=== PATIENT | male | born 1955 | race Caucasian/White ===

== ENCOUNTER 2017-01-23 14:10 | Emergency (ER) | payer SELFPAY ==
[~2017-01-23] VITALS: Ht 177.8 cm; Wt 119.3 kg
[2017-01-23 14:30] VITALS: BP 154/74
== END 2017-01-23 17:03 | disposition left against medical advice (07) ==
LOC: ER 14:10
DX: R73.9 Hyperglycemia, unspecified (principal); Z53.21 Procedure and treatment not carried out due to patient leaving prior to being seen by health care provider; Z76.0 Encounter for issue of repeat prescription

== ENCOUNTER 2019-01-09 09:30 | Emergency (ER) | payer MEDICAID, OTHER ==
[~2019-01-09] VITALS: Ht 177.8 cm; Wt 113.4 kg
[2019-01-09 11:04] VITALS: BP 134/69
[2019-01-09] MEDS ORDERED: BACITRACIN TOP OINT 1 UD PKG TOP ONE (11:30)
[2019-01-09] MEDS ORDERED: LIDOCAINE 1% HCL (LOCAL ANESTH.) INJ 20ML MDV ONE (11:42)
[2019-01-09] MEDS ORDERED: LIDOCAINE 1% (LOCAL ANESTH.) PF 5ml SDV ID ONE (11:45)
[2019-01-09] MEDS ORDERED: cefTRIAXone SOD 1,000 MG VL IM ONE (12:15)
[2019-01-09] MEDS ORDERED: ALPRAZolam 0.5 MG TAB PO ONE (12:15)
== END 2019-01-09 12:38 | disposition home or self-care (01) ==
LOC: ER 09:33
DX: L02.31 Cutaneous abscess of buttock (principal); K59.00 Constipation, unspecified; R42 Dizziness and giddiness; E11.9 Type 2 diabetes mellitus without complications; E78.5 Hyperlipidemia, unspecified; I10 Essential (primary) hypertension; F17.210 Nicotine dependence, cigarettes, uncomplicated; Z98.61 Coronary angioplasty status
CPT/HCPCS: 10060; 96372; 99283; J0696; J2001

== ENCOUNTER 2019-01-11 10:09 | Emergency (ER) | payer MEDICAID ==
[~2019-01-11] VITALS: Ht 177.8 cm; Wt 117.9 kg
[2019-01-11 11:30] VITALS: BP 117/61
== END 2019-01-11 12:02 | disposition home or self-care (01) ==
LOC: ER 10:09
DX: L02.31 Cutaneous abscess of buttock (principal); E11.9 Type 2 diabetes mellitus without complications; E78.5 Hyperlipidemia, unspecified; I10 Essential (primary) hypertension; F17.200 Nicotine dependence, unspecified, uncomplicated; Z48.00 Encounter for change or removal of nonsurgical wound dressing; Z98.61 Coronary angioplasty status

== ENCOUNTER 2019-05-06 08:22 | Emergency (ER) | payer MEDICAID ==
[~2019-05-06] VITALS: Ht 177.8 cm; Wt 113.4 kg
[2019-05-06 09:30] LABS: Basophils # (auto) 0.1 uL; Eosinophils # (auto) 0.2 uL; Eosinophils % (auto) 2.1 % (0.0-7.0); Hemoglobin 13.8 g/dL (13.5-17.5); Monocytes # (auto) 1.1 uL
[2019-05-06 09:32] LABS: Basophils % (auto) 0.9 % (0.0-2.0); Hematocrit 41.6 % (41.0-53.0); Lymphocytes # (auto) 1.9 uL; Lymphocytes % (auto) 19.3 % (10.0-50.0); Mean Corpuscular Hgb Conc. 33.3 g/dL (32.0-36.0); Mean Corpuscular Volume 81.2 fL (80.0-100.0); Monocytes % (auto) 11.2 % (0.0-12.0); Neutrophils # (auto) 6.7 uL; Neutrophils % (auto) 66.5 % (37.0-80.0); Platelet Count (auto) 229 10^3/uL (140-450); Red Blood Cells 5.12 10^6/uL (4.5-5.90); Red Cell Distribution Width 16.4 % (11.8-14.3); White Blood Cell 10.1 10^3/uL (4.4-10.8)
[2019-05-06 09:43] LABS: Calcium 9.1 mg/dL (8.5-10.1); Potassium 4.2 mmol/L (3.5-5.1)
[2019-05-06 09:48] LABS: Albumin 3.4 g/dL (3.4-5.0); Bilirubin, Total 0.4 mg/dL (0.2-1.0); Total Protein 7.4 g/dL (6.4-8.2)
[2019-05-06 09:51] LABS: INR 1.29 (0.9-1.15); Partial Thromboplastin Time 31.6 sec (23.64-32.05)
[2019-05-06 10:22] VITALS: BP 110/67
== END 2019-05-06 10:31 | disposition home or self-care (01) ==
LOC: ER 08:22
DX: R04.0 Epistaxis (principal); E11.9 Type 2 diabetes mellitus without complications; E78.5 Hyperlipidemia, unspecified; I10 Essential (primary) hypertension; F17.200 Nicotine dependence, unspecified, uncomplicated; Z98.61 Coronary angioplasty status
CPT/HCPCS: 30901; 36415; 80053; 82962; 85025; 85610; 85730

== ENCOUNTER 2019-05-06 16:03 | Emergency (ER) | payer MEDICAID ==
[~2019-05-06] VITALS: Ht 177.8 cm; Wt 113.4 kg
[2019-05-06 16:23] VITALS: BP 135/62
== END 2019-05-06 17:00 | disposition left against medical advice (07) ==
LOC: ER 16:06
DX: R04.0 Epistaxis (principal); I25.10 Atherosclerotic heart disease of native coronary artery without angina pectoris; E11.9 Type 2 diabetes mellitus without complications; E78.5 Hyperlipidemia, unspecified; I10 Essential (primary) hypertension; F17.210 Nicotine dependence, cigarettes, uncomplicated; Z98.61 Coronary angioplasty status; Z53.29 Procedure and treatment not carried out because of patient's decision for other reasons
CPT/HCPCS: 30901

== ENCOUNTER 2025-04-08 08:20 | Inpatient (IN) | payer OTHER, MEDICAID ==
[~2025-04-08] VITALS: Ht 177.8 cm; Wt 95.2 kg
--- NOTE | 2025-04-08 08:43 | ED.PDOC ---
History of Present Illness HPI Comments 69-year-old male presents to the ER with spouse and with the prior medical history of her lipids, CAD, AFib, hypertension; surgical history of pacemaker, stent placed three months ago and is taking Plavix as well as the chief complaint of diarrhea for five weeks. Patient reports on having diarrhea for the past five week which is non-stopped and watery. Patient nodes on feeling weak, and has not seen his PCP. Denies chills, fever, N/V, SOB, CP. No other associated symptoms, modifiers, recent injuries or sick contacts present at this time. Chief Complaint: Diarrhea Time Seen by MD: 08:30 Primary Care Provider: CASSANDRA Reviewed Notes: Nurses Notes, Medications, Allergies Allergies: Coded Allergies: NO KNOWN ALLERGIES (Unverified , 01/23/17) Information Source: Patient Mode of Arrival: Ambulatory Severity: Moderate Timing: Weeks Duration: Since onset Prehospital treatment: None Past Medical History PAST MEDICAL HISTORY: AFIB, CAD, High Lipids, HTN Surgical History: Pacemaker Surgical History (Other): Stent placed 3 months ago in is taking Plavix currently Family History Family History: Reviewed,noncontributory to illness, Unknown Social History Smoker: Non-Smoker Alcohol: Denies ETOH Use Drugs: Denies Drug Use Lives In: Home Constitutional: reports: weakness; denies: chills, diaphoresis, fatigue, fever, malaise, sweats, others EENTM: denies: blurred vision, double vision, ear bleeding, ear discharge, ear drainage, ear pain, ear ringing, eye pain, eye redness, hearing loss, mouth pain, mouth swelling, nasal discharge, nose bleeding, nose congestion, nose pain, photophobia, tearing, throat pain, throat swelling, voice changes, others Respiratory: denies: cough, hemoptysis, orthopnea, SOB at rest, shortness of breath, SOB with excertion, stridor, wheezing, others Cardiovascular: denies: chest pain, dizzy spells, diaphoresis, Dyspnea on exertion, edema, irregular heart beat, left arm pain, lightheadedness, palpitations, PND, syncope, others Gastrointestinal: reports: diarrhea; denies: abdomen distended, abdominal pain, blood streaked bowels, constipated, dysphagia, difficulty swallowing, hematemes is, melena, nausea, poor appetite, poor fluid intake, rectal bleeding, rectal pain, vomiting, others Genitourinary: denies: burning, dysuria, flank pain, frequency, hematuria, incontinence, penile discharge, penile sore, pain, testicle pain, testicle swelling, urgency, others Neurological: denies: dizziness, fainting, headache, left sided numbness, left sided weakness, numbness, paresthesia, pre-existing deficit, right sided numbness, right sided weakness, seizure, speech problems, tingling, tremors, weakness, others Musculoskeletal: denies: back pain, gout, joint pain, joint swelling, muscle pain, muscle stiffness, neck pain, others Integumetry: denies: bruises, change in color, change in hair/nails, dryness, laceration, lesions, lumps, rash, wounds, others Allergic/Immunocompromised: denies: Difficulty Healing, Frequent Infections, Hives, Itching, others Hematologic/Lymphatic: denies: anemia, blood clots, easy bleeding, easy bruising, swollen glands, others Endocrine: denies: excessive hunger, excessive sweating, excessive thirst, excessive urination, flushing, intolerance to cold, intolerance to heat, unex plained weight gain, unexplained weight loss, others Psychiatric: denies: anxiety, bipolar disorder, depression, hopeless, panic disorder, schizophrenia, sleepless, suicidal, others All Other Systems: Reviewed and Negative Physical Exam General Appearance: Moderate Distress, Normal HEENT: Normal ENT Inspection, Pharynx Normal, TMs Normal Neck: Full Range of Motion, Non-Tender, Normal, Normal Inspection Respiratory: Chest Non-Tender, Lungs Clear, No Accessory Muscle Use, No Respiratory Distress, Normal Breath Sounds Cardiovascular: No Edema, No JVD, No Murmur, No Gallop, Normal Peripheral Pulses, Regular Rate/Rhythm Breast Exam: Deferred Gastrointestinal: No Organomegaly, Non Tender, No Pulsatile Mass, Normal Bowel Sounds, Soft Genitalia: Deferred Pelvic: Deferred Rectal: Deferred Extremities: No calf tenderness, Normal capillary refill, Normal inspection, Normal range of motion, Non-tender, No pedal edema Musculoskeletal : Apperance: Normal Neurologic: Alert, guard captain II-XII nml as Tested, No Motor Deficits, Normal Affect, Normal Mood, No Sensory Deficits Cerebellar Function: Normal Reflexes: Normal Skin: Dry, Pallor, Warm Lymphatic: No Adenopathy Was a procedure done? Was a procedure done?: No Differential Dx Considerations may include: Gastroenteritis Electrolyte imbalance X-Ray, Labs, Meds, VS Vital Signs Date Time Temp Pulse Resp B/P (MAP) Pulse Ox O2 Delivery O2 Flow Rate FiO2 04/08/25 10:06 97.9 60 18 108/52 (70) 96 97.9 04/08/25 08:36 98.0 82 16 119/59 (79) 96 98.0 Lab Test 04/08/25 09:50 04/08/25 08:46 Range/Units Urine Color Light-yellow Yellow Urine Clarity Clear Clear Urine pH 5.0 5.0-9.0 Urine Specific [place] 1.030 1.001-1.035 Urine Protein Negative Negative Urine Ketones Negative Negative Urine Blood Trace H Negative /uL Urine Nitrite Negative Negative Urine Bilirubin Negative Negative Urine Urobilinogen Normal Negative mg/dL Urine Leukocyte Esterase Negative Negative /uL Urine RBC 1 0 - 3 /hpf Urine Microscopic WBC < 1 0-3 /HPF Urine Squamous Epithelial Cells None seen <5 /hpf Urine Bacteria None seen None Seen /hpf Urine Glucose 4+ H Normal mg/dL Stool for White Cells Pending White Blood Count 8.3 4.4-10.8 10^3/uL Red Blood Count 5.63 4.5-5.90 10^6/uL Hemoglobin 17.4 13.5-17.5 g/dL Hematocrit 50.9 41.0-53.0 % Mean Corpuscular Volume 90.5 80.0-100.0 fL Mean Corpuscular Hemoglobin 30.9 28.0-32.0 pg Mean Corpuscular Hemoglobin Concent 34.1 32.0-36.0 g/dL Red Cell Distribution Width 16.2 H 11.8-14.3 % Platelet Count 155 140-450 10^3/uL Mean Platelet Volume 7.8 6.9-10.8 fL Neutrophils (%) (Auto) 69.3 37.0-80.0 % Lymphocytes (%) (Auto) 15.3 10.0-50.0 % Monocytes (%) (Auto) 13.2 H 0.0-12.0 % Eosinophils (%) (Auto) 1.2 0.0-7.0 % Basophils (%) (Auto) 1.0 0.0-2.0 % Neutrophils # (Auto) 5.7 1.6-8.6 10 ^3/uL Lymphocytes # (Auto) 1.3 0.4-5.4 10 ^3/uL Monocytes # (Auto) 1.1 0-1.3 10 ^3/uL Eosinophils # (Auto) 0.1 0-0.8 10 ^3/uL Basophils # (Auto) 0.1 0-0.2 10 ^3/uL Nucleated Red Blood Cells 0.3 % Sodium Level 140 136-145 mmol/L Potassium Level 4.0 3.5-5.1 mmol/L Chloride Level 109 H 98-107 mmol/L Carbon Dioxide Level 26 20-31 mmol/L Anion Gap 5 5-15 Blood Urea Nitrogen 14 9-23 mg/dL Creatinine 1.03 0.700-1.30 mg/dL Glomerular Filtration Rate Calc 79 >90 mL/min BUN/Creatinine Ratio 13.6 10.0-20.0 Serum Glucose 165 H 74-106 mg/dL Calcium Level 9.7 8.7-10.4 mg/dL Current Medications Medications (Trade) Dose Ordered Sig/Baldomero Route Start Time Stop Time Status Last Admin Sodium Chloride 1,000 ml @ 1,000 mls/hr Q1H ONCE IV 04/08/25 08:45 04/08/25 09:44 DC 04/08/25 09:48 Diphenoxylate HCl/ Atropine (Lomotil Tablet) 5 mg ONCE ONCE PO 04/08/25 08:45 04/08/25 08:46 DC 04/08/25 09:50 Patient alert. Complaining of generalized weakness. Has been having diarrhea for many weeks. Vitals stable. Answering questions. Establish intravenous access. Was given fluids. Was given Lomotil. Has a pacemaker in place. Cardiac stent in place. He is taking his blood thinner. Reviewed his history. Continue monitoring. Time of 1ST Reevaluation: 09:00 Reevaluation 1ST: Unchanged Patient Education/Counseling: Diagnosis, Treatment, Prognosis Family Education/Counseling: Diagnosis, Treatment, Prognosis Departure 1 Departure Time of Disposition: 09:06 Impression: Primary Impression: Gastroenteritis Disposition: ADMITTED INPATIENT Admit to: Med Surg Condition: Guarded Critical Care Note Critical Care Time?: No Stability Stability form required: No Heart Score Heart Score: Heart Score Response (Comments) Value History Slightly Suspicious 0 EKG Normal 0 Age >65 2 Risk Factors >3 or Hx ASHD 2 Troponin N/A 0 Total 4 I personally scribed for SHAQUILLE WATSON MD ([email or web address]) on 04/08/25 at 08:43. Electronically submitted by Ashish Loredo ([email or web address]). SHAQUILLE WATSON MD Apr 08, 2025 08:43
[2025-04-08 08:59] LABS: Basophils # (auto) 0.1 10 ^3/uL (0-0.2); Eosinophils # (auto) 0.1 10 ^3/uL (0-0.8); Eosinophils % (auto) 1.2 % (0.0-7.0); Hematocrit 50.9 % (41.0-53.0); Hemoglobin 17.4 g/dL (13.5-17.5); Lymphocytes # (auto) 1.3 10 ^3/uL (0.4-5.4); Lymphocytes % (auto) 15.3 % (10.0-50.0); Mean Corpuscular Hemoglobin 30.9 pg (28.0-32.0); Mean Corpuscular Hgb Conc. 34.1 g/dL (32.0-36.0); Mean Corpuscular Volume 90.5 fL (80.0-100.0); Monocytes # (auto) 1.1 10 ^3/uL (0-1.3); Monocytes % (auto) 13.2 % (0.0-12.0); Neutrophils # (auto) 5.7 10 ^3/uL (1.6-8.6); Neutrophils % (auto) 69.3 % (37.0-80.0); Nucleated Red Blood Cells % 0.3 %; Platelet Count (auto) 155 10^3/uL (140-450); Red Blood Cells 5.63 10^6/uL (4.5-5.90); Red Cell Distribution Width 16.2 % (11.8-14.3); White Blood Cell 8.3 10^3/uL (4.4-10.8)
[2025-04-08 09:07] LABS: Sodium 140 mmol/L (136-145)
[2025-04-08 09:08] LABS: Anion Gap 5 (5-15); Calcium 9.7 mg/dL (8.7-10.4); Carbon Dioxide 26 mmol/L (20-31)
[2025-04-08 09:10] LABS: Chloride 109 mmol/L (98-107)
[2025-04-08 09:13] LABS: BUN/Creatinine Ratio 13.6 (10.0-20.0); Blood Urea Nitrogen 14 mg/dL (9-23)
[2025-04-08 09:22] LABS: Glucose 165 mg/dL (74-106)
[2025-04-08] MEDS: SODIUM CHLORIDE 0.9% 1,000 ML IV ONE ×2 (09:48→12:06)
[2025-04-08] MEDS: DIPHENOXYLATE W/ATROPINE 2.5 MG TAB PO ONE (09:50)
[2025-04-08 10:07] LABS: Urine Bacteria None Seen /hpf (None Seen)
[2025-04-08 10:16] LABS: Urine Blood TRACE /uL (Negative); Urine Clarity Clear (Clear); Urine Color Light-Yellow (Yellow); Urine Protein, UAD Negative (Negative); Urine Squamous Epithelial Cell None Seen /hpf (<5); Urine Urobilinogen Normal (Negative); Urine WBC < 1 /HPF (0-3)
[2025-04-08] MEDS ORDERED: ONDANSETRON HCL 4 MG/2 ML VIAL IV PRN (11:45)
[2025-04-08] MEDS ORDERED: ACETAMINOPHEN 325 MG TAB PO PRN ×2 (11:45→13:15)
[2025-04-08] MEDS ORDERED: DEXTROSE (50%) 50ML SYRG IV PRN (11:45)
[2025-04-08] MEDS ORDERED: TIZA-142 PO (11:51)
[2025-04-08] MEDS ORDERED: INSU1INJ19 SC (11:51)
[2025-04-08] MEDS ORDERED: MET25T PO (11:51)
[2025-04-08] MEDS ORDERED: CLOP75TA70 PO (11:51)
[2025-04-08] MEDS ORDERED: GABA-1250 PO (11:51)
[2025-04-08] MEDS ORDERED: FERR325T20 PO (11:51)
[2025-04-08] MEDS ORDERED: ALLO300T2 PO (11:51)
[2025-04-08] MEDS ORDERED: HYDR-4072 PO (11:51)
[2025-04-08] MEDS ORDERED: FINE10TA PO (11:51)
[2025-04-08] MEDS ORDERED: SIMV40TA18 PO (11:51)
[2025-04-08] MEDS ORDERED: RIVA10TA2 PO (11:51)
[2025-04-08] MEDS ORDERED: ISOS1TAB28 PO (11:51)
[2025-04-08] MEDS ORDERED: DAPA5TAB2 PO (11:51)
--- NOTE | 2025-04-08 12:22 | DVHHP2 ---
History of Present Illness Reason for Visit: Diarrhea History of Present Illness Huber Sam is a 69-year-old male with past medical history of coronary artery disease, peripheral artery disease, hyperlipidemia, hypertension, diabetes, peripheral neuropathy, and atrial fibrillation who came in for diarrhea for 5 weeks. Patient states he has not sought treatment for his diarrhea due to being afraid he would have an accident while waiting. He states he was using the restroom every 15 minutes and now it is more frequently. He states he started having accidents in his sleep, that he had 2 last night. He states the diarrhea has a foul odor. Cardiovascular: AFIB, CAD, HTN, hyperipidemia Endocrine: Diabetes Past Surgical History: Appendectomy, Other (Pacemaker, cardiac stent, right foot 1st & 2nd toe amputation,), Tonsillectomy Smoke: <1 pack per day ALCOHOL: none Drugs: None Lives: with Family Domestic Violence: Neg Review of Systems Constitutional: No: Fever, Chills, Sweats, Weakness, Malaise, Other Eyes: No: Pain, Vision change, Conjunctivae inflammation, Eyelid inflammation, Other, Redness ENT: No: Ear pain, Ear discharge, Nose pain, Nose discharge, Nose congestion, Mouth pain, Mouth swelling, Throat pain, Throat swelling, Other Respiratory: No: Cough, Dry, Shortness of breath, SOB with excertion, Wheezing, Hemoptysis, Pleuritic Pain, Sputum, Wheezing, Other Cardiovascular: No: Chest Pain, Palpitations, Orthopnea, Paroxysmal Noc. Dyspnea, Edema, Lt Headedness, Other Gastrointestinal: Diarrhea; No: Nausea, Vomiting, Abdominal Pain, Constipation, Melena, Hematochezia, Other Genitourinary: No Dysuria, No Frequency, No Incontinence, No Hematuria, No Retention, No Other Musculoskeletal: No: other, neck pain, shoulder pain, arm pain, back pain, hand pain, leg pain, foot pain Skin: No: Rash, Lesions, Jaundice, Bruising, Other Neurological: No: Weakness, Numbness, Incoordination, Change in speech, Confusion, Seizures, Other Allergies: Coded Allergies: NO KNOWN ALLERGIES (Unverified , 01/23/17) Medications Current Medications Medications Dose Ordered Sig/Baldomero Route Start Time Stop Time Status Last Admin Dose Admin Ondansetron HCl 4 mg Q4HP PRN IV 04/08/25 11:45 UNV Acetaminophen 650 mg Q6HP PRN PO 04/08/25 11:45 UNV Metronidazole 500 mg Q8HR PO 04/08/25 14:00 UNV Diagnostic Test (Pha) 1 strip ACHS 04/08/25 17:00 UNV Insulin Human Regular ACHS SC 04/08/25 17:00 UNV Dextrose 50 ml UD PRN IV 04/08/25 11:45 UNV Exam Vital Signs Vital Signs Date Time Temp Pulse Resp B/P (MAP) Pulse Ox O2 Delivery O2 Flow Rate FiO2 04/08/25 11:26 77 20 111/50 (70) 96 04/08/25 10:06 97.9 97.9 General Appearance: Alert, Oriented X3, Cooperative HEENT: Atraumatic, PERRLA Respiratory: Clear to auscultation, Normal air movement Cardiovascular: Regular rate, Normal S1, Normal S2 Abdominal: Normal bowel sounds, Soft, No tenderness, Other Extremities: No clubbing, No cyanosis, No edema Skin: No rashes, No breakdown, No significant lesion Neuro: Normal gait, Normal speech, Strength at 5/5 X4 ext, Normal tone, Sensation intact Psych/Mental Status: Mental status NL, Mood NL Labs/Xrays Labs Test 04/08/25 09:50 04/08/25 08:46 Range/Units Urine Color Light-yellow Yellow Urine Clarity Clear Clear Urine pH 5.0 5.0-9.0 Urine Specific [place] 1.030 1.001-1.035 Urine Protein Negative Negative Urine Ketones Negative Negative Urine Blood Trace H Negative /uL Urine Nitrite Negative Negative Urine Bilirubin Negative Negative Urine Urobilinogen Normal Negative mg/dL Urine Leukocyte Esterase Negative Negative /uL Urine RBC 1 0 - 3 /hpf Urine Microscopic WBC < 1 0-3 /HPF Urine Squamous Epithelial Cells None seen <5 /hpf Urine Bacteria None seen None Seen /hpf Urine Glucose 4+ H Normal mg/dL Stool for White Cells None seen White Blood Count 8.3 4.4-10.8 10^3/uL Red Blood Count 5.63 4.5-5.90 10^6/uL Hemoglobin 17.4 13.5-17.5 g/dL Hematocrit 50.9 41.0-53.0 % Mean Corpuscular Volume 90.5 80.0-100.0 fL Mean Corpuscular Hemoglobin 30.9 28.0-32.0 pg Mean Corpuscular Hemoglobin Concent 34.1 32.0-36.0 g/dL Red Cell Distribution Width 16.2 H 11.8-14.3 % Platelet Count 155 140-450 10^3/uL Mean Platelet Volume 7.8 6.9-10.8 fL Neutrophils (%) (Auto) 69.3 37.0-80.0 % Lymphocytes (%) (Auto) 15.3 10.0-50.0 % Monocytes (%) (Auto) 13.2 H 0.0-12.0 % Eosinophils (%) (Auto) 1.2 0.0-7.0 % Basophils (%) (Auto) 1.0 0.0-2.0 % Neutrophils # (Auto) 5.7 1.6-8.6 10 ^3/uL Lymphocytes # (Auto) 1.3 0.4-5.4 10 ^3/uL Monocytes # (Auto) 1.1 0-1.3 10 ^3/uL Eosinophils # (Auto) 0.1 0-0.8 10 ^3/uL Basophils # (Auto) 0.1 0-0.2 10 ^3/uL Nucleated Red Blood Cells 0.3 % Sodium Level 140 136-145 mmol/L Potassium Level 4.0 3.5-5.1 mmol/L Chloride Level 109 H 98-107 mmol/L Carbon Dioxide Level 26 20-31 mmol/L Anion Gap 5 5-15 Blood Urea Nitrogen 14 9-23 mg/dL Creatinine 1.03 0.700-1.30 mg/dL Glomerular Filtration Rate Calc 79 >90 mL/min BUN/Creatinine Ratio 13.6 10.0-20.0 Serum Glucose 165 H 74-106 mg/dL Calcium Level 9.7 8.7-10.4 mg/dL Assessment/Plan Assessment/Plan Assessment: Gastroenteritis, Possible C-Diff, Wounds to bilateral feet, Hypertension, Coronary artery disease, Peripheral artery disease, Atrial fibrillation, Hyperlipidemia, Diabetes, Plan: Admit to Med-Surg, Send stool for C-Diff, ova/parasites, WBC, and culture, IV hydration, Start PO antibiotics, Wound care consult, Consider GI consult, Home medications reconciled, Plan discussed with: Patient, Spouse My Orders Orders - SANCHO PEREZ Procedure Category Date Status Time Ova & Parasite Exam [facility] 04/08/25 Logged 11:11 Admit ADMIT 6/2/25 Transmitted 11:41 Code Status CODE 04/08/25 Transmitted 11:41 Ondansetron Hcl PHA 04/08/25 Logged (Zofran) 11:45 Complete Blood Count LAB 04/09/25 Verified 04:00 Comprehensive LAB 04/09/25 Verified Metabolic Panel 04:00 Condition: Serious IRENE 04/08/25 In Process 11:41 Acetaminophen Tablet PHA 04/08/25 Logged (Tylenol Tablet) 11:45 Metronidazole Tablet PHA 04/08/25 Logged (Flagyl Tablet) 14:00 Sodium Chloride 0.9% PHA 04/08/25 Logged 11:45 Glucose Blood PHA 04/08/25 Logged (Accu-Chek Comfort 17:00 Insulin R (Human) PHA 04/08/25 Logged (Insulin R) 17:00 Dextrose 50% Syringe PHA 04/08/25 Logged 11:45 Clopidogrel Bisulfate PHA 04/09/25 Transmitted (Plavix) 10:00 Gabapentin Capsule PHA 04/08/25 Transmitted (Neurontin Capsule) 14:00 Hydrocodone-Acet PHA 04/08/25 Transmitted 10/325mg Tab ([place] 12:00 Metoprolol Tartrate PHA 04/08/25 Transmitted Tablet (Lopressor Ta 22:00 Rivaroxaban Tablet PHA 04/09/25 Transmitted (Xarelto Tablet) 10:00 (Nf) Allopurinol PHA 04/09/25 Transmitted 10:00 (Nf) Dapagliflozin PHA 04/09/25 Transmitted Propanediol 10:00 (Nf) Ferrous Sulfate PHA 04/09/25 Transmitted (Ferosul) 10:00 (Nf) Finerenone PHA 04/09/25 Transmitted (Kerendia) 10:00 (Nf) Insulin Glargine PHA 04/09/25 Transmitted (Basaglar Kwikpen) 10:00 (Nf) Isosorbide PHA 04/09/25 Transmitted Mononitrate 10:00 (Nf) Tizanidine PHA 04/08/25 Transmitted Hydrochloride 12:00 Atorvastatin (Lipitor) PHA 04/08/25 Transmitted 22:00 Date of Service: Apr 08, 2025 Billing Provider: SANCHO PEREZ Common Visit Codes: [id number] INP/OBS CARE (MOD) SANCHO PEREZ Apr 08, 2025 12:22
[2025-04-08] MEDS: Tizanidine Hydrochloride 4 MG TABLET PO SCH (14:49)
[2025-04-08] MEDS: GABAPENTIN 300 MG CAP PO SCH (14:51)
[2025-04-08] MEDS: metroNIDAZOLE 500 MG TAB PO SCH (14:51)
[2025-04-08] MEDS: ACCU-CHEK COMFORT CURVE STRIP VI SCH (17:00)
[2025-04-08] MEDS: InsuLIN REG 1unit/0.01ml Soln (100units/ml) SC SCH (17:00)
[2025-04-08] MEDS: VANCOMYCIN HCL 250 MG CAP PO SCH (18:24)
[2025-04-08] MEDS: ATORVASTATIN 20 MG TAB PO SCH (22:13)
[2025-04-08] MEDS: METOPROLOL TARTRATE 25 MG TAB PO SCH (22:14)
[2025-04-08 22:30] VITALS: PULSE 92; RESP 15; O2SAT 98
[2025-04-09 06:58] LABS: Basophils # (auto) 0.1 10 ^3/uL (0-0.2); Eosinophils # (auto) 0.1 10 ^3/uL (0-0.8); Eosinophils % (auto) 2.1 % (0.0-7.0); Hematocrit 48.1 % (41.0-53.0); Hemoglobin 16.3 g/dL (13.5-17.5); Lymphocytes # (auto) 1.5 10 ^3/uL (0.4-5.4); Lymphocytes % (auto) 21.3 % (10.0-50.0); Mean Corpuscular Hemoglobin 30.6 pg (28.0-32.0); Mean Corpuscular Hgb Conc. 33.9 g/dL (32.0-36.0); Mean Corpuscular Volume 90.2 fL (80.0-100.0); Monocytes % (auto) 13.7 % (0.0-12.0); Neutrophils # (auto) 4.4 10 ^3/uL (1.6-8.6); Neutrophils % (auto) 61.9 % (37.0-80.0); Nucleated Red Blood Cells % 0.2 %; Platelet Count (auto) 140 10^3/uL (140-450); Red Blood Cells 5.33 10^6/uL (4.5-5.90); Red Cell Distribution Width 15.8 % (11.8-14.3); White Blood Cell 7.1 10^3/uL (4.4-10.8)
[2025-04-09 07:17] LABS: Alanine Aminotransferase 20 U/L (7-40); Albumin 4.2 g/dL (3.2-4.8); Alkaline Phosphatase 66 U/L (46-116); Anion Gap 9 (5-15); Aspartate Aminotransferase 20 U/L (13-40); BUN/Creatinine Ratio 15.7 (10.0-20.0); Blood Urea Nitrogen 13 mg/dL (9-23); Calcium 9.1 mg/dL (8.7-10.4); Carbon Dioxide 23 mmol/L (20-31); Glucose 76 mg/dL (74-106); Potassium 4.1 mmol/L (3.5-5.1); Sodium 139 mmol/L (136-145); Total Protein 6.5 g/dL (5.7-8.2)
[2025-04-09 07:18] LABS: Bilirubin, Total 0.8 mg/dL (0.2-1.0)
[2025-04-09 07:22] LABS: Chloride 107 mmol/L (98-107)
[2025-04-09] MEDS: FERROUS SULFATE 325mg EC TAB PO SCH (08:39)
[2025-04-09] MEDS: ISOSORBIDE MONONITRATE ER 60 MG TAB PO SCH (08:39)
[2025-04-09] MEDS: ALLOPURINOL 100 MG TAB PO SCH (08:40)
[2025-04-09] MEDS: CLOPIDOGREL BISULFATE 75 MG TAB PO SCH (08:40)
[2025-04-09] MEDS: DAPAGLIFLOZIN PROPANEDIOL 5 MG PO SCH (10:00)
[2025-04-09] MEDS: FINERENONE 10 MG PO SCH (10:00)
[2025-04-09] MEDS: RIVAROXABAN 10 MG TAB PO SCH (10:54)
[2025-04-09 11:42] VITALS: BP 116/53; PULSE 66; RESP 17; TEMP 98.2; O2SAT 97
[2025-04-09] MEDS: HYDROcodone-ACET 10/325MG TAB PO PRN (12:41)
[2025-04-09 13:00] VITALS: BP 115/69; PULSE 77; RESP 18; TEMP 97.9; O2SAT 98
--- NOTE | 2025-04-09 13:55 | DVHPN2 ---
Subjective 69-year-old male with a history of AFib, hypertension, type 2 diabetes came with a chief complaint of diarrhea for 5 weeks Apparently he had bilateral leg cellulitis about 2 months ago and [facility] and was given antibiotics and then following that after he finished antibiotics his diarrhea started He has been having it for 5 weeks and he was not better is to seek medical attention until now Changes from previous H/P or p: Changes Eyes: No Pain, No Vision change, No Conjunctivae inflammation, No Eyelid inflammation, No Other, No Redness ENT: No Ear pain, No Ear discharge, No Nose pain, No Nose discharge, No Nose congestion, No Mouth pain, No Mouth swelling, No Throat pain, No Throat swelling, No Other Cardiovascular: No Chest Pain, No Palpitations, No Orthopnea, No Paroxysmal Noc. Dyspnea, No Edema, No Lt Headedness, No Other Respiratory: No Cough, No Dry, No Shortness of breath, No SOB with excertion, No Wheezing, No Hemoptysis, No Pleuritic Pain, No Sputum, No Other Gastrointestinal: No Nausea, No Vomiting, No Abdominal Pain; Diarrhea; No Constipation, No Melena, No Hematochezia, No Other Genitourinary: No Dysuria, No Frequency, No Incontinence, No Hematuria, No Retention, No Other Musculoskeletal: No other, No neck pain, No shoulder pain, No arm pain, No back pain, No hand pain, No leg pain, No foot pain Skin: No Rash, No Lesions, No Jaundice, No Bruising, No Other Objective Vitals Vital Signs Date Time Temp Pulse Resp B/P (MAP) Pulse Ox O2 Delivery O2 Flow Rate FiO2 04/09/25 11:42 66 17 97 Room Air* 0 21 04/09/25 11:42 98.2 116/53 (74) 98.2 Intake/Output Intake and Output 04/09/25 07:00 Intake Total 1000 ml Balance 1000 ml Intake IV Total 1000 ml General Appearance: Alert, Oriented X3, Cooperative, No acute distress Lungs: Clear to auscultation, Normal air movement Cardiovascular: Regular rate, Normal S1 Abdomen: Normal bowel sounds, Soft, No tenderness Extremities: No edema Medications Current Medications Medications Dose Ordered Sig/Baldomero Route Start Time Stop Time Status Last Admin Dose Admin Ondansetron HCl 4 mg Q4HP PRN IV 04/08/25 11:45 Diagnostic Test (Pha) 1 strip ACHS 04/08/25 17:00 04/09/25 11:30 1 STRIP Insulin Human Regular ACHS SC 04/08/25 17:00 04/08/25 17:00 2 UNITS Dextrose 50 ml UD PRN IV 04/08/25 11:45 Clopidogrel Bisulfate 75 mg DAILY PO 04/09/25 10:00 04/09/25 08:40 75 MG Gabapentin 300 mg TID PO 04/08/25 14:00 04/09/25 06:34 300 MG Acetaminophen/ Hydrocodone Bitart 1 tab Q8HPRN PRN PO 04/08/25 12:00 04/09/25 12:41 1 TAB Metoprolol Tartrate 12.5 mg BID PO 04/08/25 22:00 04/09/25 08:39 12.5 MG Rivaroxaban 10 mg DAILY PO 04/09/25 10:00 04/09/25 10:54 10 MG Allopurinol 300 mg DAILY PO 04/09/25 10:00 04/09/25 08:40 300 MG Patient Own Medication 1 tab DAILY PO 04/09/25 10:00 Ferrous Sulfate 325 mg DAILY PO 04/09/25 10:00 04/09/25 08:39 325 MG Patient Own Medication 1 tab DAILY PO 04/09/25 10:00 Insulin Glargine 40 units HS SC 04/09/25 22:00 Isosorbide Mononitrate 30 mg DAILY PO 04/09/25 10:00 04/09/25 08:39 30 MG Patient Own Medication 1 tab Q8H PO 04/08/25 13:00 Atorvastatin Calcium 20 mg HS PO 04/08/25 22:00 04/08/25 22:13 20 MG Acetaminophen 650 mg Q6HP PRN PO 04/08/25 13:15 Vancomycin HCl 500 mg QID PO 04/08/25 18:00 04/09/25 12:41 500 MG Laboratory Results Laboratory Tests 04/09/25 06:19 Chemistry Test 04/09/25 06:19 Albumin 4.2 g/dL (3.2-4.8) Calcium Level 9.1 mg/dL (8.7-10.4) Total Protein 6.5 g/dL (5.7-8.2) LFT Test 04/09/25 06:19 Alanine Aminotransferase (ALT) 20 U/L (7-40) Alkaline Phosphatase 66 U/L (46-116) Aspartate Amino Transferase (AST) 20 U/L (13-40) Total Bilirubin 0.8 mg/dL (0.2-1.0) Urinalysis Test 04/08/25 09:50 Urine Color Light-yellow (Yellow) Urine Clarity Clear (Clear) Urine pH 5.0 (5.0-9.0) Urine Specific [place] 1.030 (1.001-1.035) Urine Protein Negative (Negative) Urine Ketones Negative (Negative) Urine Blood Trace /uL (Negative) H Urine Nitrite Negative (Negative) Urine Bilirubin Negative (Negative) Urine Urobilinogen Normal mg/dL (Negative) Urine Leukocyte Esterase Negative /uL (Negative) Urine RBC 1 /hpf (0 - 3) Urine Microscopic WBC < 1 /HPF (0-3) Urine Squamous Epithelial Cells None seen /hpf (<5) Urine Bacteria None seen /hpf (None Seen) Urine Glucose 4+ mg/dL (Normal) H Microbiology Microbiology Date/Time Source Procedure Growth Status 04/08/25 09:50 Stool Stool Culture - Preliminary Resulted 04/08/25 09:50 Stool Shiga Toxin I & II Pending Resulted 04/08/25 09:50 Stool Clostridium difficile Toxin Assay - Final Resulted Assessment/Plan Assessment/Plan Acute C diff colitis Diarrhea due to the above Hypotension due to the above Acute kidney injury due to vasomotor nephropathy Dehydration Atrial fibrillation, paroxysmal Type 2 diabetes Hypertension Plan IV fluids Clear liquid diet P.o. vancomycin Xarelto Plavix Lipitor Resume the home medications Monitor closely Full code Advance directives discussed for 23 minutes Congran Florastor Plan discussed with: Patient Date of Service: Apr 09, 2025 Billing Provider: NATALIA HUDSON MD Common Visit Codes: [id number] INP/OBS CARE(HIGH) Secondary Visit Codes: [id number] CARE PLAN 30 MINUTES NATALIA HUDSON MD Apr 09, 2025 13:55
[2025-04-09] MEDS: CHOLESTYRAMINE 4 GM POWDER PO ONE (14:58)
[2025-04-09 16:52] VITALS: BP 128/75; PULSE 63; RESP 18; TEMP 96.8; O2SAT 98
[2025-04-09 21:00] VITALS: BP 137/65; PULSE 65; RESP 16; TEMP 98; O2SAT 97
[2025-04-09] MEDS ORDERED: FLORASTOR (S. BOULARDII) 250 MG CAP PO SCH (22:00)
[2025-04-09] MEDS: INSULIN LANTUS (GLARGINE) 1 /0.01ml (100units/ml) SC SCH (22:00)
[2025-04-09] MEDS: CHOLESTYRAMINE 4 GM POWDER PO SCH (23:35)
[2025-04-10 01:00] VITALS: BP 126/64; PULSE 86; RESP 18; TEMP 98; O2SAT 99
[2025-04-10 05:00] VITALS: BP 131/65; PULSE 71; RESP 16; TEMP 97.5; O2SAT 97
[2025-04-10 05:57] LABS: Basophils # (auto) 0.1 10 ^3/uL (0-0.2); Basophils % (auto) 0.8 % (0.0-2.0); Eosinophils # (auto) 0.1 10 ^3/uL (0-0.8); Eosinophils % (auto) 1.7 % (0.0-7.0); Hematocrit 48.3 % (41.0-53.0); Hemoglobin 16.6 g/dL (13.5-17.5); Lymphocytes # (auto) 1.2 10 ^3/uL (0.4-5.4); Mean Corpuscular Hemoglobin 30.6 pg (28.0-32.0); Mean Corpuscular Hgb Conc. 34.3 g/dL (32.0-36.0); Mean Corpuscular Volume 89.2 fL (80.0-100.0); Monocytes # (auto) 1.1 10 ^3/uL (0-1.3); Monocytes % (auto) 15.4 % (0.0-12.0); Neutrophils # (auto) 4.7 10 ^3/uL (1.6-8.6); Neutrophils % (auto) 65.1 % (37.0-80.0); Nucleated Red Blood Cells % 0.2 %; Platelet Count (auto) 143 10^3/uL (140-450); Red Blood Cells 5.41 10^6/uL (4.5-5.90); Red Cell Distribution Width 15.6 % (11.8-14.3); White Blood Cell 7.2 10^3/uL (4.4-10.8)
[2025-04-10 06:22] LABS: Alanine Aminotransferase 17 U/L (7-40); Albumin 4.2 g/dL (3.2-4.8); Alkaline Phosphatase 64 U/L (46-116); Anion Gap 8 (5-15); Aspartate Aminotransferase 21 U/L (13-40); BUN/Creatinine Ratio 15.8 (10.0-20.0); Bilirubin, Total 0.7 mg/dL (0.2-1.0); Blood Urea Nitrogen 15 mg/dL (9-23); Calcium 9.4 mg/dL (8.7-10.4); Carbon Dioxide 28 mmol/L (20-31); Chloride 104 mmol/L (98-107); Glucose 78 mg/dL (74-106); Potassium 4.4 mmol/L (3.5-5.1); Sodium 140 mmol/L (136-145); Total Protein 6.7 g/dL (5.7-8.2)
--- NOTE | 2025-04-10 07:29 | ECG ---
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
[2025-04-10 09:00] VITALS: BP 129/62; PULSE 80; RESP 17; TEMP 97; O2SAT 97
[2025-04-10] MEDS ORDERED: FLORASTOR (S. BOULARDII) 250 MG CAP PO SCH (10:00)
[2025-04-10 13:00] VITALS: BP 131/74; PULSE 60; RESP 18; TEMP 98.2; O2SAT 96
[2025-04-10 17:03] VITALS: BP 106/66; PULSE 61; RESP 17; TEMP 97.2; O2SAT 97
--- NOTE | 2025-04-10 19:09 | DVHPN2 ---
Subjective Doing better Less diarrhea Changes from previous H/P or p: Changes Eyes: No Pain, No Vision change, No Conjunctivae inflammation, No Eyelid inflammation, No Other, No Redness ENT: No Ear pain, No Ear discharge, No Nose pain, No Nose discharge, No Nose congestion, No Mouth pain, No Mouth swelling, No Throat pain, No Throat swelling, No Other Cardiovascular: No Chest Pain, No Palpitations, No Orthopnea, No Paroxysmal Noc. Dyspnea, No Edema, No Lt Headedness, No Other Respiratory: No Cough, No Dry, No Shortness of breath, No SOB with excertion, No Wheezing, No Hemoptysis, No Pleuritic Pain, No Sputum, No Other Gastrointestinal: No Nausea, No Vomiting, No Abdominal Pain; Diarrhea; No Constipation, No Melena, No Hematochezia, No Other Genitourinary: No Dysuria, No Frequency, No Incontinence, No Hematuria, No Retention, No Other Musculoskeletal: No other, No neck pain, No shoulder pain, No arm pain, No back pain, No hand pain, No leg pain, No foot pain Skin: No Rash, No Lesions, No Jaundice, No Bruising, No Other Objective Vitals Vital Signs Date Time Temp Pulse Resp B/P (MAP) Pulse Ox O2 Delivery O2 Flow Rate FiO2 04/10/25 17:03 97.2 61 17 106/66 (79) 97 97.2 04/10/25 07:30 Room Air* 0 21 Intake/Output Intake and Output 04/10/25 07:00 Intake Total 683 ml Output Total 1715 ml Balance -1032 ml Intake Oral 683 ml Output Urine Total 1700 ml Stool Total 15 ml # Voids 6 # Bowel Movements 1 General Appearance: Alert, Oriented X3, Cooperative, No acute distress Lungs: Clear to auscultation, Normal air movement Cardiovascular: Regular rate, Normal S1 Abdomen: Normal bowel sounds, Soft, No tenderness Extremities: No edema Medications Current Medications Medications Dose Ordered Sig/Baldomero Route Start Time Stop Time Status Last Admin Dose Admin Ondansetron HCl 4 mg Q4HP PRN IV 04/08/25 11:45 Diagnostic Test (Pha) 1 strip ACHS 04/08/25 17:00 04/10/25 17:00 1 STRIP Insulin Human Regular ACHS SC 04/08/25 17:00 04/10/25 13:05 2 UNITS Dextrose 50 ml UD PRN IV 04/08/25 11:45 Clopidogrel Bisulfate 75 mg DAILY PO 04/09/25 10:00 04/10/25 10:15 75 MG Gabapentin 300 mg TID PO 04/08/25 14:00 04/10/25 13:27 300 MG Acetaminophen/ Hydrocodone Bitart 1 tab Q8HPRN PRN PO 04/08/25 12:00 04/09/25 12:41 1 TAB Metoprolol Tartrate 12.5 mg BID PO 04/08/25 22:00 04/10/25 10:16 12.5 MG Rivaroxaban 10 mg DAILY PO 04/09/25 10:00 04/10/25 10:16 10 MG Allopurinol 300 mg DAILY PO 04/09/25 10:00 04/10/25 10:13 300 MG Patient Own Medication 1 tab DAILY PO 04/09/25 10:00 Ferrous Sulfate 325 mg DAILY PO 04/09/25 10:00 04/10/25 10:16 325 MG Patient Own Medication 1 tab DAILY PO 04/09/25 10:00 Insulin Glargine 40 units HS SC 04/09/25 22:00 Isosorbide Mononitrate 30 mg DAILY PO 04/09/25 10:00 04/10/25 10:15 30 MG Patient Own Medication 1 tab Q8H PO 04/08/25 13:00 Atorvastatin Calcium 20 mg HS PO 04/08/25 22:00 04/09/25 23:16 20 MG Acetaminophen 650 mg Q6HP PRN PO 04/08/25 13:15 Vancomycin HCl 500 mg QID PO 04/08/25 18:00 04/10/25 17:10 500 MG Cholestyramine Resin 4 gm Q12HR@23 PO 04/09/25 23:00 04/10/25 10:17 4 GM Saccharomyces Boulardii 250 mg DAILY PO 04/10/25 10:00 Hold Saccharomyces Boulardii 250 mg BID PO 04/09/25 22:00 Hold Laboratory Results Laboratory Tests 04/10/25 05:00 Chemistry Test 04/10/25 05:00 Albumin 4.2 g/dL (3.2-4.8) Calcium Level 9.4 mg/dL (8.7-10.4) Magnesium Level 2.0 mg/dL (1.6-2.6) Total Protein 6.7 g/dL (5.7-8.2) LFT Test 04/10/25 05:00 Alanine Aminotransferase (ALT) 17 U/L (7-40) Alkaline Phosphatase 64 U/L (46-116) Aspartate Amino Transferase (AST) 21 U/L (13-40) Total Bilirubin 0.7 mg/dL (0.2-1.0) Urinalysis Test 04/08/25 09:50 Urine Color Light-yellow (Yellow) Urine Clarity Clear (Clear) Urine pH 5.0 (5.0-9.0) Urine Specific [place] 1.030 (1.001-1.035) Urine Protein Negative (Negative) Urine Ketones Negative (Negative) Urine Blood Trace /uL (Negative) H Urine Nitrite Negative (Negative) Urine Bilirubin Negative (Negative) Urine Urobilinogen Normal mg/dL (Negative) Urine Leukocyte Esterase Negative /uL (Negative) Urine RBC 1 /hpf (0 - 3) Urine Microscopic WBC < 1 /HPF (0-3) Urine Squamous Epithelial Cells None seen /hpf (<5) Urine Bacteria None seen /hpf (None Seen) Urine Glucose 4+ mg/dL (Normal) H Microbiology Microbiology Date/Time Source Procedure Growth Status 04/08/25 09:50 Stool Stool Culture - Preliminary Resulted 04/08/25 09:50 Stool Shiga Toxin I & II Pending Resulted 04/08/25 09:50 Stool Clostridium difficile Toxin Assay - Final Resulted Assessment/Plan Assessment/Plan Acute C diff colitis Diarrhea due to the above Hypotension due to the above Acute kidney injury due to vasomotor nephropathy Dehydration Atrial fibrillation, paroxysmal Type 2 diabetes Hypertension Plan IV fluids Clear liquid diet P.o. vancomycin Xarelto Plavix Lipitor Resume the home medications Monitor closely Full code Advance directives discussed for 23 minutes Kris Florastor 04/10/23: C.Diff colitis: PO Kris Fabian Florastor Advance diet Monitor electrolytes Plan discussed with: Patient My Orders Orders - NATALIA HUDSON MD Procedure Category Date Status Time Regular Diet DIET 04/10/25 Transmitted Breakfast Date of Service: Apr 10, 2025 Billing Provider: NATALIA HUDSON MD Common Visit Codes: [id number] INP/OBS CARE(HIGH) NATALIA HUDSON MD Apr 10, 2025 19:09
[2025-04-10 21:00] VITALS: BP 109/50; PULSE 61; RESP 18; TEMP 98.5; O2SAT 96
[2025-04-10] MEDS: FLORASTOR (S. BOULARDII) 250 MG CAP PO ONE (21:36)
[2025-04-11 05:00] VITALS: BP 123/65; PULSE 87; RESP 18; TEMP 98.1; O2SAT 95
[2025-04-11 06:37] LABS: Calcium 9.1 mg/dL (8.7-10.4); Potassium 4.2 mmol/L (3.5-5.1); Sodium 139 mmol/L (136-145)
[2025-04-11 06:38] LABS: Anion Gap 7 (5-15); Carbon Dioxide 24 mmol/L (20-31)
[2025-04-11 06:43] LABS: BUN/Creatinine Ratio 17.7 (10.0-20.0); Blood Urea Nitrogen 14 mg/dL (9-23)
[2025-04-11 06:44] LABS: Magnesium 1.9 mg/dL (1.6-2.6)
[2025-04-11 06:45] LABS: Chloride 108 mmol/L (98-107); Glucose 113 mg/dL (74-106)
[2025-04-11 08:29] VITALS: BP 114/60; PULSE 76; RESP 18; TEMP 98.1; O2SAT 96
[2025-04-11] MEDS: FLORASTOR (S. BOULARDII) 250 MG CAP PO SCH (09:25)
--- NOTE | 2025-04-11 09:25 | DVHPN2 ---
Subjective Still c/o diarrhea All day yesterday and this am Changes from previous H/P or p: Changes Eyes: No Pain, No Vision change, No Conjunctivae inflammation, No Eyelid inflammation, No Other, No Redness ENT: No Ear pain, No Ear discharge, No Nose pain, No Nose discharge, No Nose congestion, No Mouth pain, No Mouth swelling, No Throat pain, No Throat swelling, No Other Cardiovascular: No Chest Pain, No Palpitations, No Orthopnea, No Paroxysmal Noc. Dyspnea, No Edema, No Lt Headedness, No Other Respiratory: No Cough, No Dry, No Shortness of breath, No SOB with excertion, No Wheezing, No Hemoptysis, No Pleuritic Pain, No Sputum, No Other Gastrointestinal: No Nausea, No Vomiting, No Abdominal Pain; Diarrhea; No Constipation, No Melena, No Hematochezia, No Other Genitourinary: No Dysuria, No Frequency, No Incontinence, No Hematuria, No Retention, No Other Musculoskeletal: No other, No neck pain, No shoulder pain, No arm pain, No back pain, No hand pain, No leg pain, No foot pain Skin: No Rash, No Lesions, No Jaundice, No Bruising, No Other Objective Vitals Vital Signs Date Time Temp Pulse Resp B/P (MAP) Pulse Ox O2 Delivery O2 Flow Rate FiO2 04/11/25 08:29 98.1 76 18 114/60 (78) 96 98.1 04/11/25 08:09 Room Air* 0 21 Intake/Output Intake and Output 04/11/25 07:00 Intake Total 1388 ml Output Total 506 ml Balance 882 ml Intake Oral 1388 ml Output Urine Total 500 ml Stool Total 6 ml # Voids 5 General Appearance: Alert, Oriented X3, Cooperative, No acute distress Lungs: Clear to auscultation, Normal air movement Cardiovascular: Regular rate, Normal S1 Abdomen: Normal bowel sounds, Soft, No tenderness Extremities: No edema Medications Current Medications Medications Dose Ordered Sig/Baldomero Route Start Time Stop Time Status Last Admin Dose Admin Ondansetron HCl 4 mg Q4HP PRN IV 04/08/25 11:45 Diagnostic Test (Pha) 1 strip ACHS 04/08/25 17:00 04/11/25 06:30 1 STRIP Insulin Human Regular ACHS SC 04/08/25 17:00 04/10/25 21:34 3 UNITS Dextrose 50 ml UD PRN IV 04/08/25 11:45 Clopidogrel Bisulfate 75 mg DAILY PO 04/09/25 10:00 04/10/25 10:15 75 MG Gabapentin 300 mg TID PO 04/08/25 14:00 04/11/25 06:29 300 MG Acetaminophen/ Hydrocodone Bitart 1 tab Q8HPRN PRN PO 04/08/25 12:00 04/09/25 12:41 1 TAB Metoprolol Tartrate 12.5 mg BID PO 04/08/25 22:00 04/10/25 21:39 12.5 MG Rivaroxaban 10 mg DAILY PO 04/09/25 10:00 04/10/25 10:16 10 MG Allopurinol 300 mg DAILY PO 04/09/25 10:00 04/10/25 10:13 300 MG Patient Own Medication 1 tab DAILY PO 04/09/25 10:00 Ferrous Sulfate 325 mg DAILY PO 04/09/25 10:00 04/10/25 10:16 325 MG Patient Own Medication 1 tab DAILY PO 04/09/25 10:00 Insulin Glargine 40 units HS SC 04/09/25 22:00 Isosorbide Mononitrate 30 mg DAILY PO 04/09/25 10:00 04/10/25 10:15 30 MG Patient Own Medication 1 tab Q8H PO 04/08/25 13:00 Atorvastatin Calcium 20 mg HS PO 04/08/25 22:00 04/10/25 21:36 20 MG Acetaminophen 650 mg Q6HP PRN PO 04/08/25 13:15 Vancomycin HCl 500 mg QID PO 04/08/25 18:00 04/11/25 06:29 500 MG Cholestyramine Resin 4 gm Q12HR@11,23 PO 04/09/25 23:00 04/10/25 10:17 4 GM Saccharomyces Boulardii 250 mg DAILY PO 04/11/25 10:00 Laboratory Results Laboratory Tests 04/10/25 05:00 04/11/25 06:00 Chemistry Test 04/11/25 06:00 Calcium Level 9.1 mg/dL (8.7-10.4) Magnesium Level 1.9 mg/dL (1.6-2.6) Urinalysis Test 04/08/25 09:50 Urine Color Light-yellow (Yellow) Urine Clarity Clear (Clear) Urine pH 5.0 (5.0-9.0) Urine Specific [place] 1.030 (1.001-1.035) Urine Protein Negative (Negative) Urine Ketones Negative (Negative) Urine Blood Trace /uL (Negative) H Urine Nitrite Negative (Negative) Urine Bilirubin Negative (Negative) Urine Urobilinogen Normal mg/dL (Negative) Urine Leukocyte Esterase Negative /uL (Negative) Urine RBC 1 /hpf (0 - 3) Urine Microscopic WBC < 1 /HPF (0-3) Urine Squamous Epithelial Cells None seen /hpf (<5) Urine Bacteria None seen /hpf (None Seen) Urine Glucose 4+ mg/dL (Normal) H Microbiology Microbiology Date/Time Source Procedure Growth Status 04/08/25 09:50 Stool Stool Culture - Preliminary Resulted 04/08/25 09:50 Stool Shiga Toxin I & II Pending Resulted 04/08/25 09:50 Stool Clostridium difficile Toxin Assay - Final Resulted Assessment/Plan Assessment/Plan Acute C diff colitis Diarrhea due to the above Hypotension due to the above Acute kidney injury due to vasomotor nephropathy Dehydration Atrial fibrillation, paroxysmal Type 2 diabetes Hypertension Plan IV fluids Clear liquid diet P.o. vancomycin Xarelto Plavix Lipitor Resume the home medications Monitor closely Full code Advance directives discussed for 23 minutes Kris Florastor 04/10/23: C.Diff colitis: PO VancoKris Florastkuldip Advance diet Monitor electrolytes 04/11/25: Diarrhea: Continue Questran C. Diff: Vanco po Cardiac diet Continue Florastor Plan discussed with: Patient My Orders Orders - NATALIA HUDSON MD Procedure Category Date Status Time Florastor (S. PHA 04/11/25 In Process Boulardii) (Florastor) 10:00 Consistent DIET 04/11/25 Transmitted Carb(Ccho)Diabetes Breakfast Date of Service: Apr 11, 2025 Billing Provider: NATALIA HUDSON MD Common Visit Codes: [id number] INP/OBS CARE(HIGH) NATALIA HUDSON MD Apr 11, 2025 09:25
[2025-04-11 13:21] VITALS: BP 110/56; PULSE 65; RESP 18; TEMP 97.8; O2SAT 98
[2025-04-11 16:58] VITALS: BP 116/55; PULSE 61; RESP 18; TEMP 98.4; O2SAT 96
[2025-04-11 20:43] VITALS: BP 100/57; PULSE 81; RESP 19; TEMP 97; O2SAT 96
[2025-04-12] VITALS (8 sets, daily range): BP systolic 106–119; BP diastolic 53–63; PULSE 59–74; RESP 16–19; TEMP 97–97.8; O2SAT 94–98
--- NOTE | 2025-04-12 14:27 | DVHPN2 ---
Subjective He is still reports diarrhea significant diarrhea overnight and this morning He is refusing to take the Questran Offered him to change his diet to clear liquids but he refused, he insisted on staying on on regular diet Changes from previous H/P or p: Changes Eyes: No Pain, No Vision change, No Conjunctivae inflammation, No Eyelid inflammation, No Other, No Redness ENT: No Ear pain, No Ear discharge, No Nose pain, No Nose discharge, No Nose congestion, No Mouth pain, No Mouth swelling, No Throat pain, No Throat swelling, No Other Cardiovascular: No Chest Pain, No Palpitations, No Orthopnea, No Paroxysmal Noc. Dyspnea, No Edema, No Lt Headedness, No Other Respiratory: No Cough, No Dry, No Shortness of breath, No SOB with excertion, No Wheezing, No Hemoptysis, No Pleuritic Pain, No Sputum, No Other Gastrointestinal: No Nausea, No Vomiting, No Abdominal Pain; Diarrhea; No Constipation, No Melena, No Hematochezia, No Other Genitourinary: No Dysuria, No Frequency, No Incontinence, No Hematuria, No Retention, No Other Musculoskeletal: No other, No neck pain, No shoulder pain, No arm pain, No back pain, No hand pain, No leg pain, No foot pain Skin: No Rash, No Lesions, No Jaundice, No Bruising, No Other Objective Vitals Vital Signs Date Time Temp Pulse Resp B/P (MAP) Pulse Ox O2 Delivery O2 Flow Rate FiO2 04/12/25 13:30 97.4 59 16 106/59 (75) 96 97.4 04/12/25 08:10 Room Air* 0 21 Intake/Output Intake and Output 04/12/25 07:00 Intake Total 1250 ml Output Total 800 ml Balance 450 ml Intake Oral 1250 ml Output Urine Total 800 ml # Voids 7 # Bowel Movements 20 General Appearance: Alert, Oriented X3, Cooperative, No acute distress Lungs: Clear to auscultation, Normal air movement Cardiovascular: Regular rate, Normal S1 Abdomen: Normal bowel sounds, Soft, No tenderness Extremities: No edema Medications Current Medications Medications Dose Ordered Sig/Baldomero Route Start Time Stop Time Status Last Admin Dose Admin Ondansetron HCl 4 mg Q4HP PRN IV 04/08/25 11:45 Diagnostic Test (Pha) 1 strip ACHS 04/08/25 17:00 04/12/25 11:30 1 STRIP Insulin Human Regular ACHS SC 04/08/25 17:00 04/11/25 21:37 2 UNITS Dextrose 50 ml UD PRN IV 04/08/25 11:45 Clopidogrel Bisulfate 75 mg DAILY PO 04/09/25 10:00 04/12/25 09:46 75 MG Gabapentin 300 mg TID PO 04/08/25 14:00 04/12/25 07:06 300 MG Acetaminophen/ Hydrocodone Bitart 1 tab Q8HPRN PRN PO 04/08/25 12:00 04/12/25 07:06 1 TAB Metoprolol Tartrate 12.5 mg BID PO 04/08/25 22:00 04/12/25 09:46 12.5 MG Rivaroxaban 10 mg DAILY PO 04/09/25 10:00 04/12/25 09:47 10 MG Allopurinol 300 mg DAILY PO 04/09/25 10:00 04/12/25 09:47 300 MG Ferrous Sulfate 325 mg DAILY PO 04/09/25 10:00 04/12/25 10:01 325 MG Insulin Glargine 40 units HS SC 04/09/25 22:00 04/11/25 21:38 40 UNITS Isosorbide Mononitrate 30 mg DAILY PO 04/09/25 10:00 04/12/25 09:47 30 MG Atorvastatin Calcium 20 mg HS PO 04/08/25 22:00 04/11/25 21:45 20 MG Acetaminophen 650 mg Q6HP PRN PO 04/08/25 13:15 Vancomycin HCl 500 mg QID PO 04/08/25 18:00 04/12/25 12:07 500 MG Cholestyramine Resin 4 gm Q12HR@ PO 04/09/25 23:00 04/12/25 11:00 4 GM Saccharomyces Boulardii 250 mg DAILY PO 04/11/25 10:00 04/12/25 10:01 250 MG Diphenoxylate HCl/ Atropine 2.5 mg Q6HP PRN PO 04/12/25 11:30 Laboratory Results Laboratory Tests 04/10/25 05:00 04/11/25 06:00 Urinalysis Test 04/08/25 09:50 Urine Color Light-yellow (Yellow) Urine Clarity Clear (Clear) Urine pH 5.0 (5.0-9.0) Urine Specific [place] 1.030 (1.001-1.035) Urine Protein Negative (Negative) Urine Ketones Negative (Negative) Urine Blood Trace /uL (Negative) H Urine Nitrite Negative (Negative) Urine Bilirubin Negative (Negative) Urine Urobilinogen Normal mg/dL (Negative) Urine Leukocyte Esterase Negative /uL (Negative) Urine RBC 1 /hpf (0 - 3) Urine Microscopic WBC < 1 /HPF (0-3) Urine Squamous Epithelial Cells None seen /hpf (<5) Urine Bacteria None seen /hpf (None Seen) Urine Glucose 4+ mg/dL (Normal) H Microbiology Microbiology Date/Time Source Procedure Growth Status 04/08/25 09:50 Stool Stool Culture - Final Complete 04/08/25 09:50 Stool Shiga Toxin I & II - Final Complete 04/08/25 09:50 Stool Clostridium difficile Toxin Assay - Final Complete Assessment/Plan Assessment/Plan Acute C diff colitis Diarrhea due to the above Hypotension due to the above Acute kidney injury due to vasomotor nephropathy Dehydration Atrial fibrillation, paroxysmal Type 2 diabetes Hypertension Plan IV fluids Clear liquid diet P.o. vancomycin Xarelto Plavix Lipitor Resume the home medications Monitor closely Full code Advance directives discussed for 23 minutes Questran Florastor 04/10/23: C.Diff colitis: PO Vanco, Questran, Florastor Advance diet Monitor electrolytes 04/11/25: Diarrhea: Continue Questran C. Diff: Vanco po Cardiac diet Continue Florastor 04/12/2025: Continue with the p.o. vancomycin Continue Questran but he is refusing to take it I offered the patient to go on clear liquid diet for 1-2 days but he refused Lomotil p.r.n. for the diarrhea Monitor closely Plan discussed with: Patient My Orders Orders - NATALIA HUDSON MD Procedure Category Date Status Time Diphenoxylate/Atropine PHA 04/12/25 In Process Tablet (Lomotil T 11:30 Date of Service: Apr 12, 2025 Billing Provider: NATALIA HUDSON MD Common Visit Codes: [id number] INP/OBS CARE(HIGH) NATLAIA HUDSON MD Apr 12, 2025 14:26
[2025-04-12] MEDS: DIPHENOXYLATE W/ATROPINE 2.5 MG TAB PO PRN (14:59)
[2025-04-13] VITALS (9 sets, daily range): BP systolic 82–143; BP diastolic 46–70; PULSE 60–101; RESP 16–18; TEMP 96.5–97.9; O2SAT 93–100
--- NOTE | 2025-04-13 12:37 | DVHPN2 ---
Subjective Diarrhea is better Changes from previous H/P or p: Changes Eyes: No Pain, No Vision change, No Conjunctivae inflammation, No Eyelid inflammation, No Other, No Redness ENT: No Ear pain, No Ear discharge, No Nose pain, No Nose discharge, No Nose congestion, No Mouth pain, No Mouth swelling, No Throat pain, No Throat swelling, No Other Cardiovascular: No Chest Pain, No Palpitations, No Orthopnea, No Paroxysmal Noc. Dyspnea, No Edema, No Lt Headedness, No Other Respiratory: No Cough, No Dry, No Shortness of breath, No SOB with excertion, No Wheezing, No Hemoptysis, No Pleuritic Pain, No Sputum, No Other Gastrointestinal: No Nausea, No Vomiting, No Abdominal Pain; Diarrhea; No Constipation, No Melena, No Hematochezia, No Other Genitourinary: No Dysuria, No Frequency, No Incontinence, No Hematuria, No Retention, No Other Musculoskeletal: No other, No neck pain, No shoulder pain, No arm pain, No back pain, No hand pain, No leg pain, No foot pain Skin: No Rash, No Lesions, No Jaundice, No Bruising, No Other Objective Vitals Vital Signs Date Time Temp Pulse Resp B/P (MAP) Pulse Ox O2 Delivery O2 Flow Rate FiO2 04/13/25 09:00 97.2 60 16 104/56 (72) 99 97.2 04/13/25 08:00 Room Air* 0 21 Intake/Output Intake and Output 04/13/25 07:00 Intake Total 1600 ml Output Total 1500 ml Balance 100 ml Intake Oral 1600 ml Output Urine Total 1500 ml # Bowel Movements 7 General Appearance: Alert, Oriented X3, Cooperative, No acute distress Lungs: Clear to auscultation, Normal air movement Cardiovascular: Regular rate, Normal S1 Abdomen: Normal bowel sounds, Soft, No tenderness Extremities: No edema Medications Current Medications Medications Dose Ordered Sig/Baldomero Route Start Time Stop Time Status Last Admin Dose Admin Ondansetron HCl 4 mg Q4HP PRN IV 04/08/25 11:45 Diagnostic Test (Pha) 1 strip ACHS 04/08/25 17:00 04/13/25 11:30 1 STRIP Insulin Human Regular ACHS SC 04/08/25 17:00 04/12/25 21:37 2 UNITS Dextrose 50 ml UD PRN IV 04/08/25 11:45 Clopidogrel Bisulfate 75 mg DAILY PO 04/09/25 10:00 04/13/25 08:53 75 MG Gabapentin 300 mg TID PO 04/08/25 14:00 04/13/25 12:00 300 MG Acetaminophen/ Hydrocodone Bitart 1 tab Q8HPRN PRN PO 04/08/25 12:00 04/13/25 06:47 1 TAB Metoprolol Tartrate 12.5 mg BID PO 04/08/25 22:00 04/12/25 21:30 12.5 MG Rivaroxaban 10 mg DAILY PO 04/09/25 10:00 04/13/25 08:53 10 MG Allopurinol 300 mg DAILY PO 04/09/25 10:00 04/13/25 08:54 300 MG Ferrous Sulfate 325 mg DAILY PO 04/09/25 10:00 04/13/25 08:55 325 MG Insulin Glargine 40 units HS SC 04/09/25 22:00 04/12/25 21:37 40 UNITS Isosorbide Mononitrate 30 mg DAILY PO 04/09/25 10:00 04/13/25 08:55 30 MG Atorvastatin Calcium 20 mg HS PO 04/08/25 22:00 04/12/25 21:38 20 MG Acetaminophen 650 mg Q6HP PRN PO 04/08/25 13:15 Vancomycin HCl 500 mg QID PO 04/08/25 18:00 04/13/25 12:00 500 MG Cholestyramine Resin 4 gm Q12HR@11,23 PO 04/09/25 23:00 04/13/25 11:02 4 GM Saccharomyces Boulardii 250 mg DAILY PO 04/11/25 10:00 04/13/25 08:53 250 MG Diphenoxylate HCl/ Atropine 2.5 mg Q6HP PRN PO 04/12/25 11:30 04/13/25 09:02 2.5 MG Laboratory Results Laboratory Tests 04/10/25 05:00 04/11/25 06:00 Urinalysis Test 04/08/25 09:50 Urine Color Light-yellow (Yellow) Urine Clarity Clear (Clear) Urine pH 5.0 (5.0-9.0) Urine Specific [place] 1.030 (1.001-1.035) Urine Protein Negative (Negative) Urine Ketones Negative (Negative) Urine Blood Trace /uL (Negative) H Urine Nitrite Negative (Negative) Urine Bilirubin Negative (Negative) Urine Urobilinogen Normal mg/dL (Negative) Urine Leukocyte Esterase Negative /uL (Negative) Urine RBC 1 /hpf (0 - 3) Urine Microscopic WBC < 1 /HPF (0-3) Urine Squamous Epithelial Cells None seen /hpf (<5) Urine Bacteria None seen /hpf (None Seen) Urine Glucose 4+ mg/dL (Normal) H Microbiology Microbiology Date/Time Source Procedure Growth Status 04/08/25 09:50 Stool Stool Culture - Final Complete 04/08/25 09:50 Stool Shiga Toxin I & II - Final Complete 04/08/25 09:50 Stool Clostridium difficile Toxin Assay - Final Complete Assessment/Plan Assessment/Plan Acute C diff colitis Diarrhea due to the above Hypotension due to the above Acute kidney injury due to vasomotor nephropathy Dehydration Atrial fibrillation, paroxysmal Type 2 diabetes Hypertension Plan IV fluids Clear liquid diet P.o. vancomycin Xarelto Plavix Lipitor Resume the home medications Monitor closely Full code Advance directives discussed for 23 minutes Questran Florastor 04/10/23: C.Diff colitis: PO Vanco, Questran, Florastor Advance diet Monitor electrolytes 04/11/25: Diarrhea: Continue Questran C. Diff: Vanco po Cardiac diet Continue Florastor 04/12/2025: Continue with the p.o. vancomycin Continue Questran but he is refusing to take it I offered the patient to go on clear liquid diet for 1-2 days but he refused Lomotil p.r.n. for the diarrhea Monitor closely 04/13/2025: Continue the current management with p.o. vancomycin Florastor The patient is refusing Questran Lomotil p.r.n. Plan discussed with: Patient Date of Service: Apr 13, 2025 Billing Provider: NATALIA HUDSON MD Common Visit Codes: [id number] INP/OBS CARE(MOD) NATALIA HUDSON MD Apr 13, 2025 12:37
[2025-04-14] VITALS (7 sets, daily range): BP systolic 102–137; BP diastolic 39–68; PULSE 60–83; RESP 16–19; TEMP 96.6–98.8; O2SAT 94–99
[2025-04-14 05:56] LABS: Alanine Aminotransferase 16 U/L (7-40); Alkaline Phosphatase 59 U/L (46-116); Anion Gap 7 (5-15); Aspartate Aminotransferase 20 U/L (13-40); BUN/Creatinine Ratio 21.7 (10.0-20.0); Blood Urea Nitrogen 20 mg/dL (9-23); Calcium 9.7 mg/dL (8.7-10.4); Carbon Dioxide 28 mmol/L (20-31); Chloride 105 mmol/L (98-107); Magnesium 1.9 mg/dL (1.6-2.6); Potassium 4.6 mmol/L (3.5-5.1); Sodium 140 mmol/L (136-145); Total Protein 6.3 g/dL (5.7-8.2)
[2025-04-14 05:57] LABS: Albumin 3.9 g/dL (3.2-4.8); Bilirubin, Total 0.7 mg/dL (0.2-1.0)
[2025-04-14 06:15] LABS: Glucose 71 mg/dL (74-106)
--- NOTE | 2025-04-14 12:46 | DVHPN2 ---
Subjective He is still complaining of significant diarrhea and abdominal discomfort Changes from previous H/P or p: Changes Eyes: No Pain, No Vision change, No Conjunctivae inflammation, No Eyelid inflammation, No Other, No Redness ENT: No Ear pain, No Ear discharge, No Nose pain, No Nose discharge, No Nose congestion, No Mouth pain, No Mouth swelling, No Throat pain, No Throat swelling, No Other Cardiovascular: No Chest Pain, No Palpitations, No Orthopnea, No Paroxysmal Noc. Dyspnea, No Edema, No Lt Headedness, No Other Respiratory: No Cough, No Dry, No Shortness of breath, No SOB with excertion, No Wheezing, No Hemoptysis, No Pleuritic Pain, No Sputum, No Other Gastrointestinal: No Nausea, No Vomiting, No Abdominal Pain; Diarrhea; No Constipation, No Melena, No Hematochezia, No Other Genitourinary: No Dysuria, No Frequency, No Incontinence, No Hematuria, No Retention, No Other Musculoskeletal: No other, No neck pain, No shoulder pain, No arm pain, No back pain, No hand pain, No leg pain, No foot pain Skin: No Rash, No Lesions, No Jaundice, No Bruising, No Other Objective Vitals Vital Signs Date Time Temp Pulse Resp B/P (MAP) Pulse Ox O2 Delivery O2 Flow Rate FiO2 04/14/25 11:20 102/53 04/14/25 10:00 63 04/14/25 09:00 96.6 18 99 96.6 04/13/25 20:00 Room Air* 0 21 Intake/Output Intake and Output 04/14/25 07:00 Intake Total 1480 ml Output Total 750 ml Balance 730 ml Intake Oral 1480 ml Output Urine Total 750 ml # Voids 4 # Bowel Movements 3 General Appearance: Alert, Oriented X3, Cooperative, No acute distress Lungs: Clear to auscultation, Normal air movement Cardiovascular: Regular rate, Normal S1 Abdomen: Normal bowel sounds, Soft, No tenderness Extremities: No edema Medications Current Medications Medications Dose Ordered Sig/Baldomero Route Start Time Stop Time Status Last Admin Dose Admin Ondansetron HCl 4 mg Q4HP PRN IV 04/08/25 11:45 Diagnostic Test (Pha) 1 strip ACHS 04/08/25 17:00 04/14/25 07:00 1 STRIP Insulin Human Regular ACHS SC 04/08/25 17:00 04/13/25 21:59 40 UNITS Dextrose 50 ml UD PRN IV 04/08/25 11:45 Clopidogrel Bisulfate 75 mg DAILY PO 04/09/25 10:00 04/14/25 11:21 75 MG Gabapentin 300 mg TID PO 04/08/25 14:00 04/14/25 06:36 300 MG Acetaminophen/ Hydrocodone Bitart 1 tab Q8HPRN PRN PO 04/08/25 12:00 04/14/25 06:36 1 TAB Metoprolol Tartrate 12.5 mg BID PO 04/08/25 22:00 04/13/25 21:46 12.5 MG Rivaroxaban 10 mg DAILY PO 04/09/25 10:00 04/14/25 11:19 10 MG Allopurinol 300 mg DAILY PO 04/09/25 10:00 04/14/25 11:21 300 MG Ferrous Sulfate 325 mg DAILY PO 04/09/25 10:00 04/14/25 11:21 325 MG Insulin Glargine 40 units HS SC 04/09/25 22:00 04/13/25 22:00 40 UNITS Isosorbide Mononitrate 30 mg DAILY PO 04/09/25 10:00 04/14/25 11:20 30 MG Atorvastatin Calcium 20 mg HS PO 04/08/25 22:00 04/13/25 21:44 20 MG Acetaminophen 650 mg Q6HP PRN PO 04/08/25 13:15 Vancomycin HCl 500 mg QID PO 04/08/25 18:00 04/14/25 06:35 500 MG Cholestyramine Resin 4 gm Q12HR@23 PO 04/09/25 23:00 04/14/25 11:21 4 GM Saccharomyces Boulardii 250 mg DAILY PO 04/11/25 10:00 04/14/25 11:20 250 MG Diphenoxylate HCl/ Atropine 2.5 mg Q6HP PRN PO 04/12/25 11:30 04/14/25 11:22 2.5 MG Laboratory Results Laboratory Tests 04/10/25 05:00 04/14/25 04:40 Chemistry Test 04/14/25 04:40 Albumin 3.9 g/dL (3.2-4.8) Calcium Level 9.7 mg/dL (8.7-10.4) Magnesium Level 1.9 mg/dL (1.6-2.6) Total Protein 6.3 g/dL (5.7-8.2) LFT Test 04/14/25 04:40 Alanine Aminotransferase (ALT) 16 U/L (7-40) Alkaline Phosphatase 59 U/L (46-116) Aspartate Amino Transferase (AST) 20 U/L (13-40) Total Bilirubin 0.7 mg/dL (0.2-1.0) Urinalysis Test 04/08/25 09:50 Urine Color Light-yellow (Yellow) Urine Clarity Clear (Clear) Urine pH 5.0 (5.0-9.0) Urine Specific [place] 1.030 (1.001-1.035) Urine Protein Negative (Negative) Urine Ketones Negative (Negative) Urine Blood Trace /uL (Negative) H Urine Nitrite Negative (Negative) Urine Bilirubin Negative (Negative) Urine Urobilinogen Normal mg/dL (Negative) Urine Leukocyte Esterase Negative /uL (Negative) Urine RBC 1 /hpf (0 - 3) Urine Microscopic WBC < 1 /HPF (0-3) Urine Squamous Epithelial Cells None seen /hpf (<5) Urine Bacteria None seen /hpf (None Seen) Urine Glucose 4+ mg/dL (Normal) H Microbiology Microbiology Date/Time Source Procedure Growth Status 04/08/25 09:50 Stool Stool Culture - Final Complete 04/08/25 09:50 Stool Shiga Toxin I & II - Final Complete 04/08/25 09:50 Stool Clostridium difficile Toxin Assay - Final Complete Assessment/Plan Assessment/Plan Acute C diff colitis Diarrhea due to the above Hypotension due to the above Acute kidney injury due to vasomotor nephropathy Dehydration Atrial fibrillation, paroxysmal Type 2 diabetes Hypertension Plan IV fluids Clear liquid diet P.o. vancomycin Xarelto Plavix Lipitor Resume the home medications Monitor closely Full code Advance directives discussed for 23 minutes Questran Florastor 04/10/23: C.Diff colitis: PO Vanco, Questran, Florastor Advance diet Monitor electrolytes 04/11/25: Diarrhea: Continue Questran C. Diff: Vanco po Cardiac diet Continue Florastor 04/12/2025: Continue with the p.o. vancomycin Continue Questran but he is refusing to take it I offered the patient to go on clear liquid diet for 1-2 days but he refused Lomotil p.r.n. for the diarrhea Monitor closely 04/13/2025: Continue the current management with p.o. vancomycin Florastor The patient is refusing Questran Lomotil p.r.n. 04/14/2025: Continue the current management Continue p.o. vancomycin Florastor Questran Lomotil p.r.n. Since the patient is not improving, we will consult GI for further input Monitor closely The rest of the management will depend on the hospital course Plan discussed with: Patient Date of Service: Apr 14, 2025 Billing Provider: NATALIA HUDSON MD Common Visit Codes: [id number] INP/OBS CARE(HIGH) NATALIA HUDSON MD Apr 14, 2025 12:46
--- NOTE | 2025-04-14 16:12 | DVHINCON2 ---
Date of service: Apr 14, [address] Harris Reason for Consultation Abdominal pain diarrhea C diff colitis History of Present Illness History of diabetes coronary artery disease atrial fibrillation hypertension with status post stent placement on Plavix and Xarelto admitted with complaints of abdominal pain and severe diarrhea. Patient has got diabetic wound in the right leg and has been on antibiotics for the same Diarrhea was watery to semi-solid no gross bleed Has complaints of some mild abdominal pains and bloating no bleeding Past Medical History Past history history of coronary artery disease hypertension atrial fibrillation hyperlipidemia Past Surgical History Stent placement and pacemaker Family History: FH: colon cancer FH: diabetes mellitus FH: lung cancer FH: myocardial infarction Family History Noncontributory Social History Used to Smoke one pack of cigarettes a day but not anymore denies any alcohol or drug abuse Allergies: Coded Allergies: NO KNOWN ALLERGIES (Unverified , 01/23/17) Home Meds Reported Medications Hydrocodone-Acetaminophen (Hydrocodone/Acetaminophen 10-325 mg) 1 Tab Tab, 1 TAB PO Q8HPRN PRN 04/08/25 Clopidogrel Bisulfate (CLOPIDOGREL) 75 Mg Tab, 1 TAB PO DAILY 04/08/25 Ferrous Sulfate (Ferosul) 325 Mg Tab, 1 TAB PO DAILY 04/08/25 Simvastatin (Simvastatin) 40 Mg Tab, 1 TAB PO 04/08/25 Tizanidine Hydrochloride (Tizanidine Hcl) 4 Mg Tab, 1 TAB PO Q8H 04/08/25 Insulin Glargine (Basaglar Kwikpen) 100 Unit/Ml Inj, 40 UNIT SC DAILY 04/08/25 Allopurinol (Allopurinol) 300 Mg Tab, 1 TAB PO DAILY 04/08/25 Finerenone (Kerendia) 10 Mg Tab, 1 TAB PO DAILY 04/08/25 Dapagliflozin Propanediol (Dapagliflozin Propanediol) 5 Mg Tab, 1 TAB PO DAILY 04/08/25 Isosorbide Mononitrate (Isosorbide Mononitrate Er) 30 Mg Tab, 1 TAB PO DAILY 04/08/25 Gabapentin (Gabapentin) 300 Mg Cap, 1 CAP PO TID 04/08/25 Rivaroxaban (Xarelto Tablet) 10 Mg Tb, 1 TAB PO DAILY 04/08/25 Metoprolol Tartrate (Lopressor) 25 Mg Tb, 0.5 TAB PO BID 04/08/25 Review of Systems Noncontributory Vital Signs Vital Signs Date Time Temp Pulse Resp B/P (MAP) Pulse Ox O2 Delivery O2 Flow Rate FiO2 04/14/25 13:00 97.7 60 16 137/68 (91) 97 97.7 04/14/25 08:00 Room Air* 0 21 Physical Exam Moderately built and nourished male in no acute distress chronically ill-looking Vitals stable Lungs clear Cardiovascular unremarkable Abdomen soft mild fullness in both lower quadrants and periumbilically No rigidity no guarding no masses Extremities no edema Neuro grossly intact Labs/Diagnostic Data Labs Test 04/14/25 11:35 04/14/25 04:40 04/10/25 05:00 04/08/25 09:50 Range/Units POC Glucose 110 H 70-106 mg/dl Sodium Level 140 136-145 mmol/L Potassium Level 4.6 3.5-5.1 mmol/L Chloride Level 105 98-107 mmol/L Carbon Dioxide Level 28 20-31 mmol/L Anion Gap 7 5-15 Blood Urea Nitrogen 20 9-23 mg/dL Creatinine 0.92 0.700-1.30 mg/dL Glomerular Filtration Rate Calc 91 >90 mL/min BUN/Creatinine Ratio 21.7 H 10.0-20.0 Serum Glucose 71 L 74-106 mg/dL Calcium Level 9.7 8.7-10.4 mg/dL Magnesium Level 1.9 1.6-2.6 mg/dL Total Bilirubin 0.7 0.2-1.0 mg/dL Aspartate Amino Transferase (AST) 20 13-40 U/L Alanine Aminotransferase (ALT) 16 7-40 U/L Alkaline Phosphatase 59 46-116 U/L Total Protein 6.3 5.7-8.2 g/dL Albumin 3.9 3.2-4.8 g/dL White Blood Count 7.2 4.4-10.8 10^3/uL Red Blood Count 5.41 4.5-5.90 10^6/uL Hemoglobin 16.6 13.5-17.5 g/dL Hematocrit 48.3 41.0-53.0 % Mean Corpuscular Volume 89.2 80.0-100.0 fL Mean Corpuscular Hemoglobin 30.6 28.0-32.0 pg Mean Corpuscular Hemoglobin Concent 34.3 32.0-36.0 g/dL Red Cell Distribution Width 15.6 H 11.8-14.3 % Platelet Count 143 140-450 10^3/uL Mean Platelet Volume 8.0 6.9-10.8 fL Neutrophils (%) (Auto) 65.1 37.0-80.0 % Lymphocytes (%) (Auto) 17.0 10.0-50.0 % Monocytes (%) (Auto) 15.4 H 0.0-12.0 % Eosinophils (%) (Auto) 1.7 0.0-7.0 % Basophils (%) (Auto) 0.8 0.0-2.0 % Neutrophils # (Auto) 4.7 1.6-8.6 10 ^3/uL Lymphocytes # (Auto) 1.2 0.4-5.4 10 ^3/uL Monocytes # (Auto) 1.1 0-1.3 10 ^3/uL Eosinophils # (Auto) 0.1 0-0.8 10 ^3/uL Basophils # (Auto) 0.1 0-0.2 10 ^3/uL Nucleated Red Blood Cells 0.2 % Urine Color Light-yellow Yellow Urine Clarity Clear Clear Urine pH 5.0 5.0-9.0 Urine Specific [place] 1.030 1.001-1.035 Urine Protein Negative Negative Urine Ketones Negative Negative Urine Blood Trace H Negative /uL Urine Nitrite Negative Negative Urine Bilirubin Negative Negative Urine Urobilinogen Normal Negative mg/dL Urine Leukocyte Esterase Negative Negative /uL Urine RBC 1 0 - 3 /hpf Urine Microscopic WBC < 1 0-3 /HPF Urine Squamous Epithelial Cells None seen <5 /hpf Urine Bacteria None seen None Seen /hpf Urine Glucose 4+ H Normal mg/dL Stool for White Cells None seen Microbiology Date/Time Source Procedure Growth Status 04/08/25 09:50 Stool Stool Culture - Final Complete 04/08/25 09:50 Stool Shiga Toxin I & II - Final Complete 04/08/25 09:50 Stool Clostridium difficile Toxin Assay - Final Complete Assessment 63-year-old with complaints of abdominal pains diarrhea history of diabetes diabetic wound in the right leg are present antibiotics has got history of coronary artery disease atrial fibrillation pacemaker hypertension patient has C diff and has been on vancomycin but not responding still with significant diarrhea Labs were unrevealing Abdomen is soft with some fullness in the both lower quadrants no rigidity or guarding Clinical impression C diff diarrhea not responding to vancomycin Plan/Recommendation Continue vancomycin If symptoms persist will recommend to add fidaxomicin (Dificid) 200 mg daily for 10 days Also recommend to add cholestyramine and probiotic If still not controlled may need further workup including repeat CT colonoscopy as well as possible consideration for fecal transplant Thank you Dr. Barrow Plan discussed with: Patient DIEGO BARROW MD Apr 14, 2025 16:12
[2025-04-15] VITALS (7 sets, daily range): BP systolic 116–144; BP diastolic 59–85; PULSE 61–85; RESP 16–18; TEMP 97.1–98.8; O2SAT 94–98
[2025-04-15] MEDS ORDERED: OMNIPAQUE 12mg/ml 500ml ORAL SOLUTION PO ONE (01:20)
--- NOTE | 2025-04-15 06:10 | DVH ---
EXAM: CT Abdomen and Pelvis With Intravenous Contrast CLINICAL INDICATION: persistent diarrhea TECHNIQUE: Axial computed tomography images of the abdomen and pelvis with intravenous contrast. Th is CT exam was performed using one or more of the following dose reduction techniques: automated exp osure control, adjustment of the mA and/or kV according to patient size, and/or use of iterative josh nstruction technique. CONTRAST: RADIATION DOSE: CTDIvol = 21.49 mGy, DLP = 1193.65 mGy-cm COMPARISON: None FINDINGS: LUNG BASES: Unremarkable. No mass. No consolidation. MEDIASTINUM: Small esophageal hiatal hernia. ABDOMEN: LIVER: Fatty infiltration of the liver. GALLBLADDER AND BILE DUCTS: Unremarkable. No calcified stones. No ductal dilation. PANCREAS: Unremarkable. No mass. No ductal dilation. SPLEEN: Unremarkable. No splenomegaly. ADRENALS: Unremarkable. No mass. KIDNEYS AND URETERS: Punctate right nephrolithiasis without hydronephrosis. STOMACH AND BOWEL: Fecal retention in the colon consistent with constipation. Colonic diverticulos is without acute diverticulitis. No obstruction. PELVIS: APPENDIX: No findings to suggest acute appendicitis. BLADDER: Unremarkable. No mass. REPRODUCTIVE: Unremarkable as visualized. ABDOMEN and PELVIS: INTRAPERITONEAL SPACE: Unremarkable. No free air. No significant fluid collection. BONES/JOINTS: No acute fracture. No dislocation. SOFT TISSUES: Unremarkable. VASCULATURE: Scattered calcified atherosclerotic disease of aorta. No abdominal aortic aneurysm. LYMPH NODES: Unremarkable. No enlarged lymph nodes. OTHER FINDINGS: . . IMPRESSION: 1. Small esophageal hiatal hernia. 2. Fecal retention in the colon consistent with constipation. 3. Punctate right nephrolithiasis without hydronephrosis. 4. Colonic diverticulosis without acute diverticulitis.
--- NOTE | 2025-04-15 13:47 | DVHPN2 ---
Subjective He is c/o diarrhea CT scan however showed fecal impaction Changes from previous H/P or p: Changes Eyes: No Pain, No Vision change, No Conjunctivae inflammation, No Eyelid inflammation, No Other, No Redness ENT: No Ear pain, No Ear discharge, No Nose pain, No Nose discharge, No Nose congestion, No Mouth pain, No Mouth swelling, No Throat pain, No Throat swelling, No Other Cardiovascular: No Chest Pain, No Palpitations, No Orthopnea, No Paroxysmal Noc. Dyspnea, No Edema, No Lt Headedness, No Other Respiratory: No Cough, No Dry, No Shortness of breath, No SOB with excertion, No Wheezing, No Hemoptysis, No Pleuritic Pain, No Sputum, No Other Gastrointestinal: No Nausea, No Vomiting, No Abdominal Pain; Diarrhea; No Constipation, No Melena, No Hematochezia, No Other Genitourinary: No Dysuria, No Frequency, No Incontinence, No Hematuria, No Retention, No Other Musculoskeletal: No other, No neck pain, No shoulder pain, No arm pain, No back pain, No hand pain, No leg pain, No foot pain Skin: No Rash, No Lesions, No Jaundice, No Bruising, No Other Objective Vitals Vital Signs Date Time Temp Pulse Resp B/P (MAP) Pulse Ox O2 Delivery O2 Flow Rate FiO2 04/15/25 13:00 98.1 85 16 123/65 (84) 97 98.1 04/15/25 07:55 Room Air* 0 21 Intake/Output Intake and Output 04/15/25 07:00 Intake Total 1820 ml Output Total 900 ml Balance 920 ml Intake Oral 1820 ml Output Urine Total 900 ml # Voids 4 # Bowel Movements 2 General Appearance: Alert, Oriented X3, Cooperative, No acute distress Lungs: Clear to auscultation, Normal air movement Cardiovascular: Regular rate, Normal S1 Abdomen: Normal bowel sounds, Soft, No tenderness Extremities: No edema Medications Current Medications Medications Dose Ordered Sig/Baldomero Route Start Time Stop Time Status Last Admin Dose Admin Ondansetron HCl 4 mg Q4HP PRN IV 04/08/25 11:45 Diagnostic Test (Pha) 1 strip ACHS 04/08/25 17:00 04/15/25 11:30 1 STRIP Insulin Human Regular ACHS SC 04/08/25 17:00 04/14/25 22:13 3 UNITS Dextrose 50 ml UD PRN IV 04/08/25 11:45 Clopidogrel Bisulfate 75 mg DAILY PO 04/09/25 10:00 04/15/25 09:58 75 MG Gabapentin 300 mg TID PO 04/08/25 14:00 04/15/25 06:45 300 MG Acetaminophen/ Hydrocodone Bitart 1 tab Q8HPRN PRN PO 04/08/25 12:00 04/14/25 22:29 1 TAB Metoprolol Tartrate 12.5 mg BID PO 04/08/25 22:00 04/15/25 09:58 12.5 MG Rivaroxaban 10 mg DAILY PO 04/09/25 10:00 04/15/25 09:56 10 MG Allopurinol 300 mg DAILY PO 04/09/25 10:00 04/15/25 09:59 300 MG Ferrous Sulfate 325 mg DAILY PO 04/09/25 10:00 04/15/25 09:55 325 MG Insulin Glargine 40 units HS SC 04/09/25 22:00 04/14/25 22:13 40 UNITS Isosorbide Mononitrate 30 mg DAILY PO 04/09/25 10:00 04/15/25 09:57 30 MG Atorvastatin Calcium 20 mg HS PO 04/08/25 22:00 04/14/25 22:17 20 MG Acetaminophen 650 mg Q6HP PRN PO 04/08/25 13:15 Vancomycin HCl 500 mg QID PO 04/08/25 18:00 04/15/25 12:13 500 MG Saccharomyces Boulardii 250 mg DAILY PO 04/11/25 10:00 04/15/25 09:56 250 MG Laboratory Results Laboratory Tests 04/10/25 05:00 04/14/25 04:40 Urinalysis Test 04/08/25 09:50 Urine Color Light-yellow (Yellow) Urine Clarity Clear (Clear) Urine pH 5.0 (5.0-9.0) Urine Specific [place] 1.030 (1.001-1.035) Urine Protein Negative (Negative) Urine Ketones Negative (Negative) Urine Blood Trace /uL (Negative) H Urine Nitrite Negative (Negative) Urine Bilirubin Negative (Negative) Urine Urobilinogen Normal mg/dL (Negative) Urine Leukocyte Esterase Negative /uL (Negative) Urine RBC 1 /hpf (0 - 3) Urine Microscopic WBC < 1 /HPF (0-3) Urine Squamous Epithelial Cells None seen /hpf (<5) Urine Bacteria None seen /hpf (None Seen) Urine Glucose 4+ mg/dL (Normal) H Microbiology Microbiology Date/Time Source Procedure Growth Status 04/08/25 09:50 Stool Stool Culture - Final Complete 04/08/25 09:50 Stool Shiga Toxin I & II - Final Complete 04/08/25 09:50 Stool Clostridium difficile Toxin Assay - Final Complete Assessment/Plan Assessment/Plan Acute C diff colitis Diarrhea due to the above Hypotension due to the above Acute kidney injury due to vasomotor nephropathy Dehydration Atrial fibrillation, paroxysmal Type 2 diabetes Hypertension Plan IV fluids Clear liquid diet P.o. vancomycin Xarelto Plavix Lipitor Resume the home medications Monitor closely Full code Advance directives discussed for 23 minutes Questran Florastor 04/10/23: C.Diff colitis: PO Vanco, Questran, Florastor Advance diet Monitor electrolytes 04/11/25: Diarrhea: Continue Questran C. Diff: Vanco po Cardiac diet Continue Florastor 04/12/2025: Continue with the p.o. vancomycin Continue Questran but he is refusing to take it I offered the patient to go on clear liquid diet for 1-2 days but he refused Lomotil p.r.n. for the diarrhea Monitor closely 04/13/2025: Continue the current management with p.o. vancomycin Florastor The patient is refusing Questran Lomotil p.r.n. 04/14/2025: Continue the current management Continue p.o. vancomycin Florastor Questran Lomotil p.r.n. Since the patient is not improving, we will consult GI for further input Monitor closely The rest of the management will depend on the hospital course 04/15/2025: Diarrhea, most likely overflow diarrhea due to fecal impaction: Give tap water enema Discontinue Lomotil and Questran Continue p.o. vancomycin Plan discussed with: Patient Date of Service: Apr 15, 2025 Billing Provider: NATALIA HUDSON MD Common Visit Codes: [id number] INP/OBS CARE(HIGH) NATALIA HUDSON MD Apr 15, 2025 13:47
--- NOTE | 2025-04-15 16:14 | DVHPN2 ---
Progress Note - Dictate Date Seen: Apr 15, 2025 Has the PT tested + for MRSA If YES, has PT been informed?: No Medical Necessity Reason Pt with a Central, PICC or Fol: No Subjective Patient has still has got some diarrhea no bleeding vital signs Vital Sign Date Time Temp Pulse Resp B/P (MAP) Pulse Ox O2 Delivery O2 Flow Rate FiO2 04/15/25 13:00 98.1 85 16 123/65 (84) 97 98.1 04/15/25 07:55 Room Air* 0 21 Total Intake and Output 04/14/25 04/14/25 04/15/25 15:00 23:00 07:00 Intake Total 1020 ml 800 ml Output Total 900 ml Balance 1020 ml -100 ml medications Current Medications Medications Dose Ordered Sig/Baldomero Route Start Time Stop Time Status Last Admin Dose Admin Ondansetron HCl 4 mg Q4HP PRN IV 04/08/25 11:45 Diagnostic Test (Pha) 1 strip ACHS 04/08/25 17:00 04/15/25 11:30 1 STRIP Insulin Human Regular ACHS SC 04/08/25 17:00 04/14/25 22:13 3 UNITS Dextrose 50 ml UD PRN IV 04/08/25 11:45 Clopidogrel Bisulfate 75 mg DAILY PO 04/09/25 10:00 04/15/25 09:58 75 MG Gabapentin 300 mg TID PO 04/08/25 14:00 04/15/25 13:47 300 MG Acetaminophen/ Hydrocodone Bitart 1 tab Q8HPRN PRN PO 04/08/25 12:00 04/14/25 22:29 1 TAB Metoprolol Tartrate 12.5 mg BID PO 04/08/25 22:00 04/15/25 09:58 12.5 MG Rivaroxaban 10 mg DAILY PO 04/09/25 10:00 04/15/25 09:56 10 MG Allopurinol 300 mg DAILY PO 04/09/25 10:00 04/15/25 09:59 300 MG Ferrous Sulfate 325 mg DAILY PO 04/09/25 10:00 04/15/25 09:55 325 MG Insulin Glargine 40 units HS SC 04/09/25 22:00 04/14/25 22:13 40 UNITS Isosorbide Mononitrate 30 mg DAILY PO 04/09/25 10:00 04/15/25 09:57 30 MG Atorvastatin Calcium 20 mg HS PO 04/08/25 22:00 04/14/25 22:17 20 MG Acetaminophen 650 mg Q6HP PRN PO 04/08/25 13:15 Saccharomyces Boulardii 250 mg DAILY PO 04/11/25 10:00 04/15/25 09:56 250 MG Vancomycin HCl 125 mg QID PO 04/15/25 18:00 objective Abdomen is soft nontender CT scan showed fecal impaction with fecal retention no evidence any gross colitis or megacolon or or pneumatosis coli laboratory and microbiology Laboratory Tests 04/14/25 04:40 04/10/25 05:00 Test 04/14/25 04:40 Range/Units Serum Glucose 71 L 74-106 mg/dL Assessment/Plan Patient with complaints of C diff has got complaints of diarrhea CT scan showed some fecal impaction most probably overflow diarrhea and some element of C diff also No bleeding Continue with vancomycin and see If Symptoms persist may need further treatment as necessary Thank you Dr. Barrow Dietary Evaluation Review Comments: CCHO-60 diet plus Alexis BID for wound-healing Expected Outcomes/Goals: gradual weight loss, controlled T2DM, heeled wounds Plan discussed with: Patient DIEGO BARROW MD Apr 15, 2025 16:14
[2025-04-15] MEDS: VANCOMYCIN HCL 125 MG CAP PO SCH (17:51)
[2025-04-16 01:00] VITALS: BP 125/60; PULSE 60; RESP 17; TEMP 98.3; O2SAT 99
[2025-04-16 05:00] VITALS: BP 112/66; PULSE 81; RESP 18; TEMP 97.9; O2SAT 93
[2025-04-16 08:10] VITALS: PULSE 66; RESP 16; O2SAT 98
[2025-04-16 08:10] LABS: Alanine Aminotransferase 22 U/L (7-40); Albumin 4.5 g/dL (3.2-4.8); Alkaline Phosphatase 66 U/L (46-116); Anion Gap 7 (5-15); Aspartate Aminotransferase 25 U/L (13-40); BUN/Creatinine Ratio 13.8 (10.0-20.0); Bilirubin, Total 0.7 mg/dL (0.2-1.0); Blood Urea Nitrogen 12 mg/dL (9-23); Calcium 10.1 mg/dL (8.7-10.4); Carbon Dioxide 31 mmol/L (20-31); Chloride 105 mmol/L (98-107); Glucose 77 mg/dL (74-106); Potassium 4.5 mmol/L (3.5-5.1); Sodium 143 mmol/L (136-145); Total Protein 7.3 g/dL (5.7-8.2)
[2025-04-16 08:11] LABS: Basophils # (auto) 0.1 10 ^3/uL (0-0.2); Basophils % (auto) 0.9 % (0.0-2.0); Eosinophils # (auto) 0.1 10 ^3/uL (0-0.8); Eosinophils % (auto) 1.8 % (0.0-7.0); Hematocrit 49.5 % (41.0-53.0); Hemoglobin 16.7 g/dL (13.5-17.5); Lymphocytes # (auto) 1.3 10 ^3/uL (0.4-5.4); Lymphocytes % (auto) 23.1 % (10.0-50.0); Mean Corpuscular Hemoglobin 30.4 pg (28.0-32.0); Mean Corpuscular Hgb Conc. 33.6 g/dL (32.0-36.0); Mean Corpuscular Volume 90.5 fL (80.0-100.0); Monocytes % (auto) 17.5 % (0.0-12.0); Neutrophils # (auto) 3.1 10 ^3/uL (1.6-8.6); Neutrophils % (auto) 56.7 % (37.0-80.0); Nucleated Red Blood Cells % 0.4 %; Platelet Count (auto) 172 10^3/uL (140-450); Red Blood Cells 5.47 10^6/uL (4.5-5.90); Red Cell Distribution Width 15.6 % (11.8-14.3); White Blood Cell 5.5 10^3/uL (4.4-10.8)
[2025-04-16 08:30] VITALS: BP 110/57; PULSE 66; RESP 16; TEMP 97; O2SAT 98
[2025-04-16] MEDS ORDERED: VANC125C3 PO (11:36)
--- NOTE | 2025-04-16 11:39 | DVHDS2 ---
Discharge Summary Date of Admission Apr 08, 2025 at 11:41 Date of Discharge: Apr 16, 2025 Labs/Diagnostic Data: Laboratory Results Test 04/16/25 11:04 04/16/25 07:20 04/08/25 09:50 POC Glucose 107 mg/dl (70-106) White Blood Count 5.5 10^3/uL (4.4-10.8) Red Blood Count 5.47 10^6/uL (4.5-5.90) Hemoglobin 16.7 g/dL (13.5-17.5) Hematocrit 49.5 % (41.0-53.0) Mean Corpuscular Volume 90.5 fL (80.0-100.0) Mean Corpuscular Hemoglobin 30.4 pg (28.0-32.0) Mean Corpuscular Hemoglobin Concent 33.6 g/dL (32.0-36.0) Red Cell Distribution Width 15.6 % (11.8-14.3) Platelet Count 172 10^3/uL (140-450) Mean Platelet Volume 7.8 fL (6.9-10.8) Neutrophils (%) (Auto) 56.7 % (37.0-80.0) Lymphocytes (%) (Auto) 23.1 % (10.0-50.0) Monocytes (%) (Auto) 17.5 % (0.0-12.0) Eosinophils (%) (Auto) 1.8 % (0.0-7.0) Basophils (%) (Auto) 0.9 % (0.0-2.0) Neutrophils # (Auto) 3.1 10 ^3/uL (1.6-8.6) Lymphocytes # (Auto) 1.3 10 ^3/uL (0.4-5.4) Monocytes # (Auto) 1.0 10 ^3/uL (0-1.3) Eosinophils # (Auto) 0.1 10 ^3/uL (0-0.8) Basophils # (Auto) 0.1 10 ^3/uL (0-0.2) Nucleated Red Blood Cells 0.4 % Sodium Level 143 mmol/L (136-145) Potassium Level 4.5 mmol/L (3.5-5.1) Chloride Level 105 mmol/L (98-107) Carbon Dioxide Level 31 mmol/L (20-31) Anion Gap 7 (5-15) Blood Urea Nitrogen 12 mg/dL (9-23) Creatinine 0.87 mg/dL (0.700-1.30) Glomerular Filtration Rate Calc 94 mL/min (>90) BUN/Creatinine Ratio 13.8 (10.0-20.0) Serum Glucose 77 mg/dL (74-106) Calcium Level 10.1 mg/dL (8.7-10.4) Magnesium Level 2.0 mg/dL (1.6-2.6) Total Bilirubin 0.7 mg/dL (0.2-1.0) Aspartate Amino Transferase (AST) 25 U/L (13-40) Alanine Aminotransferase (ALT) 22 U/L (7-40) Alkaline Phosphatase 66 U/L (46-116) Total Protein 7.3 g/dL (5.7-8.2) Albumin 4.5 g/dL (3.2-4.8) Urine Color Light-yellow (Yellow) Urine Clarity Clear (Clear) Urine pH 5.0 (5.0-9.0) Urine Specific Lebeau 1.030 (1.001-1.035) Urine Protein Negative (Negative) Urine Ketones Negative (Negative) Urine Blood Trace /uL (Negative) Urine Nitrite Negative (Negative) Urine Bilirubin Negative (Negative) Urine Urobilinogen Normal mg/dL (Negative) Urine Leukocyte Esterase Negative /uL (Negative) Urine RBC 1 /hpf (0 - 3) Urine Microscopic WBC < 1 /HPF (0-3) Urine Squamous Epithelial Cells None seen /hpf (<5) Urine Bacteria None seen /hpf (None Seen) Urine Glucose 4+ mg/dL (Normal) Stool for White Cells None seen Other Laboratory Tests 04/16/25 07:20 Brief Hx & Hospital Course: Final diagnoses: Acute C diff colitis Diarrhea due to the above Hypotension due to the above Acute kidney injury due to vasomotor nephropathy Dehydration Atrial fibrillation, paroxysmal Type 2 diabetes Hypertension Overflow diarrhea Hospital course: 69-year-old male who was admitted for diarrhea that he had for few weeks He was tested for C diff which was positive He was treated with p.o. vancomycin but it was not helping much so he was continued on vancomycin and then he was given Questran and then Lomotil but without much help CT scan of the abdomen was done showed fecal retention and constipation and therefore he was given an enema yesterday which resulted in good amount of a bowel movement Is comfortable Most likely patient had overflow diarrhea due to constipation He is eating well Electrolytes are normal vital signs are normal He is asymptomatic and therefore he will be discharged home today to continue vancomycin for 7 more days and the rest of his home medications and follow up with his primary care physician as soon as possible Condition at Discharge: Stable Final Diagnosis/Problems List Acute C diff colitis Diarrhea due to the above Hypotension due to the above Acute kidney injury due to vasomotor nephropathy Dehydration Atrial fibrillation, paroxysmal Type 2 diabetes Hypertension Discharge Disposition: Home SNF Discharge Will this Physician continue t: No Discharge Statement: "Patient was advised to return to the ER or call 911 if any headaches, dizziness, shortness of breath, chest pain, abdominal pain, bleeding, fevers, or worsening of medical condition. Patient was counseled about treatment plan, medications, possible side effects, patientverbalized understanding. All questions were answered to the best of my ability. This discharge took greater then 30 minutes in planning, reviewing documentation, counseling the patient, and discussing with other team members." ASSESSMENT ASSESSMENT Assessment Date of Service: Apr 16, 2025 Billing Provider: NATALIA HUDSON MD Common Visit Codes: 61231-MKK/OBS DISCH DAY >30min NATALIA HUDSON MD Apr 16, 2025 11:39
[2025-04-16 12:39] VITALS: BP 116/65; PULSE 60; RESP 16; TEMP 97.5; O2SAT 96
== END 2025-04-16 14:55 | disposition home or self-care (01) | DRG 371 ==
LOC: ER 08:20 → OVERFLOW 11:41 → CENTRAL 04-09 11:14
PROVIDERS: ADMIT Internal Medicine Geriatric Medicine; ATTEND Internal Medicine Geriatric Medicine
DX: A04.72 Enterocolitis due to Clostridium difficile, not specified as recurrent (principal); N17.0 Acute kidney failure with tubular necrosis; I10 Essential (primary) hypertension; I25.10 Atherosclerotic heart disease of native coronary artery without angina pectoris; E11.42 Type 2 diabetes mellitus with diabetic polyneuropathy; E11.51 Type 2 diabetes mellitus with diabetic peripheral angiopathy without gangrene; E78.5 Hyperlipidemia, unspecified; I48.0 Paroxysmal atrial fibrillation; E86.0 Dehydration; K56.41 Fecal impaction; I95.89 Other hypotension; Z87.891 Personal history of nicotine dependence; Z95.0 Presence of cardiac pacemaker; Z95.5 Presence of coronary angioplasty implant and graft; Z80.0 Family history of malignant neoplasm of digestive organs; Z80.1 Family history of malignant neoplasm of trachea, bronchus and lung; Z82.49 Family history of ischemic heart disease and other diseases of the circulatory system; Z83.3 Family history of diabetes mellitus; Z79.891 Long term (current) use of opiate analgesic; Z79.1 Long term (current) use of non-steroidal anti-inflammatories (NSAID); Z79.4 Long term (current) use of insulin; Z79.899 Other long term (current) drug therapy
CPT/HCPCS: 36415; 74176; 80048; 80053; 81001; 82962; 83735; 85025; 85048; 87045; 87177; 87427; 87493; 93005; 96360; 96361; G0378; J1815

== ENCOUNTER 2025-04-23 14:18 | Inpatient (IN) | payer OTHER, MEDICAID ==
[~2025-04-23] VITALS: Ht 177.8 cm; Wt 90.6 kg
[~2025-04-23 14:18] MED LIST: ALLO300T2 PO; CLOP75TA70 PO; DAPA5TAB2 PO; ERGO1CAP12 PO; FERR325T20 PO; FINE10TA PO; GABA-1250 PO; HYDR-4072 PO; INSU1INJ19 SC; ISOS1TAB28 PO; MET25T PO; RIVA10TA2 PO; SEMA4INJ SC; SIMV40TA18 PO; TIZA-142 PO
--- NOTE | 2025-04-23 15:24 | ED.PDOC ---
Musculoskeletal HPI Comments nayan: HPI: Poor Historian. Patient is on blood thinners 69-year-old male presents to emergency depart for evaluation of acute on chronic bilateral feet wound. Sent here by his wound care nurse who saw him yesterday and today. Patient is currently on antibiotics finishing his last dose today for recent diagnosis of C difficile. He was hospitalized and discharged approximately a week ago. He is here for evaluation of the wound that his bilateral feet. Final diagnoses: Acute C diff colitis Diarrhea due to the above Hypotension due to the above Acute kidney injury due to vasomotor nephropathy Dehydration Atrial fibrillation, paroxysmal Type 2 diabetes Hypertension Overflow diarrhea Past Medical History: Diabetes, hypertension, hyperlipidemia, C difficile Past Surgical History: Pacemaker, cardiac stent, toe amputation, appendectomy, REVIEW OF SYSTEMS: CONSTITUTIONAL: Denies acute: fever, diaphoresis, chills, generalized weakness. HEAD: Denies acute: headache, photophobia Eyes: Denies acute: Double vision, vision loss, eye pain, eye discharge. EARS: Denies acute: tinnitus, hearing loss, ear discharge, ear pain, THROAT: Denies acute: sore throat, swelling, difficulty swallowing , pain with swallowing, change in voice. NECK: Denies acute: neck pain, neck swelling, stiff neck. HEART: Denies acute : chest pain, palpitations, LUNGS: Denies acute: SOB, wheezing, cough, hemoptysis ABDOMEN: Denies acute: abdominal pain, Nausea, Vomiting, diarrhea, melena , hematemesis, hematochezia SKIN: Denies acute: rash, redness, lesions, itchiness. EXTREMITIES: Denies acute: calf pain, numbness, tingling, weakness, denies pain in extremity. Denies acute: Low back pain. Neuro: Denies acute: focal neurological deficit, motor or sensory focal neurological deficit, tremors, seizure like activity, confusion, dizziness, change in mental status, loss of bowel or bladder function, cauda equina like symptoms. : Denies acute: dysuria, hematuria, flank pain, increase in urinary frequency. PSYCH: Denies acute: hallucination, suicidal ideation, homicidal ideation. FEMALE: Denies acute: abnormal vaginal bleeding, foul odor, unusual discharge. PHYSICAL EXAM: General: ----no----acute distress, awake and alert. Head: normocephalic, atraumatic. Neck: supple, trachea is midline, no swelling. Throat: Normal phonation. Eyes:, no erythema, no purulent discharge, no proptosis, no icterus. Heart: regular rate, regular rhythm, no significant murmur appreciated. Lungs: no apparent respiratory distress, Able to speak in full sentences. No wheezing, no rhonchi, no crackles. No stridors Clear to auscultation bilaterally. Abdomen: non tender to palpation, non distended, soft, no guarding, no rebound, + bowel sounds. Neuro: Awake, Alert, oriented to name, self, situation, follows commands GCS=15. Speech is normal. Skin: no petechia, no purpura, no cyanosis, non-pale, not jaundice. Lower extremities: --no - Pitting edema no deformity, no calf TTP. Evaluation of bilateral feet: Right foot below 3rd toe at the plantar aspect of the foot at the base of the 3rd toe swelling and tenderness to palpation Left foot chronic dried ulcer Patient is neurovascularly intact in bilateral lower extremity. Pedal pulses palpable. Sensory and motor are present. Makes eye contact. moves all four extremities. Face: no apparent facial droop. Ambulating in the ED independently. Pedal pulses are palpable. ED COURSE: DISCLAIMER: This medical document was created using an electronic medical record system with voice recognition software and computerized dictation system. Although this document has been carefully reviewed, there might still be some phonetic and typographical errors. Occasional wrong-word or "sound-alike" substitutions may have occurred due to the inherent limitations of voice recognition software. These areas are purely typographical due to imperfections of the software programs and do not reflect any compromise in the patient's medical care. Please read the chart carefully and recognize, using context, where these substitutions have occurred. Time Seen by MD: 15:15 Primary Care Provider: CASSANDRA Reviewed Notes: Allergies Allergies: Coded Allergies: NO KNOWN ALLERGIES (Unverified , 01/23/17) Home Meds Active Scripts Doxycycline Monohydrate (Doxycycline Monohydrate) 100 Mg Cap, 1 CAP PO BID for 5 Days, #10 CAP 0 Refills Prov:MARIANGEL RIVERS MD 04/30/25 Reported Medications Semaglutide (Ozempic) 4 Mg/3 Ml Inj, 1 MG SC QWEEKLY for 84 Days, #9 04/24/25 Ergocalciferol (Vitamin D) 50,000 Unit Cap, 1 CAP PO QWEEKLY for 84 Days, #12 04/24/25 Hydrocodone-Acetaminophen (Hydrocodone/Acetaminophen 10-325 mg) 1 Tab Tab, 1 TAB PO Q8HR PRN for 30 Days, #90 04/08/25 Clopidogrel Bisulfate (CLOPIDOGREL) 75 Mg Tab, 1 TAB PO DAILY for 90 Days, #90 04/08/25 Ferrous Sulfate (Ferosul) 325 Mg Tab, 1 TAB PO DAILY for 90 Days, #180 04/08/25 Simvastatin (Simvastatin) 40 Mg Tab, 1 TAB PO DAILY for 90 Days, #90 04/08/25 Tizanidine Hydrochloride (Tizanidine Hcl) 4 Mg Tab, 1 TAB PO Q8H for 30 Days, #90 04/08/25 Insulin Glargine (Basaglar Kwikpen) 100 Unit/Ml Inj, 40 UNIT SC DAILY for 75 Days, #30 04/08/25 Allopurinol (Allopurinol) 300 Mg Tab, 1 TAB PO DAILY for 90 Days, #90 04/08/25 Finerenone (Kerendia) 10 Mg Tab, 1 TAB PO DAILY for 90 Days, #90 04/08/25 Dapagliflozin Propanediol (Dapagliflozin Propanediol) 5 Mg Tab, 1 TAB PO DAILY for 90 Days, #90 04/08/25 Isosorbide Mononitrate (Isosorbide Mononitrate Er) 30 Mg Tab, 1 TAB PO DAILY for 90 Days, #90 04/08/25 Gabapentin (Gabapentin) 300 Mg Cap, 1 CAP PO TID for 30 Days, #90 04/08/25 Rivaroxaban (Xarelto Tablet) 10 Mg Tb, 1 TAB PO DAILY for 30 Days, #30 04/08/25 Metoprolol Tartrate (Lopressor) 25 Mg Tb, 0.5 TAB PO BID for 90 Days, #90 04/08/25 Information Source: Patient, Spouse Past Medical History PAST MEDICAL HISTORY: AFIB, CAD, High Lipids, HTN Surgical History: Pacemaker Family History Family History: Reviewed,noncontributory to illness, Unknown Social History Smoker: Non-Smoker Alcohol: Denies ETOH Use Drugs: Denies Drug Use Lives In: Home Was a procedure done? Was a procedure done?: No Differential Diagnosis EXT Differential Diagnosis: Cellulitis, CHF, Deep Vein Thrombosis, Compartment Syndrome, Fracture, Septic (Necrotizing fasciitis, osteomyelitis), Neurovascular injury, Other (Leg swellingDdx include but not limited to DVT, ischemic limb, pitting edema, volume overload, CHF, cellulitis, hematoma, compartment syndrome, dependent edema, venous stasis.) X-Ray, Labs, Meds, VS Vital Signs Date Time Temp Pulse Resp B/P (MAP) Pulse Ox O2 Delivery O2 Flow Rate FiO2 04/23/25 15:09 98.0 62 18 105/51 (69) 95 98.0 Lab Test 04/23/25 15:26 04/23/25 15:15 Range/Units White Blood Count 8.4 4.4-10.8 10^3/uL Red Blood Count 5.46 4.5-5.90 10^6/uL Hemoglobin 16.3 13.5-17.5 g/dL Hematocrit 49.0 41.0-53.0 % Mean Corpuscular Volume 89.7 80.0-100.0 fL Mean Corpuscular Hemoglobin 29.9 28.0-32.0 pg Mean Corpuscular Hemoglobin Concent 33.3 32.0-36.0 g/dL Red Cell Distribution Width 15.6 H 11.8-14.3 % Platelet Count 182 140-450 10^3/uL Mean Platelet Volume 7.6 6.9-10.8 fL Neutrophils (%) (Auto) 65.7 37.0-80.0 % Lymphocytes (%) (Auto) 20.5 10.0-50.0 % Monocytes (%) (Auto) 11.3 0.0-12.0 % Eosinophils (%) (Auto) 1.3 0.0-7.0 % Basophils (%) (Auto) 1.2 0.0-2.0 % Neutrophils # (Auto) 5.5 1.6-8.6 10 ^3/uL Lymphocytes # (Auto) 1.7 0.4-5.4 10 ^3/uL Monocytes # (Auto) 1.0 0-1.3 10 ^3/uL Eosinophils # (Auto) 0.1 0-0.8 10 ^3/uL Basophils # (Auto) 0.1 0-0.2 10 ^3/uL Nucleated Red Blood Cells 0.2 % Erythrocyte Sedimentation Rate 12 0-20 mm/hr Sodium Level 143 136-145 mmol/L Potassium Level 4.5 3.5-5.1 mmol/L Chloride Level 106 98-107 mmol/L Carbon Dioxide Level 30 20-31 mmol/L Anion Gap 7 5-15 Blood Urea Nitrogen 10 9-23 mg/dL Creatinine 1.07 0.700-1.30 mg/dL Glomerular Filtration Rate Calc 76 >90 mL/min BUN/Creatinine Ratio 9.3 L 10.0-20.0 Serum Glucose 109 H 74-106 mg/dL Lactic Acid Level 1.2 0.4-2.0 mmol/L Calcium Level 10.0 8.7-10.4 mg/dL Total Bilirubin 0.6 0.2-1.0 mg/dL Aspartate Amino Transferase (AST) 22 <34 U/L Alanine Aminotransferase (ALT) 27 7-40 U/L Alkaline Phosphatase 66 46-116 U/L C-Reactive Protein High Sensitivity 0.63 <1.0 mg/dL Total Protein 7.0 5.7-8.2 g/dL Albumin 4.3 3.2-4.8 g/dL POC Glucose 112 H 70-106 mg/dl Time of 1ST Reevaluation: 15:45 Reevaluation 1ST: Unchanged Patient Education/Counseling: Diagnosis, Treatment, Prognosis Family Education/Counseling: No Family Present Comments Patient presented with the above HPI.--diabetic foot----workup was initiated. patient was found with the above mentioned diagnosis. the following medications were ordered: please refer to order lists of meds and tests obtained by myself Dr. De La O. Patient ED course and VS have been stabilized. Patient has been reassessed in the ED and remained in a stable condition. Pertinent incidental findings were discussed with the patient and/or family. Patient/family voices understanding and is agreeable with plan. Patient has been observed in the ED adequate length of time to insure improvem ent/stability. Escalation of care considered: Consideration of escalation to observation or admission Patient was ADMITTED to the medicine team for further evaluation and treatment of their presentation. All the reports of any imaging studies that were ordered by myself were reviewed by myself. Departure 1 Departure Time of Disposition: 17:20 Impression: Primary Impression: Diabetic foot ulcer Disposition: 09 ADMITTED INPATIENT Admit to: Tele Condition: Guarded e-Prescriptions Doxycycline Monohydrate (Doxycycline Monohydrate) 100 Mg Cap 1 CAP PO BID for 5 Days, #10 CAP 0 Refills Prov: MARIANGEL RIVERS MD 04/30/25 Discharged With: Self Critical Care Note Critical Care Time?: Yes (35 min-critical care time only) I personally scribed for JENNIFER DE LA O DO ([email or web address]) on 04/23/25 at 15:24. Electronically submitted by Ashish Loredo ([employer]). I personally scribed for JENNIFER DE LA O DO ([email or web address]) on 04/23/25 at 15:27. Electronically submitted by Ashish Loredo ([employer]). JENNIFER DE LA O DO Apr 23, 2025 15:24
[2025-04-23 15:40] LABS: Basophils # (auto) 0.1 10 ^3/uL (0-0.2); Basophils % (auto) 1.2 % (0.0-2.0); Eosinophils # (auto) 0.1 10 ^3/uL (0-0.8); Eosinophils % (auto) 1.3 % (0.0-7.0); Hemoglobin 16.3 g/dL (13.5-17.5); Lymphocytes # (auto) 1.7 10 ^3/uL (0.4-5.4); Lymphocytes % (auto) 20.5 % (10.0-50.0); Mean Corpuscular Hemoglobin 29.9 pg (28.0-32.0); Mean Corpuscular Hgb Conc. 33.3 g/dL (32.0-36.0); Mean Corpuscular Volume 89.7 fL (80.0-100.0); Monocytes % (auto) 11.3 % (0.0-12.0); Neutrophils # (auto) 5.5 10 ^3/uL (1.6-8.6); Neutrophils % (auto) 65.7 % (37.0-80.0); Nucleated Red Blood Cells % 0.2 %; Platelet Count (auto) 182 10^3/uL (140-450); Red Blood Cells 5.46 10^6/uL (4.5-5.90); Red Cell Distribution Width 15.6 % (11.8-14.3); White Blood Cell 8.4 10^3/uL (4.4-10.8)
[2025-04-23 15:53] LABS: Alanine Aminotransferase 27 U/L (7-40); Albumin 4.3 g/dL (3.2-4.8); Alkaline Phosphatase 66 U/L (46-116); Anion Gap 7 (5-15); Aspartate Aminotransferase 22 U/L (<34); BUN/Creatinine Ratio 9.3 (10.0-20.0); Bilirubin, Total 0.6 mg/dL (0.2-1.0); Blood Urea Nitrogen 10 mg/dL (9-23); CRP High Sensitivity 0.63 mg/dL (<1.0); Carbon Dioxide 30 mmol/L (20-31); Chloride 106 mmol/L (98-107); Potassium 4.5 mmol/L (3.5-5.1); Sodium 143 mmol/L (136-145)
[2025-04-23 15:54] LABS: Glucose 109 mg/dL (74-106)
[2025-04-23 16:08] LABS: Erythrocyte Sedimentation Rate 12 mm/hr (0-20)
[2025-04-23] MEDS ORDERED: DEXTROSE (50%) 50ML SYRG IV PRN (19:30)
[2025-04-23] MEDS ORDERED: ACETAMINOPHEN 325 MG TAB PO PRN (19:30)
[2025-04-23] MEDS: PIPERACILLIN-TAZOB 3.375GM 100 ML IV ONE (20:02)
[2025-04-23] MEDS: InsuLIN REG 1unit/0.01ml Soln (100units/ml) SC SCH (22:00)
[2025-04-23] MEDS: METOPROLOL TARTRATE 25 MG TAB PO SCH (22:00)
[2025-04-23] MEDS: ATORVASTATIN 20 MG TAB PO SCH (22:08)
[2025-04-23] MEDS: ACCU-CHEK COMFORT CURVE STRIP VI SCH (22:10)
[2025-04-23] MEDS: CLINDAMYCIN 600MG IV 50 ML IV SCH (23:22)
[2025-04-24 01:00] VITALS: BP 123/69; PULSE 107; RESP 17; TEMP 97.7; O2SAT 96
--- NOTE | 2025-04-24 01:10 | DVHHP2 ---
History of Present Illness Reason for Visit: Foot ulcer History of Present Illness 69-year-old male presents for evaluation of bilateral foot ulcer. The patient reports being seen by a home health agency. He sleeps that the nurse came out to see him today and advised him to present for further evaluation due to wo rsening bilateral foot ulcers. Patient denies fever or chills. Patient reports recently finishing an antibiotic for a C diff infection. Past Medical History Hypertension, diabetes mellitus, dyslipidemia, C diff Past Surgical History PTCA, toe amputation, appendectomy, pacemaker Family History Noncontributory Smoke: No ALCOHOL: none Drugs: None Lives: with Family Review of Systems Review of Systems Review of systems are currently negative otherwise addressed in HPI. Allergies: Coded Allergies: NO KNOWN ALLERGIES (Unverified , 01/23/17) Medications Current Medications Medications Dose Ordered Sig/Baldomero Route Start Time Stop Time Status Last Admin Dose Admin Clindamycin Phosphate 50 ml @ 50 mls/hr Q8HR IV 04/23/25 22:00 04/23/25 23:22 50 MLS/HR Clopidogrel Bisulfate 75 mg DAILY PO 04/24/25 10:00 Allopurinol 300 mg DAILY PO 04/24/25 10:00 Isosorbide Mononitrate 30 mg DAILY PO 04/24/25 10:00 Atorvastatin Calcium 20 mg HS PO 04/23/25 22:00 04/23/25 22:08 20 MG Metoprolol Tartrate 12.5 mg BID PO 04/23/25 22:00 Diagnostic Test (Pha) 1 strip ACHS 04/23/25 22:00 04/23/25 22:10 1 STRIP Insulin Human Regular ACHS SC 04/23/25 22:00 Dextrose 50 ml UD PRN IV 04/23/25 19:30 Acetaminophen/ Hydrocodone Bitart 1 tab Q4HP PRN PO 04/23/25 19:30 Ondansetron HCl 4 mg Q4HP PRN IV 04/23/25 19:30 Acetaminophen 650 mg Q6HP PRN PO 04/23/25 19:30 Rivaroxaban 10 mg DAILY PO 04/24/25 10:00 Exam Vital Signs Vital Signs Date Time Temp Pulse Resp B/P (MAP) Pulse Ox O2 Delivery O2 Flow Rate FiO2 04/23/25 22:14 98.0 70 21 114/55 (74) 95 98.0 Exam Gen: 69-year-old male in mild distress Skin: Warm, dry, normal color and texture, no rash. HEENT: Normocephalic atraumatic, mucous membranes moist and pink. Neck: Cervical and supraclavicular nodes normal without enlargement, trachea is midline, thyroid gland is normal without masses. Pulmonary: Clear to auscultation and percussion bilaterally. Cardiac: Regular rate and rhythm. No murmur Abdomen: Soft, nontender, nondistended, bowel sounds present all 4 quadrants, no guarding, no rigidity, no organomegaly. Extremities: No cyanosis, clubbing, left foot with dried ulcer, right foot with mild cellulitis and tenderness Neuro: Cranial nerves II through XII grossly intact, normal affect and speech, no focal motor deficits. Labs/Xrays Labs Test 04/23/25 22:10 04/23/25 15:26 Range/Units POC Glucose 96 70-106 mg/dl White Blood Count 8.4 4.4-10.8 10^3/uL Red Blood Count 5.46 4.5-5.90 10^6/uL Hemoglobin 16.3 13.5-17.5 g/dL Hematocrit 49.0 41.0-53.0 % Mean Corpuscular Volume 89.7 80.0-100.0 fL Mean Corpuscular Hemoglobin 29.9 28.0-32.0 pg Mean Corpuscular Hemoglobin Concent 33.3 32.0-36.0 g/dL Red Cell Distribution Width 15.6 H 11.8-14.3 % Platelet Count 182 140-450 10^3/uL Mean Platelet Volume 7.6 6.9-10.8 fL Neutrophils (%) (Auto) 65.7 37.0-80.0 % Lymphocytes (%) (Auto) 20.5 10.0-50.0 % Monocytes (%) (Auto) 11.3 0.0-12.0 % Eosinophils (%) (Auto) 1.3 0.0-7.0 % Basophils (%) (Auto) 1.2 0.0-2.0 % Neutrophils # (Auto) 5.5 1.6-8.6 10 ^3/uL Lymphocytes # (Auto) 1.7 0.4-5.4 10 ^3/uL Monocytes # (Auto) 1.0 0-1.3 10 ^3/uL Eosinophils # (Auto) 0.1 0-0.8 10 ^3/uL Basophils # (Auto) 0.1 0-0.2 10 ^3/uL Nucleated Red Blood Cells 0.2 % Erythrocyte Sedimentation Rate 12 0-20 mm/hr Sodium Level 143 136-145 mmol/L Potassium Level 4.5 3.5-5.1 mmol/L Chloride Level 106 98-107 mmol/L Carbon Dioxide Level 30 20-31 mmol/L Anion Gap 7 5-15 Blood Urea Nitrogen 10 9-23 mg/dL Creatinine 1.07 0.700-1.30 mg/dL Glomerular Filtration Rate Calc 76 >90 mL/min BUN/Creatinine Ratio 9.3 L 10.0-20.0 Serum Glucose 109 H 74-106 mg/dL Lactic Acid Level 1.2 0.4-2.0 mmol/L Calcium Level 10.0 8.7-10.4 mg/dL Total Bilirubin 0.6 0.2-1.0 mg/dL Aspartate Amino Transferase (AST) 22 <34 U/L Alanine Aminotransferase (ALT) 27 7-40 U/L Alkaline Phosphatase 66 46-116 U/L C-Reactive Protein High Sensitivity 0.63 <1.0 mg/dL Total Protein 7.0 5.7-8.2 g/dL Albumin 4.3 3.2-4.8 g/dL Assessment/Plan Assessment/Plan Assessment Diabetic foot ulcer Hypertension Diabetes mellitus Recent C diff infection Plan Admit the patient to [facility] to the hospitalist Bilateral foot CT pending Wound consult pending Clindamycin Resume home medications Continue treatment per orders Plan discussed with: Patient My Orders Orders - BIA FISCHER AGACNP Procedure Category Date Status Time * Wound Consult CONS 04/23/25 Transmitted Clindamycin 600mg Iv PHA 04/23/25 In Process (Cleocin Iv) 22:00 Clopidogrel Bisulfate PHA 04/24/25 In Process (Plavix) 10:00 Allopurinol Tablet PHA 04/24/25 In Process (Zyloprim Tablet) 10:00 Isosorbide PHA 04/24/25 In Process Mononitrate Tablet 10:00 Atorvastatin (Lipitor) PHA 04/23/25 In Process 22:00 Metoprolol Tartrate PHA 04/23/25 In Process Tablet (Lopressor Ta 22:00 Basic Metabolic Panel LAB 04/24/25 Logged 04:00 Glucose Blood PHA 04/23/25 In Process (Accu-Chek Comfort 22:00 Insulin R (Human) PHA 04/23/25 In Process (Insulin R) 22:00 Dextrose 50% Syringe PHA 04/23/25 In Process 19:30 Admit ADMIT 04/23/25 Transmitted 19:30 Hydrocodone-Acet PHA 04/23/25 In Process 5/325mg Tab (Meraux 19:30 Ondansetron Hcl PHA 04/23/25 In Process (Zofran) 19:30 Cardiac DIET 04/24/25 Transmitted Diet-2gna,Lofat,Lochol Breakfast Condition: Stable IRENE 04/23/25 In Process 19:30 Acetaminophen Tablet PHA 04/23/25 In Process (Tylenol Tablet) 19:30 Bedrest With Bathroom IRENE 04/23/25 In Process Privileg 19:30 Rivaroxaban Tablet PHA 04/24/25 In Process (Xarelto Tablet) 10:00 Ct R Foot Wo Contrast CT 04/24/25 Logged 01:03 Ct L Foot Wo Contrast CT 04/24/25 Logged 01:03 Date of Service: Apr 24, 2025 Billing Provider: BIA FISCHER Common Visit Codes: [id number] INP/OBS CARE (MOD) BIA FISCHER Apr 24, 2025 01:09
[2025-04-24 05:00] VITALS: BP 109/47; PULSE 87; RESP 17; TEMP 97.7; O2SAT 94
[2025-04-24 06:56] LABS: Chloride 106 mmol/L (98-107); Potassium 4.7 mmol/L (3.5-5.1); Sodium 139 mmol/L (136-145)
[2025-04-24 06:57] LABS: Anion Gap 7 (5-15); Carbon Dioxide 26 mmol/L (20-31)
[2025-04-24 06:59] LABS: Calcium 8.8 mg/dL (8.7-10.4)
[2025-04-24 07:02] LABS: BUN/Creatinine Ratio 9.3 (10.0-20.0)
[2025-04-24 07:09] LABS: Blood Urea Nitrogen 8 mg/dL (9-23); Glucose 71 mg/dL (74-106)
[2025-04-24 08:45] VITALS: BP 132/64; PULSE 72; RESP 20; TEMP 96.8; O2SAT 96
[2025-04-24] MEDS: ISOSORBIDE MONONITRATE ER 60 MG TAB PO SCH (09:59)
[2025-04-24] MEDS: CLOPIDOGREL BISULFATE 75 MG TAB PO SCH (10:00)
[2025-04-24] MEDS: RIVAROXABAN 10 MG TAB PO SCH (10:00)
[2025-04-24] MEDS: ALLOPURINOL 100 MG TAB PO SCH (10:00)
[2025-04-24 10:25] LABS: Hepatitis B Surface Antigen Negative (Negative); Hepatitis C Antibody Negative (Negative)
--- NOTE | 2025-04-24 11:04 | DVH ---
EXAM: CT CT L FOOT WO CONTRAST HISTORY: ulcer COMPARISON: None TECHNIQUE: Noncontrast axial CT images of the left foot were performed. Sagittal and coronal reformat radha images were obtained. This CT exam was performed using one or more of the following dose reductio n techniques: Automated exposure control, adjustment of the mA and/or kv according to patient size, o r the use of iterative reconstruction techniques. Radiation Dose Information: CT Dose: CTDI volume is 7.75 mGy. Dose-length product is 215.78 mGy*cm FINDINGS: No acute fracture or dislocation are identified about the left foot. No significant degenerative harley ges. Chronic appearing destructive changes of the left 5th metatarsal head. Soft tissue swelling abou t the left foot. No focal abscess identified. No soft tissue air. IMPRESSION: 1. Chronic appearing destructive changes of the left 5th metatarsal head. Underlying acute osteomyeli tis cannot be excluded.
--- NOTE | 2025-04-24 12:26 | DVH ---
EXAM: CT CT R FOOT WO CONTRAST HISTORY: ulcer COMPARISON: None TECHNIQUE: Noncontrast axial CT images of the right foot were performed. Sagittal and coronal reforma tted images were obtained. This CT exam was performed using one or more of the following dose reducti on techniques: Automated exposure control, adjustment of the mA and/or kV according to patient size, or use of iterative reconstruction technique. Radiation Dose Information: CT Dose: CTDI volume is 7.7 5 mGy. Dose-length product is 174.11 mGy*cm FINDINGS: There is extensive vascular calcification in the soft tissues. There has been amputation of the great toe. No soft tissue abscess is seen. There are degenerative changes present in the hindfoot and midfoot. There are no areas of cortical destruction or periostitis. No lytic or blastic lesions of bone IMPRESSION: 1. No signs of bony destruction to indicate active osteomyelitis or soft tissue abscess. Nevertheless recommend MRI due to superior contrast resolution in order to rule out osteomyelitis or soft tissue abscess
[2025-04-24 12:41] VITALS: BP 122/64; PULSE 62; RESP 20; TEMP 96.9; O2SAT 94
[2025-04-24 16:23] VITALS: BP 128/68; PULSE 60; RESP 21; TEMP 96.4; O2SAT 96
[2025-04-24 21:00] VITALS: BP 114/57; PULSE 71; RESP 18; TEMP 98; O2SAT 95
[2025-04-25] VITALS (7 sets, daily range): BP systolic 104–127; BP diastolic 52–78; PULSE 63–87; RESP 17–20; TEMP 97.4–98.1; O2SAT 95–99
[2025-04-25] MEDS: cefTRIAXone 1GM/50ML D5W 50 ML IV ONE (14:17)
[2025-04-25] MEDS: ONDANSETRON HCL 4 MG/2 ML VIAL IV PRN (14:56)
--- NOTE | 2025-04-25 16:16 | DVHPN2 ---
Subjective History of Present Illness 69-year-old male presents for evaluation of bilateral foot ulcer. The patient reports being seen by a home health agency. He sleeps that the nurse came out to see him today and advised him to present for further evaluation due to worsening bilateral foot ulcers. Patient denies fever or chills. Patient reports recently finishing an antibiotic for a C diff infection. Past Medical History Hypertension, diabetes mellitus, dyslipidemia, C diff Past Surgical History PTCA, toe amputation, appendectomy, pacemaker Patient continues to have numbness like pain in feet bilaterally. Diabetic foot ulcers present. He denies any nausea abdominal pain fevers chills. Reviewed: H&P Changes from previous H/P or p: No Changes General: Per HPI Objective Vitals Vital Signs Date Time Temp Pulse Resp B/P (MAP) Pulse Ox O2 Delivery O2 Flow Rate FiO2 04/25/25 13:00 97.5 84 20 126/73 (90) 99 97.5 04/25/25 08:10 Room Air* 0 21 Intake/Output Intake and Output 04/25/25 07:00 Intake Total 1810 ml Balance 1810 ml Intake Oral 1660 ml IV Total 150 ml # Voids 11 # Bowel Movements 4 Exam GEN: Healthy appearing, well-developed, NAD. HEENT: NC/AT; MMM. CV: RRR, no m/r/g. LUNGS: CTAB, no w/r/c. ABD: Soft, NT/ND, NBS, no masses or organomegaly. EXT: Bilateral diabetic foot ulcers in lower extremity dorsum of feet bilaterally NEURO: Ambulating with no limitations. No focal deficits. Medications Current Medications Medications Dose Ordered Sig/Baldomero Route Start Time Stop Time Status Last Admin Dose Admin Clopidogrel Bisulfate 75 mg DAILY PO 04/24/25 10:00 04/25/25 09:10 75 MG Allopurinol 300 mg DAILY PO 04/24/25 10:00 04/25/25 09:10 300 MG Isosorbide Mononitrate 30 mg DAILY PO 04/24/25 10:00 04/25/25 09:12 30 MG Atorvastatin Calcium 20 mg HS PO 04/23/25 22:00 04/24/25 22:32 20 MG Metoprolol Tartrate 12.5 mg BID PO 04/23/25 22:00 04/25/25 09:13 12.5 MG Diagnostic Test (Pha) 1 strip ACHS 04/23/25 22:00 04/25/25 11:17 1 STRIP Insulin Human Regular ACHS SC 04/23/25 22:00 04/24/25 22:34 2 UNITS Dextrose 50 ml UD PRN IV 04/23/25 19:30 Acetaminophen/ Hydrocodone Bitart 1 tab Q4HP PRN PO 04/23/25 19:30 Ondansetron HCl 4 mg Q4HP PRN IV 04/23/25 19:30 04/25/25 14:56 4 MG Acetaminophen 650 mg Q6HP PRN PO 04/23/25 19:30 Rivaroxaban 10 mg DAILY PO 04/24/25 10:00 04/25/25 09:10 10 MG Mupirocin 1 applic BID EACHNOSTRI 04/25/25 22:00 04/30/25 21:59 UNV Clindamycin Phosphate 50 ml @ 50 mls/hr Q8HR IV 04/25/25 22:00 UNV Laboratory Results Laboratory Tests 04/23/25 15:26 04/24/25 05:35 HgA1c, TSH Test 04/25/25 12:00 Hemoglobin A1c 6.1 % A1C (<5.7) H Microbiology Microbiology Date/Time Source Procedure Growth Status 04/24/25 22:40 Nose MRSA Screen - Final Methicillin Resistant S.aureus Complete 04/24/25 09:23 Stool Clostridium difficile Toxin Assay - Final Complete Labs and/or images reviewed: Labs reviewed by me, Image(s) reviewed by me Assessment/Plan Assessment/Plan 04/25 patient has feet wrap bilaterally wound Care on board patient has diabetic foot ulcers bilateral they are wrapped. Patient is vehemently asking for eval by director internal communications. Apparently patient has diabetic ulcers have been somewhat chronic and not improving. He has podiatry appointment 7-8 months away which he can not further tolerate. On admission patient CT bilateral foot showed concerns for 5th metatarsal possible bony degradation on left, right was less concerning. Patient was started on clindamycin and tried to down escalate to ceftriaxone to avoid C diff exposure but patient has nausea once starting see ceftriaxone. We will avoid clindamycin given patient had recent C diff infection. and consult Podiatry. We will try get MRI for feet bilaterally Cardiology we will help clear for MRI given patient has pacemaker. diagnosis: Diabetic foot ulcer bilateral with acute infection Rule out osteomyelitis Hypertension Diabetes Recent C diff infection. - ciprofloxacin/doxy -Podiatry consult -MRI feet bilateral -Continue home medications -Sliding scale insulin mild a.c. HS -Wound care consult Diet diabetic DVT prophylaxis heparin subQ GI prophylaxis GI PPI daily IV Med surge Full code Plan discussed with: Patient My Orders Orders - MARIANGEL RIVERS MD Procedure Category Date Status Time Mri L Foot Wo Contrast MRI 04/25/25 Logged 11:39 Mupirocin 2% Oint PHA 04/25/25 Logged Mrsa Nares (Bactroban 22:00 Mri R Foot Wo Contrast MRI 04/25/25 Logged 15:00 *Podiatry Consult CONS 04/25/25 Transmitted Musson(Dvmg) 15:00 Clindamycin 600mg Iv PHA 04/25/25 Logged (Cleocin Iv) 22:00 Date of Service: Apr 25, 2025 Billing Provider: MARIANGEL RIVERS MD Common Visit Codes: [id number] INP/OBS CARE(HIGH) MARIANGEL RIVERS MD Apr 25, 2025 16:16
[2025-04-25] MEDS: CLINDAMYCIN 600MG IV 50 ML IV SCH (22:06)
[2025-04-25] MEDS: MUPIROCIN 2% OINT 15gm or 22gm FOR MRSA NARES EACHNOSTRI SCH (22:06)
[2025-04-26 01:00] VITALS: BP 110/65; PULSE 91; RESP 18; TEMP 97.5; O2SAT 96
[2025-04-26 05:00] VITALS: BP 117/61; PULSE 84; RESP 19; TEMP 97.6; O2SAT 94
[2025-04-26 06:25] LABS: Basophils # (auto) 0.1 10 ^3/uL (0-0.2); Basophils % (auto) 0.9 % (0.0-2.0); Eosinophils # (auto) 0.1 10 ^3/uL (0-0.8); Eosinophils % (auto) 2.1 % (0.0-7.0); Hematocrit 49.9 % (41.0-53.0); Hemoglobin 17.2 g/dL (13.5-17.5); Lymphocytes # (auto) 1.3 10 ^3/uL (0.4-5.4); Lymphocytes % (auto) 20.1 % (10.0-50.0); Mean Corpuscular Hemoglobin 30.9 pg (28.0-32.0); Mean Corpuscular Hgb Conc. 34.4 g/dL (32.0-36.0); Mean Corpuscular Volume 89.7 fL (80.0-100.0); Monocytes # (auto) 0.9 10 ^3/uL (0-1.3); Monocytes % (auto) 13.5 % (0.0-12.0); Neutrophils # (auto) 4.2 10 ^3/uL (1.6-8.6); Neutrophils % (auto) 63.4 % (37.0-80.0); Nucleated Red Blood Cells % 0.4 %; Platelet Count (auto) 167 10^3/uL (140-450); Red Blood Cells 5.57 10^6/uL (4.5-5.90); Red Cell Distribution Width 15.6 % (11.8-14.3); White Blood Cell 6.6 10^3/uL (4.4-10.8)
[2025-04-26 09:00] VITALS: BP 116/57; PULSE 60; RESP 18; TEMP 97.8; O2SAT 96
[2025-04-26] MEDS ORDERED: cefTRIAXone 1GM/50ML D5W 50 ML IV SCH (09:00)
--- NOTE | 2025-04-26 12:08 | DVH ---
CLINICAL HISTORY: Infection. Rule out osteomyelitis. TECHNIQUE: Multi sequence multi planar MRI images of the left foot were obtained without IV contrast . COMPARISON: CT CT L FOOT WO CONTRAST on DOS: 04/24/25 FINDINGS: Motion artifact limits evaluation. There is chronic deformity of the distal aspect of the 5th metatarsal, may be sequelae of prior surgery and/or erosive changes. There is adjacent wound of t he lateral plantar aspect of the foot. There is no evidence for osteomyelitis. No organized fluid co llection identified to suggest abscess. Marked fatty atrophy of the intrinsic musculature of the hind foot and forefoot. Visualized tendons appear intact. Mild tenosynovitis of the flexor hallucis longus tendon along its plantar course to the level of the knot of [place]. IMPRESSION: 1. No evidence for osteomyelitis. 2. Chronic deformity of the distal aspect of the 5th metatarsal. 3. Additional findings as described above.
[2025-04-26] MEDS: DOXYCYCLINE 100MG/100ML 100 ML IV SCH (12:40)
[2025-04-26 13:00] VITALS: BP 104/50; PULSE 62; RESP 16; TEMP 98.2; O2SAT 93
--- NOTE | 2025-04-26 16:00 | DVH ---
EXAM: MRI MRI R FOOT WO CONTRAST INDICATION: R foot ulcer. r/o osteomyelitis TECHNIQUE: Multiplanar and multisequence MR imaging of the right ankle was performed in the absence o f gadolinium contrast. COMPARISON: CT CT R FOOT WO CONTRAST on DOS: 04/24/25 FINDINGS: MEDIAL ANKLE: Intact posterior tibialis, flexor hallucis longus, and flexor digitorum tendons. Intact deltoid ligament. Intact spring ligament complex. LOW LATERAL ANKLE: Intact anterior talofibular, posterior talofibular, and calcaneofibular ligaments. Intact peroneal brevis and longus tendons without tenosynovitis. HIGH LATERAL ANKLE: Intact anterior and posterior inferior tibiofibular ligaments. ANTERIOR ANKLE: Intact anterior tibialis, extensor digitorum longus, and extensor hallucis longus ten dons. POSTERIOR ANKLE: No tibiotalar or subtalar joint effusion. Normal sinus Tarsi. Normal plantar fascia. Normal Achilles tendon. No retrocalcaneal bursitis. MIDFOOT: Normal. FOREFOOT: In regards to the clinical question, no MR evidence of osteomyelitis. Overlying plantar pr esumed blister measuring 11 mm BONES: No acute fracture, osseous contusion, or aggressive osseous lesion. Status post prior distal a mputation of the 2nd digit. MUSCLES: Normal. NEUROVASCULAR: Normal tarsal tunnel OTHER: None IMPRESSION: 1. In regards to the clinical question, no MR evidence of osteomyelitis. Overlying plantar presumed blister measuring 11 mm. 2. Status post prior distal amputation of the 2nd digit.
--- NOTE | 2025-04-26 16:08 | DVHPN2 ---
Subjective History of Present Illness 69-year-old male presents for evaluation of bilateral foot ulcer. The patient reports being seen by a home health agency. He sleeps that the nurse came out to see him today and advised him to present for further evaluation due to worsening bilateral foot ulcers. Patient denies fever or chills. Patient reports recently finishing an antibiotic for a C diff infection. Past Medical History Hypertension, diabetes mellitus, dyslipidemia, C diff Past Surgical History PTCA, toe amputation, appendectomy, pacemaker Patient continues to have numbness like pain in feet bilaterally. Diabetic foot ulcers present. He denies any nausea abdominal pain fevers chills. Reviewed: H&P Changes from previous H/P or p: No Changes General: Per HPI Objective Vitals Vital Signs Date Time Temp Pulse Resp B/P (MAP) Pulse Ox O2 Delivery O2 Flow Rate FiO2 04/26/25 13:00 98.2 62 16 104/50 (68) 93 98.2 04/26/25 07:45 Room Air* 0 21 Intake/Output Intake and Output 04/26/25 07:00 Intake Total 2110 ml Output Total 1050 ml Balance 1060 ml Intake Oral 1975 ml IV Total 135 ml Output Urine Total 1050 ml # Voids 4 # Bowel Movements 2 Exam GEN: Healthy appearing, well-developed, NAD. HEENT: NC/AT; MMM. CV: RRR, no m/r/g. LUNGS: CTAB, no w/r/c. ABD: Soft, NT/ND, NBS, no masses or organomegaly. EXT: Bilateral diabetic foot ulcers in lower extremity dorsum of feet bilaterally NEURO: Ambulating with no limitations. No focal deficits. Medications Current Medications Medications Dose Ordered Sig/Baldomero Route Start Time Stop Time Status Last Admin Dose Admin Clopidogrel Bisulfate 75 mg DAILY PO 04/24/25 10:00 04/26/25 09:54 75 MG Allopurinol 300 mg DAILY PO 04/24/25 10:00 04/26/25 09:54 300 MG Isosorbide Mononitrate 30 mg DAILY PO 04/24/25 10:00 04/26/25 09:56 30 MG Atorvastatin Calcium 20 mg HS PO 04/23/25 22:00 04/25/25 22:07 20 MG Metoprolol Tartrate 12.5 mg BID PO 04/23/25 22:00 04/25/25 09:13 12.5 MG Diagnostic Test (Pha) 1 strip ACHS 04/23/25 22:00 04/26/25 11:46 1 STRIP Insulin Human Regular ACHS SC 04/23/25 22:00 04/25/25 16:24 2 UNITS Dextrose 50 ml UD PRN IV 04/23/25 19:30 Acetaminophen/ Hydrocodone Bitart 1 tab Q4HP PRN PO 04/23/25 19:30 Ondansetron HCl 4 mg Q4HP PRN IV 04/23/25 19:30 04/25/25 14:56 4 MG Acetaminophen 650 mg Q6HP PRN PO 04/23/25 19:30 Rivaroxaban 10 mg DAILY PO 04/24/25 10:00 04/26/25 09:54 10 MG Mupirocin 1 applic BID EACHNOSTRI 04/25/25 22:00 04/30/25 21:59 04/26/25 09:58 1 APPLIC Doxycycline Hyclate 100 ml @ 50 mls/hr Q12H IV 04/26/25 10:00 04/26/25 12:40 50 MLS/HR Laboratory Results Laboratory Tests 04/24/25 05:35 04/26/25 05:50 Microbiology Microbiology Date/Time Source Procedure Growth Status 04/24/25 22:40 Nose MRSA Screen - Final Methicillin Resistant S.aureus Complete 04/24/25 09:23 Stool Clostridium difficile Toxin Assay - Final Complete Labs and/or images reviewed: Labs reviewed by me, Image(s) reviewed by me Assessment/Plan Assessment/Plan 04/25 patient has feet wrap bilaterally wound Care on board patient has diabetic foot ulcers bilateral they are wrapped. Patient is vehemently asking for eval by podiatric physician. Apparently patient has diabetic ulcers have been somewhat chronic and not improving. He has podiatry appointment 7-8 months away which he can not further tolerate. On admission patient CT bilateral foot showed concerns for 5th metatarsal possible bony degradation on left, right was less concerning. Patient was started on clindamycin and tried to down escalate to ceftriaxone to avoid C diff exposure but patient has nausea once starting see ceftriaxone. We will avoid clindamycin given patient had recent C diff infection. and consult Podiatry. We will try get MRI for feet bilaterally Cardiology we will help clear for MRI given patient has pacemaker. 04/26- MRI today bilateral foot. Pending Podiatry evaluation. Wound Care following. Labs stable. ESR CRP stable. Continue IV antibiotics. If negative for osteomyelitis patient can likely be discharge tomorrow over the weekend with oral antibiotics and close follow up with Podiatry outpatient. Patient is on doxy IV. Avoiding Cipro and clinda due to patient having history of C diff infection. Patient try ceftriaxone but developed? Nausea/vomit, thus we are avoiding. Continue doxycycline. Pending MRI reads. diagnosis: Diabetic foot ulcer bilateral with acute infection Rule out osteomyelitis Hypertension Diabetes Recent C diff infection. - doxy -Podiatry consult -MRI feet bilateral -Continue home medications -Sliding scale insulin mild a.c. HS -Wound care consult Diet diabetic DVT prophylaxis heparin subQ GI prophylaxis GI PPI daily IV Med surge Full code Plan discussed with: Patient My Orders Orders - MARIANGEL RIVERS MD Procedure Category Date Status Time Doxycycline PHA 04/26/25 In Process 100mg/100ml 10:00 Date of Service: Apr 26, 2025 Billing Provider: MARIANGEL RIVERS MD Common Visit Codes: [id number] INP/OBS CARE(HIGH) MARIANGEL RIVERS MD Apr 26, 2025 16:08
[2025-04-26 17:00] VITALS: BP 112/53; PULSE 60; RESP 16; TEMP 98; O2SAT 95
[2025-04-26 21:00] VITALS: BP_SYST 104; BP_SYST 99; BP_DIAS 44; BP_DIAS 53; PULSE 62; RESP 17; TEMP 98.1; O2SAT 95
[2025-04-26] MEDS: HYDROcodone-ACET 5/325MG TAB PO PRN (22:03)
[2025-04-27 01:00] VITALS: BP 94/52; PULSE 65; RESP 17; TEMP 98.1; O2SAT 91
[2025-04-27 05:00] VITALS: BP 113/55; PULSE 90; RESP 17; TEMP 97.8; O2SAT 95
[2025-04-27 08:09] LABS: Basophils # (auto) 0.1 10 ^3/uL (0-0.2); Eosinophils # (auto) 0.2 10 ^3/uL (0-0.8); Eosinophils % (auto) 3.1 % (0.0-7.0); Hematocrit 50.5 % (41.0-53.0); Lymphocytes # (auto) 1.2 10 ^3/uL (0.4-5.4); Mean Corpuscular Hemoglobin 30.3 pg (28.0-32.0); Mean Corpuscular Hgb Conc. 33.7 g/dL (32.0-36.0); Monocytes # (auto) 0.8 10 ^3/uL (0-1.3); Monocytes % (auto) 11.6 % (0.0-12.0); Neutrophils # (auto) 4.6 10 ^3/uL (1.6-8.6); Neutrophils % (auto) 67.3 % (37.0-80.0); Nucleated Red Blood Cells % 0.4 %; Platelet Count (auto) 178 10^3/uL (140-450); Red Blood Cells 5.61 10^6/uL (4.5-5.90); Red Cell Distribution Width 15.4 % (11.8-14.3); White Blood Cell 6.9 10^3/uL (4.4-10.8)
[2025-04-27 09:00] VITALS: BP 126/57; PULSE 68; RESP 18; TEMP 98; O2SAT 97
[2025-04-27 13:00] VITALS: BP 103/63; PULSE 64; RESP 18; TEMP 97.9; O2SAT 99
--- NOTE | 2025-04-27 14:15 | DVHPN2 ---
Subjective The patient is seen and examined at bedside. Complain of bilateral leg pain due to the ulcer. No fever or chill. Reviewed: Care Plan, H&P, Labs, Medications, Previous Orders Changes from previous H/P or p: No Changes General: Per HPI Objective Vitals Vital Signs Date Time Temp Pulse Resp B/P (MAP) Pulse Ox O2 Delivery O2 Flow Rate FiO2 04/27/25 09:40 68 126/57 04/27/25 09:00 98.0 18 97 98.0 04/26/25 20:00 Room Air* 0 21 Intake/Output Intake and Output 04/27/25 07:00 Intake Total 2490 ml Output Total 100 ml Balance 2390 ml Intake Oral 2290 ml IV Total 200 ml Output Urine Total 100 ml # Voids 6 # Bowel Movements 3 General Appearance: Alert, Oriented X3, Cooperative, No acute distress HEENT: Atraumatic, PERRLA, EOMI, Mucous membr. moist/pink Neck: Supple Lungs: Clear to auscultation, Normal air movement Cardiovascular: Regular rate, Normal S1, Normal S2, No murmurs, Gallops, Rubs Abdomen: Normal bowel sounds, Soft, No tenderness Neuro: Cranial nerves 3-12 NL Psych/Mental Status: Mental status NL Medications Current Medications Medications Dose Ordered Sig/Baldomero Route Start Time Stop Time Status Last Admin Dose Admin Clopidogrel Bisulfate 75 mg DAILY PO 04/24/25 10:00 04/27/25 09:19 75 MG Allopurinol 300 mg DAILY PO 04/24/25 10:00 04/27/25 09:19 300 MG Isosorbide Mononitrate 30 mg DAILY PO 04/24/25 10:00 04/27/25 09:37 30 MG Atorvastatin Calcium 20 mg HS PO 04/23/25 22:00 04/26/25 22:02 20 MG Metoprolol Tartrate 12.5 mg BID PO 04/23/25 22:00 04/27/25 09:40 12.5 MG Diagnostic Test (Pha) 1 strip ACHS 04/23/25 22:00 04/27/25 11:38 1 STRIP Insulin Human Regular ACHS SC 04/23/25 22:00 04/27/25 11:37 2 UNITS Dextrose 50 ml UD PRN IV 04/23/25 19:30 Acetaminophen/ Hydrocodone Bitart 1 tab Q4HP PRN PO 04/23/25 19:30 04/26/25 22:03 1 TAB Ondansetron HCl 4 mg Q4HP PRN IV 04/23/25 19:30 04/25/25 14:56 4 MG Acetaminophen 650 mg Q6HP PRN PO 04/23/25 19:30 Rivaroxaban 10 mg DAILY PO 04/24/25 10:00 04/27/25 09:19 10 MG Mupirocin 1 applic BID EACHNOSTRI 04/25/25 22:00 04/30/25 21:59 04/27/25 09:17 1 APPLIC Doxycycline Hyclate 100 ml @ 50 mls/hr Q12H IV 04/26/25 10:00 04/27/25 09:18 50 MLS/HR Laboratory Results Laboratory Tests 04/24/25 05:35 04/27/25 07:31 Microbiology Microbiology Date/Time Source Procedure Growth Status 04/24/25 22:40 Nose MRSA Screen - Final Methicillin Resistant S.aureus Complete 04/24/25 09:23 Stool Clostridium difficile Toxin Assay - Final Complete Labs and/or images reviewed: Labs reviewed by me Assessment/Plan Assessment/Plan Diabetic nonhealing bilateral foot ulcer , MRI showed no osteomyelitis Hypertension Diabetes mellitus Recent C diff infection Continuing current management. Continuing with IV antibiotic. 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 Although this document has been carefully reviewed, there may still be some phonetic and typographical errors. These areas are purely typographical due to imperfections of the software programs, and do not reflect any compromise in the patient's medical care. Plan discussed with: Patient Date of Service: Apr 27, 2025 Billing Provider: PETER MAHAN MD Common Visit Codes: [id number] INP/OBS CARE(HIGH) PETER MAHAN MD Apr 27, 2025 14:15
[2025-04-27 17:00] VITALS: BP 105/58; PULSE 61; RESP 18; TEMP 98; O2SAT 97
[2025-04-27 21:00] VITALS: BP 124/53; PULSE 61; RESP 16; TEMP 98.7; O2SAT 96
[2025-04-28 01:00] VITALS: BP 129/61; PULSE 65; RESP 18; TEMP 97.7; O2SAT 98
[2025-04-28 05:00] VITALS: BP 133/64; PULSE 70; RESP 18; TEMP 97.8; O2SAT 96
[2025-04-28 09:00] VITALS: BP 126/54; PULSE 60; RESP 16; TEMP 97.6; O2SAT 96
[2025-04-28 13:00] VITALS: BP 110/52; PULSE 60; RESP 15; TEMP 97.8; O2SAT 96
[2025-04-28 17:00] VITALS: BP 129/67; PULSE 81; RESP 16; TEMP 97.7; O2SAT 98
[2025-04-28 21:00] VITALS: BP 112/54; PULSE 68; RESP 14; TEMP 97.5; O2SAT 97
[2025-04-29] VITALS (7 sets, daily range): BP systolic 96–138; BP diastolic 52–80; PULSE 60–81; RESP 16–20; TEMP 96.2–98.6; O2SAT 95–97
--- NOTE | 2025-04-29 08:01 | DVHPN2 ---
Subjective The patient is seen and examined at bedside. Complain of leg pain. Reviewed: Care Plan, H&P, Labs, Medications, Previous Orders, Radiology Changes from previous H/P or p: No Changes General: Per HPI Objective Vitals Vital Signs Date Time Temp Pulse Resp B/P (MAP) Pulse Ox O2 Delivery O2 Flow Rate FiO2 04/29/25 05:00 97.3 81 17 130/74 (92) 96 97.3 04/28/25 20:00 Room Air* 0 21 Intake/Output Intake and Output 04/29/25 07:00 Intake Total 1650 ml Output Total 1600 ml Balance 50 ml Intake Oral 1550 ml IV Total 100 ml Output Urine Total 1600 ml # Voids 7 # Bowel Movements 4 General Appearance: Alert, Oriented X3, Cooperative, No acute distress HEENT: Atraumatic, PERRLA, EOMI, Mucous membr. moist/pink Neck: Supple Lungs: Clear to auscultation, Normal air movement Cardiovascular: Regular rate, Normal S1, Normal S2, No murmurs, Gallops, Rubs Abdomen: Normal bowel sounds, Soft, No tenderness Extremities: Other (Bilateral nonhealing ulcer) Neuro: Cranial nerves 3-12 NL Psych/Mental Status: Mental status NL Medications Current Medications Medications Dose Ordered Sig/Baldomero Route Start Time Stop Time Status Last Admin Dose Admin Clopidogrel Bisulfate 75 mg DAILY PO 04/24/25 10:00 04/28/25 10:45 75 MG Allopurinol 300 mg DAILY PO 04/24/25 10:00 04/28/25 10:45 300 MG Isosorbide Mononitrate 30 mg DAILY PO 04/24/25 10:00 04/28/25 10:45 30 MG Atorvastatin Calcium 20 mg HS PO 04/23/25 22:00 04/28/25 21:45 20 MG Metoprolol Tartrate 12.5 mg BID PO 04/23/25 22:00 04/28/25 21:44 12.5 MG Diagnostic Test (Pha) 1 strip ACHS 04/23/25 22:00 04/29/25 06:16 1 STRIP Insulin Human Regular ACHS SC 04/23/25 22:00 04/28/25 21:34 4 UNITS Dextrose 50 ml UD PRN IV 04/23/25 19:30 Acetaminophen/ Hydrocodone Bitart 1 tab Q4HP PRN PO 04/23/25 19:30 04/28/25 21:42 1 TAB Ondansetron HCl 4 mg Q4HP PRN IV 04/23/25 19:30 04/25/25 14:56 4 MG Acetaminophen 650 mg Q6HP PRN PO 04/23/25 19:30 Rivaroxaban 10 mg DAILY PO 04/24/25 10:00 04/28/25 10:45 10 MG Mupirocin 1 applic BID EACHNOSTRI 04/25/25 22:00 04/30/25 21:59 04/28/25 21:45 1 APPLIC Doxycycline Hyclate 100 ml @ 50 mls/hr Q12H IV 04/26/25 10:00 04/28/25 22:40 50 MLS/HR Laboratory Results Laboratory Tests 04/24/25 05:35 04/27/25 07:31 Microbiology Microbiology Date/Time Source Procedure Growth Status 04/24/25 22:40 Nose MRSA Screen - Final Methicillin Resistant S.aureus Complete 04/24/25 09:23 Stool Clostridium difficile Toxin Assay - Final Complete Labs and/or images reviewed: Labs reviewed by me Assessment/Plan Assessment/Plan Diabetic nonhealing bilateral foot ulcer , MRI showed no osteomyelitis Hypertension Diabetes mellitus Recent C diff infection The patient complain of diarrhea today Continuing current management. Continuing with IV antibiotic. 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 Although this document has been carefully reviewed, there may still be some phonetic and typographical errors. These areas are purely typographical due to imperfections of the software programs, and do not reflect any compromise in the patient's medical care. Plan discussed with: Patient Date of Service: Apr 28, 2025 Billing Provider: PETER MAHAN MD Common Visit Codes: [id number] INP/OBS CARE(HIGH) PETER MAHAN MD Apr 29, 2025 08:01
--- NOTE | 2025-04-29 14:01 | DVHINCON2 ---
Date Seen: Apr 29, 2025 Reason for Consultation Bilateral foot wound History of Present Illness 69-year-old male presents for evaluation of bilateral foot ulcer. The patient reports being seen by a home health agency. He sleeps that the nurse came out to see him today and advised him to present for further evaluation due to worsening bilateral foot ulcers. Patient denies fever or chills. Patient reports recently finishing an antibiotic for a C diff infection. Past Medical History See H&P Past Surgical History See H&P Family History: FH: colon cancer FH: diabetes mellitus FH: lung cancer FH: myocardial infarction Allergies: Coded Allergies: NO KNOWN ALLERGIES (Unverified , 01/23/17) Home Meds Reported Medications Semaglutide (Ozempic) 4 Mg/3 Ml Inj, 1 MG SC QWEEKLY for 84 Days, #9 04/24/25 Ergocalciferol (Vitamin D) 50,000 Unit Cap, 1 CAP PO QWEEKLY for 84 Days, #12 25 Hydrocodone-Acetaminophen (Hydrocodone/Acetaminophen 10-325 mg) 1 Tab Tab, 1 TAB PO Q8HR PRN for 30 Days, #90 625 Clopidogrel Bisulfate (CLOPIDOGREL) 75 Mg Tab, 1 TAB PO DAILY for 90 Days, #90 625 Ferrous Sulfate (Ferosul) 325 Mg Tab, 1 TAB PO DAILY for 90 Days, #180 625 Simvastatin (Simvastatin) 40 Mg Tab, 1 TAB PO DAILY for 90 Days, #90 625 Tizanidine Hydrochloride (Tizanidine Hcl) 4 Mg Tab, 1 TAB PO Q8H for 30 Days, #90 625 Insulin Glargine (Basaglar Kwikpen) 100 Unit/Ml Inj, 40 UNIT SC DAILY for 75 Days, #30 625 Allopurinol (Allopurinol) 300 Mg Tab, 1 TAB PO DAILY for 90 Days, #90 625 Finerenone (Kerendia) 10 Mg Tab, 1 TAB PO DAILY for 90 Days, #90 625 Dapagliflozin Propanediol (Dapagliflozin Propanediol) 5 Mg Tab, 1 TAB PO DAILY for 90 Days, #90 625 Isosorbide Mononitrate (Isosorbide Mononitrate Er) 30 Mg Tab, 1 TAB PO DAILY for 90 Days, #90 6/2/25 Gabapentin (Gabapentin) 300 Mg Cap, 1 CAP PO TID for 30 Days, #04/08/25 Rivaroxaban (Xarelto Tablet) 10 Mg Tb, 1 TAB PO DAILY for 30 Days, #30 04/08/25 Metoprolol Tartrate (Lopressor) 25 Mg Tb, 0.5 TAB PO BID for 90 Days, #90 04/08/25 Vital Signs Vital Signs Date Time Temp Pulse Resp B/P (MAP) Pulse Ox O2 Delivery O2 Flow Rate FiO2 04/29/25 11:20 61 105/64 04/29/25 09:00 96.2 20 97 96.2 04/29/25 08:00 Room Air* 0 21 Physical Exam Dermatological: Skin is dry with mild erythema and some maceration around the wound site No gross deformities noted Mild non-pitting edema present bilaterally Right foot forefoot wound with purulent drainage Left foot heel wound with dry heme Vascular: Dorsalis pedis and posterior tibial pulses are 1+ bilaterally Capillary refill is under 2 seconds Skin temperature is warm bilaterally Neurologic: Protective sensation is absent on the plantar forefoot bilaterally Monofilament testing reveals decreased sensation in multiple plantar sites Musculoskeletal: Range of motion at the ankle and MTP joints is within normal limits. Strength is 5/5 in all tested muscle groups. Gait is antalgic due to offloading of the affected limb. Labs/Diagnostic Data Labs Test 04/29/25 11:16 04/27/25 07:31 04/25/25 12:00 04/24/25 05:35 Range/Units POC Glucose 153 H 70-106 mg/dl White Blood Count 6.9 4.4-10.8 10^3/uL Red Blood Count 5.61 4.5-5.90 10^6/uL Hemoglobin 17.0 13.5-17.5 g/dL Hematocrit 50.5 41.0-53.0 % Mean Corpuscular Volume 90.0 80.0-100.0 fL Mean Corpuscular Hemoglobin 30.3 28.0-32.0 pg Mean Corpuscular Hemoglobin Concent 33.7 32.0-36.0 g/dL Red Cell Distribution Width 15.4 H 11.8-14.3 % Platelet Count 178 140-450 10^3/uL Mean Platelet Volume 7.8 6.9-10.8 fL Neutrophils (%) (Auto) 67.3 37.0-80.0 % Lymphocytes (%) (Auto) 17.0 10.0-50.0 % Monocytes (%) (Auto) 11.6 0.0-12.0 % Eosinophils (%) (Auto) 3.1 0.0-7.0 % Basophils (%) (Auto) 1.0 0.0-2.0 % Neutrophils # (Auto) 4.6 1.6-8.6 10 ^3/uL Lymphocytes # (Auto) 1.2 0.4-5.4 10 ^3/uL Monocytes # (Auto) 0.8 0-1.3 10 ^3/uL Eosinophils # (Auto) 0.2 0-0.8 10 ^3/uL Basophils # (Auto) 0.1 0-0.2 10 ^3/uL Nucleated Red Blood Cells 0.4 % Hemoglobin A1c 6.1 H <5.7 % A1C Sodium Level 139 136-145 mmol/L Potassium Level 4.7 3.5-5.1 mmol/L Chloride Level 106 98-107 mmol/L Carbon Dioxide Level 26 20-31 mmol/L Anion Gap 7 5-15 Blood Urea Nitrogen 8 L 9-23 mg/dL Creatinine 0.86 0.700-1.30 mg/dL Glomerular Filtration Rate Calc 94 >90 mL/min BUN/Creatinine Ratio 9.3 L 10.0-20.0 Serum Glucose 71 L 74-106 mg/dL Calcium Level 8.8 8.7-10.4 mg/dL Hepatitis B Surface Antigen Negative Negative Hepatitis C Antibody Negative Negative Test 04/23/25 15:26 Range/Units Erythrocyte Sedimentation Rate 12 0-20 mm/hr Lactic Acid Level 1.2 0.4-2.0 mmol/L Total Bilirubin 0.6 0.2-1.0 mg/dL Aspartate Amino Transferase (AST) 22 <34 U/L Alanine Aminotransferase (ALT) 27 7-40 U/L Alkaline Phosphatase 66 46-116 U/L C-Reactive Protein High Sensitivity 0.63 <1.0 mg/dL Total Protein 7.0 5.7-8.2 g/dL Albumin 4.3 3.2-4.8 g/dL Microbiology Date/Time Source Procedure Growth Status 04/29/25 06:39 Stool Stool Culture - Preliminary Resulted 04/29/25 06:39 Stool Shiga Toxin I & II - Final Resulted 04/24/25 22:40 Nose MRSA Screen - Final Methicillin Resistant S.aureus Complete Problems(with codes): (1) Gastroenteritis (2) Diabetic foot ulcer Plan/Recommendation ASSESSMENT: Patient is a 69 year old seen on the floor for a worsening ulcer PLAN: - The patients chart was reviewed, clinical findings were discussed with the patient, the etiologies of the conditions were discussed in detail, and a treatment plan was agreed to at this time, with both oral and written instructions provided. - reviewed advanced imaging - discussed plan is to perform an incision and drainage of the bilateral foot - patient will be NPO at midnight - take him to the OR tomorrow - we will get cultures in the OR - can weightbear as tolerated in postoperative shoe All questions were answered and concerns addressed to the patient's satisfaction. The patient was given the phone number to the clinic and was told how to make contact with the clinic should any concerns or questions arise. Patient understands that if any questions or concerns arise prior to the next appointment, we should be contacted immediately. FOLLOW-UP: Continue to follow while inpatient Plan discussed with: Patient Date of Service: Apr 29, 2025 Billing Provider: COLTON VARGAS DPM Common Visit Codes: CONSULT ONLY Consultation Codes: [id number] CONSULT <80MIN COLTON VARGAS DPM Apr 29, 2025 14:01
--- NOTE | 2025-04-29 16:13 | DVHPN2 ---
Subjective History of Present Illness 69-year-old male presents for evaluation of bilateral foot ulcer. The patient reports being seen by a home health agency. He sleeps that the nurse came out to see him today and advised him to present for further evaluation due to worsening bilateral foot ulcers. Patient denies fever or chills. Patient reports recently finishing an antibiotic for a C diff infection. Past Medical History Hypertension, diabetes mellitus, dyslipidemia, C diff Past Surgical History PTCA, toe amputation, appendectomy, pacemaker Patient continues to have numbness like pain in feet bilaterally. Diabetic foot ulcers present. He denies any nausea abdominal pain fevers chills. Reviewed: Care Plan, H&P, Labs, Medications, Previous Orders Changes from previous H/P or p: No Changes General: Per HPI Objective Vitals Vital Signs Date Time Temp Pulse Resp B/P (MAP) Pulse Ox O2 Delivery O2 Flow Rate FiO2 04/29/25 13:00 96.9 60 18 102/58 (73) 97 96.9 04/29/25 08:00 Room Air* 0 21 Intake/Output Intake and Output 04/29/25 07:00 Intake Total 1650 ml Output Total 1600 ml Balance 50 ml Intake Oral 1550 ml IV Total 100 ml Output Urine Total 1600 ml # Voids 7 # Bowel Movements 4 Exam GEN: Healthy appearing, well-developed, NAD. HEENT: NC/AT; MMM. CV: RRR, no m/r/g. LUNGS: CTAB, no w/r/c. ABD: Soft, NT/ND, NBS, no masses or organomegaly. EXT: Bilateral diabetic foot ulcers in lower extremity dorsum of feet bilaterally NEURO: Ambulating with no limitations. No focal deficits. General Appearance: Alert, Oriented X3, Cooperative, No acute distress HEENT: Atraumatic, PERRLA, EOMI, Mucous membr. moist/pink Neck: Supple Lungs: Clear to auscultation, Normal air movement Cardiovascular: Regular rate, Normal S1, Normal S2, No murmurs, Gallops, Rubs Abdomen: Normal bowel sounds, Soft, No tenderness Extremities: Other (Bilateral nonhealing ulcer) Neuro: Cranial nerves 3-12 NL Psych/Mental Status: Mental status NL Medications Current Medications Medications Dose Ordered Sig/Baldomero Route Start Time Stop Time Status Last Admin Dose Admin Clopidogrel Bisulfate 75 mg DAILY PO 04/24/25 10:00 04/29/25 10:18 75 MG Allopurinol 300 mg DAILY PO 04/24/25 10:00 04/29/25 10:20 300 MG Isosorbide Mononitrate 30 mg DAILY PO 04/24/25 10:00 04/29/25 10:19 30 MG Atorvastatin Calcium 20 mg HS PO 04/23/25 22:00 04/28/25 21:45 20 MG Metoprolol Tartrate 12.5 mg BID PO 04/23/25 22:00 04/29/25 10:20 12.5 MG Diagnostic Test (Pha) 1 strip ACHS 04/23/25 22:00 04/29/25 11:54 1 STRIP Insulin Human Regular ACHS SC 04/23/25 22:00 04/29/25 11:51 2 UNITS Dextrose 50 ml UD PRN IV 04/23/25 19:30 Acetaminophen/ Hydrocodone Bitart 1 tab Q4HP PRN PO 04/23/25 19:30 04/29/25 10:20 1 TAB Ondansetron HCl 4 mg Q4HP PRN IV 04/23/25 19:30 04/25/25 14:56 4 MG Acetaminophen 650 mg Q6HP PRN PO 04/23/25 19:30 Rivaroxaban 10 mg DAILY PO 04/24/25 10:00 04/29/25 10:18 10 MG Mupirocin 1 applic BID EACHNOSTRI 04/25/25 22:00 04/30/25 21:59 04/29/25 10:17 1 APPLIC Doxycycline Hyclate 100 ml @ 50 mls/hr Q12H IV 04/26/25 10:00 04/29/25 10:18 50 MLS/HR Laboratory Results Laboratory Tests 04/24/25 05:35 04/27/25 07:31 Microbiology Microbiology Date/Time Source Procedure Growth Status 04/29/25 06:39 Stool Stool Culture - Preliminary Resulted 04/29/25 06:39 Stool Shiga Toxin I & II - Final Resulted 04/24/25 22:40 Nose MRSA Screen - Final Methicillin Resistant S.aureus Complete Labs and/or images reviewed: Labs reviewed by me, Image(s) reviewed by me Assessment/Plan Assessment/Plan 04/25 patient has feet wrap bilaterally wound Care on board patient has diabetic foot ulcers bilateral they are wrapped. Patient is vehemently asking for eval by water quality specialist. Apparently patient has diabetic ulcers have been somewhat chronic and not improving. He has podiatry appointment 7-8 months away which he can not further tolerate. On admission patient CT bilateral foot showed concerns for 5th metatarsal possible bony degradation on left, right was less concerning. Patient was started on clindamycin and tried to down escalate to ceftriaxone to avoid C diff exposure but patient has nausea once starting see ceftriaxone. We will avoid clindamycin given patient had recent C diff infection. and consult Podiatry. We will try get MRI for feet bilaterally Cardiology we will help clear for MRI given patient has pacemaker. 04/26- MRI today bilateral foot. Pending Podiatry evaluation. Wound Care following. Labs stable. ESR CRP stable. Continue IV antibiotics. If negative for osteomyelitis patient can likely be discharge tomorrow over the weekend with oral antibiotics and close follow up with Podiatry outpatient. Patient is on doxy IV. Avoiding Cipro and clinda due to patient having history of C diff infection. Patient try ceftriaxone but developed? Nausea/vomit, thus we are avoiding. Continue doxycycline. Pending MRI reads. 04/27-- MRI results are back with no osteomyelitis of either foot. Patient continues to receive IV antibiotics and improving. Patient has MRSA nares in is being given Bactroban bilateral nares daily. Weekend physician has concern for C diff and has ordered stool cultures. 04/29- podiatry consult for patient today. Dietary wants to get intra op cultures tomorrow. NPO midnight. Continue IV antibiotics. Stool cultures Which are thus far negative. No concern for diarrhea diagnosis: Diabetic foot ulcer bilateral with acute worsening infection Ruled out osteomyelitis Hypertension Diabetes Recent C diff infection MRSA nares colonization - doxy continue -Podiatry consult - done -MRI feet bilateral - done -Continue home medications -Sliding scale insulin mild a.c. HS -Wound care consult- contuine Diet diabetic (NPO MN 04/29/25) DVT prophylaxis heparin subQ GI prophylaxis GI PPI daily IV Med surge Full code Plan discussed with: Patient Date of Service: Apr 29, 2025 Billing Provider: MARIANGEL RIVERS MD Common Visit Codes: [id number] INP/OBS CARE(HIGH) MARIANGEL RIVERS MD Apr 29, 2025 16:13
[2025-04-30] VITALS (8 sets, daily range): BP systolic 107–143; BP diastolic 55–78; PULSE 58–80; RESP 16–20; TEMP 97.7–98.3; O2SAT 96–99
[2025-04-30 05:43] LABS: Basophils # (auto) 0.1 10 ^3/uL (0-0.2); Basophils % (auto) 0.9 % (0.0-2.0); Eosinophils # (auto) 0.2 10 ^3/uL (0-0.8); Eosinophils % (auto) 3.3 % (0.0-7.0); Hematocrit 47.6 % (41.0-53.0); Lymphocytes # (auto) 1.6 10 ^3/uL (0.4-5.4); Lymphocytes % (auto) 22.8 % (10.0-50.0); Mean Corpuscular Hemoglobin 30.2 pg (28.0-32.0); Mean Corpuscular Hgb Conc. 33.7 g/dL (32.0-36.0); Mean Corpuscular Volume 89.4 fL (80.0-100.0); Monocytes # (auto) 1.2 10 ^3/uL (0-1.3); Monocytes % (auto) 17.6 % (0.0-12.0); Neutrophils # (auto) 3.9 10 ^3/uL (1.6-8.6); Neutrophils % (auto) 55.4 % (37.0-80.0); Nucleated Red Blood Cells % 0.4 %; Platelet Count (auto) 163 10^3/uL (140-450); Red Blood Cells 5.32 10^6/uL (4.5-5.90)
[2025-04-30 06:04] LABS: Alanine Aminotransferase 21 U/L (7-40); Albumin 3.9 g/dL (3.2-4.8); Alkaline Phosphatase 59 U/L (46-116); Anion Gap 8 (5-15); Aspartate Aminotransferase 25 U/L (<34); BUN/Creatinine Ratio 23.4 (10.0-20.0); Blood Urea Nitrogen 22 mg/dL (9-23); Carbon Dioxide 28 mmol/L (20-31); Chloride 105 mmol/L (98-107); Glucose 92 mg/dL (74-106); Potassium 4.5 mmol/L (3.5-5.1); Sodium 141 mmol/L (136-145); Total Protein 6.5 g/dL (5.7-8.2)
[2025-04-30 06:05] LABS: Bilirubin, Total 0.6 mg/dL (0.2-1.0)
[2025-04-30 06:40] LABS: INR 1.23 (0.9-1.15); Prothrombin Time 12.8 sec (9.3-11.8)
[2025-04-30] MEDS: ceFAZolin 2 GM/D5W50ml 50 ML IV ONE (11:49)
--- NOTE | 2025-04-30 11:52 | DVHPN2 ---
Subjective History of Present Illness 69-year-old male presents for evaluation of bilateral foot ulcer. The patient reports being seen by a home health agency. He sleeps that the nurse came out to see him today and advised him to present for further evaluation due to worsening bilateral foot ulcers. Patient denies fever or chills. Patient reports recently finishing an antibiotic for a C diff infection. Past Medical History Hypertension, diabetes mellitus, dyslipidemia, C diff Past Surgical History PTCA, toe amputation, appendectomy, pacemaker Patient continues to have numbness like pain in feet bilaterally. Diabetic foot ulcers present. He denies any nausea abdominal pain fevers chills. Reviewed: Care Plan, H&P, Labs, Medications, Previous Orders Changes from previous H/P or p: No Changes General: Per HPI Objective Vitals Vital Signs Date Time Temp Pulse Resp B/P (MAP) Pulse Ox O2 Delivery O2 Flow Rate FiO2 04/30/25 09:00 97.7 58 18 140/78 (98) 98 97.7 04/30/25 08:00 Room Air* 0 21 Intake/Output Intake and Output 04/30/25 07:00 Intake Total 1320 ml Output Total 700 ml Balance 620 ml Intake Oral 1120 ml IV Total 200 ml Output Urine Total 700 ml # Voids 7 # Bowel Movements 4 Exam GEN: Healthy appearing, well-developed, NAD. HEENT: NC/AT; MMM. CV: RRR, no m/r/g. LUNGS: CTAB, no w/r/c. ABD: Soft, NT/ND, NBS, no masses or organomegaly. EXT: Bilateral diabetic foot ulcers in lower extremity dorsum of feet bilaterally NEURO: Ambulating with no limitations. No focal deficits. General Appearance: Alert, Oriented X3, Cooperative, No acute distress HEENT: Atraumatic, PERRLA, EOMI, Mucous membr. moist/pink Neck: Supple Lungs: Clear to auscultation, Normal air movement Cardiovascular: Regular rate, Normal S1, Normal S2, No murmurs, Gallops, Rubs Abdomen: Normal bowel sounds, Soft, No tenderness Extremities: Other (Bilateral nonhealing ulcer) Neuro: Cranial nerves 3-12 NL Psych/Mental Status: Mental status NL Medications Current Medications Medications Dose Ordered Sig/Baldomero Route Start Time Stop Time Status Last Admin Dose Admin Clopidogrel Bisulfate 75 mg DAILY PO 04/24/25 10:00 04/29/25 10:18 75 MG Allopurinol 300 mg DAILY PO 04/24/25 10:00 04/29/25 10:20 300 MG Isosorbide Mononitrate 30 mg DAILY PO 04/24/25 10:00 04/29/25 10:19 30 MG Atorvastatin Calcium 20 mg HS PO 04/23/25 22:00 04/29/25 21:38 20 MG Metoprolol Tartrate 12.5 mg BID PO 04/23/25 22:00 04/29/25 21:44 12.5 MG Diagnostic Test (Pha) 1 strip ACHS 04/23/25 22:00 04/30/25 06:20 1 STRIP Insulin Human Regular ACHS SC 04/23/25 22:00 04/29/25 21:52 4 UNITS Dextrose 50 ml UD PRN IV 04/23/25 19:30 Acetaminophen/ Hydrocodone Bitart 1 tab Q4HP PRN PO 04/23/25 19:30 04/29/25 21:45 1 TAB Ondansetron HCl 4 mg Q4HP PRN IV 04/23/25 19:30 04/25/25 14:56 4 MG Acetaminophen 650 mg Q6HP PRN PO 04/23/25 19:30 Rivaroxaban 10 mg DAILY PO 04/24/25 10:00 04/29/25 10:18 10 MG Mupirocin 1 applic BID EACHNOSTRI 04/25/25 22:00 04/30/25 21:59 04/29/25 21:38 1 APPLIC Doxycycline Hyclate 100 ml @ 50 mls/hr Q12H IV 04/26/25 10:00 04/29/25 21:38 50 MLS/HR Laboratory Results Laboratory Tests 04/30/25 05:02 Chemistry Test 04/30/25 05:02 Albumin 3.9 g/dL (3.2-4.8) Calcium Level 9.0 mg/dL (8.7-10.4) Total Protein 6.5 g/dL (5.7-8.2) Coagulation Test 04/30/25 05:02 Prothrombin Time 12.8 sec (9.3-11.8) H Prothrombin Time INR 1.23 (0.9-1.15) H LFT Test 04/30/25 05:02 Alanine Aminotransferase (ALT) 21 U/L (7-40) Alkaline Phosphatase 59 U/L (46-116) Aspartate Amino Transferase (AST) 25 U/L (<34) Total Bilirubin 0.6 mg/dL (0.2-1.0) Microbiology Microbiology Date/Time Source Procedure Growth Status 04/29/25 06:39 Stool Stool Culture - Preliminary Resulted 04/29/25 06:39 Stool Shiga Toxin I & II - Final Resulted 04/24/25 22:40 Nose MRSA Screen - Final Methicillin Resistant S.aureus Complete Labs and/or images reviewed: Labs reviewed by me, Image(s) reviewed by me Assessment/Plan Assessment/Plan 04/25 patient has feet wrap bilaterally wound Care on board patient has diabetic foot ulcers bilateral they are wrapped. Patient is vehemently asking for eval by user experience team lead. Apparently patient has diabetic ulcers have been somewhat chronic and not improving. He has podiatry appointment 7-8 months away which he can not further tolerate. On admission patient CT bilateral foot showed concerns for 5th metatarsal possible bony degradation on left, right was less concerning. Patient was started on clindamycin and tried to down escalate to ceftriaxone to avoid C diff exposure but patient has nausea once starting see ceftriaxone. We will avoid clindamycin given patient had recent C diff infection. and consult Podiatry. We will try get MRI for feet bilaterally Cardiology we will help clear for MRI given patient has pacemaker. 04/26- MRI today bilateral foot. Pending Podiatry evaluation. Wound Care following. Labs stable. ESR CRP stable. Continue IV antibiotics. If negative for osteomyelitis patient can likely be discharge tomorrow over the weekend with oral antibiotics and close follow up with Podiatry outpatient. Patient is on doxy IV. Avoiding Cipro and clinda due to patient having history of C diff infection. Patient try ceftriaxone but developed? Nausea/vomit, thus we are avoiding. Continue doxycycline. Pending MRI reads. 04/27-- MRI results are back with no osteomyelitis of either foot. Patient continues to receive IV antibiotics and improving. Patient has MRSA nares in is being given Bactroban bilateral nares daily. Weekend physician has concern for C diff and has ordered stool cultures. 04/29- podiatry consult for patient today. Dietary wants to get intra op cultures tomorrow. NPO midnight. Continue IV antibiotics. Stool cultures Which are thus far negative. No concern for diarrhea 04/30 podiatry plans to take patient to OR today for wound samples for culture. Possible DC thereafter pending further Podiatry recommendations. patient s/p OR has significant bleed staining all wound with blood R>L. will repeat admission today and repeat CBC tomorrow AM. Otherwise podiatry sign off and ok with discharge, as podiatry plans to follow-up outpatient for ongoing care and f/u on intraoperative cultures. possible dc tomorow once bleeding controlled. diagnosis: Diabetic foot ulcer bilateral with acute worsening infection Ruled out osteomyelitis Hypertension Diabetes Recent C diff infection MRSA nares colonization inpatient plan: - doxy continue -Podiatry consult - done . s/p OR intraop cultures on 04/30/25. -MRI feet bilateral - done -Continue home medications -Sliding scale insulin mild a.c. HS -Wound care consult- contuine tentative discharge plan: - doxycycline 100mg twice daily for 5 days. - continue use of diabetic shoes - homehealth for wound care and medication management aid. dressings changed every other day with Betadine-soaked gauze, Kerlix, Marco - followup with Dr vences in podiatry clinic to review hospitalization and follow-up on wounds and follow-up on intraoperative wound cultures - continue other home medications not mentioned above. - follow-up with primary provider to review discharge. - follow-up with DC clinic to check-up on wound. Diet diabetic (NPO [place] 04/29/25) DVT prophylaxis heparin subQ GI prophylaxis GI PPI daily IV Med surge Full code Plan discussed with: Patient Date of Service: Apr 30, 2025 Billing Provider: MARIANGEL RIVERS MD Common Visit Codes: [id number] INP/OBS CARE(HIGH) MARIANGEL RIVERS MD Apr 30, 2025 11:52
[2025-04-30] MEDS: BUPIVACAINE 0.5% P/F INJ 10 ML VIAL ONE ×2 (12:39→13:15)
[2025-04-30] MEDS ORDERED: MIDAZOLAM HCL 2MG/2ML 2ml VIAL (1mg/ml) ONE (13:05)
[2025-04-30] MEDS ORDERED: KETAMINE 50mg/ML 1ml syringe ONE (13:05)
--- NOTE | 2025-04-30 13:05 | DVHPN2 ---
Subjective 69-year-old male presents for evaluation of bilateral foot ulcer. The patient reports being seen by a home health agency. He sleeps that the nurse came out to see him today and advised him to present for further evaluation due to worsening bilateral foot ulcers. Patient denies fever or chills. Patient reports recently finishing an antibiotic for a C diff infection. Reviewed: Care Plan, H&P, Labs, Medications, Previous Orders Changes from previous H/P or p: No Changes General: Per HPI Objective Vitals Vital Signs Date Time Temp Pulse Resp B/P (MAP) Pulse Ox O2 Delivery O2 Flow Rate FiO2 04/30/25 09:00 97.7 58 18 140/78 (98) 98 97.7 04/30/25 08:00 Room Air* 0 21 Intake/Output Intake and Output 04/30/25 07:00 Intake Total 1320 ml Output Total 700 ml Balance 620 ml Intake Oral 1120 ml IV Total 200 ml Output Urine Total 700 ml # Voids 7 # Bowel Movements 4 Exam Dermatological: Skin is dry with mild erythema and some maceration around the wound site No gross deformities noted Mild non-pitting edema present bilaterally Right foot forefoot wound with purulent drainage Left foot heel wound with dry heme Vascular: Dorsalis pedis and posterior tibial pulses are 1+ bilaterally Capillary refill is under 2 seconds Skin temperature is warm bilaterally Neurologic: Protective sensation is absent on the plantar forefoot bilaterally Monofilament testing reveals decreased sensation in multiple plantar sites Musculoskeletal: Range of motion at the ankle and MTP joints is within normal limits. Strength is 5/5 in all tested muscle groups. Gait is antalgic due to offloading of the affected limb. General Appearance: Alert, Oriented X3, Cooperative, No acute distress HEENT: Atraumatic, PERRLA, EOMI, Mucous membr. moist/pink Neck: Supple Lungs: Clear to auscultation, Normal air movement Cardiovascular: Regular rate, Normal S1, Normal S2, No murmurs, Gallops, Rubs Abdomen: Normal bowel sounds, Soft, No tenderness Extremities: Other (Bilateral nonhealing ulcer) Neuro: Cranial nerves 3-12 NL Psych/Mental Status: Mental status NL Medications Current Medications Medications Dose Ordered Sig/Baldomero Route Start Time Stop Time Status Last Admin Dose Admin Clopidogrel Bisulfate 75 mg DAILY PO 04/24/25 10:00 04/29/25 10:18 75 MG Allopurinol 300 mg DAILY PO 04/24/25 10:00 04/29/25 10:20 300 MG Isosorbide Mononitrate 30 mg DAILY PO 04/24/25 10:00 04/29/25 10:19 30 MG Atorvastatin Calcium 20 mg HS PO 04/23/25 22:00 04/29/25 21:38 20 MG Metoprolol Tartrate 12.5 mg BID PO 04/23/25 22:00 04/29/25 21:44 12.5 MG Diagnostic Test (Pha) 1 strip ACHS 04/23/25 22:00 04/30/25 12:07 1 STRIP Insulin Human Regular ACHS SC 04/23/25 22:00 04/29/25 21:52 4 UNITS Dextrose 50 ml UD PRN IV 04/23/25 19:30 Acetaminophen/ Hydrocodone Bitart 1 tab Q4HP PRN PO 04/23/25 19:30 04/29/25 21:45 1 TAB Ondansetron HCl 4 mg Q4HP PRN IV 04/23/25 19:30 04/25/25 14:56 4 MG Acetaminophen 650 mg Q6HP PRN PO 04/23/25 19:30 Rivaroxaban 10 mg DAILY PO 04/24/25 10:00 04/29/25 10:18 10 MG Mupirocin 1 applic BID EACHNOSTRI 04/25/25 22:00 04/30/25 21:59 04/30/25 12:07 1 APPLIC Doxycycline Hyclate 100 ml @ 50 mls/hr Q12H IV 04/26/25 10:00 04/29/25 21:38 50 MLS/HR Laboratory Results Laboratory Tests 04/30/25 05:02 Chemistry Test 04/30/25 05:02 Albumin 3.9 g/dL (3.2-4.8) Calcium Level 9.0 mg/dL (8.7-10.4) Total Protein 6.5 g/dL (5.7-8.2) Coagulation Test 04/30/25 05:02 Prothrombin Time 12.8 sec (9.3-11.8) H Prothrombin Time INR 1.23 (0.9-1.15) H LFT Test 04/30/25 05:02 Alanine Aminotransferase (ALT) 21 U/L (7-40) Alkaline Phosphatase 59 U/L (46-116) Aspartate Amino Transferase (AST) 25 U/L (<34) Total Bilirubin 0.6 mg/dL (0.2-1.0) Microbiology Microbiology Date/Time Source Procedure Growth Status 04/29/25 06:39 Stool Stool Culture - Preliminary Resulted 04/29/25 06:39 Stool Shiga Toxin I & II - Final Resulted 04/24/25 22:40 Nose MRSA Screen - Final Methicillin Resistant S.aureus Complete Assessment/Plan Assessment/Plan ASSESSMENT: Patient is a 61 year old seen on the floor for a worsening ulcer PLAN: - The patients chart was reviewed, clinical findings were discussed with the patient, the etiologies of the conditions were discussed in detail, and a treatment plan was agreed to at this time, with both oral and written instructions provided. - reviewed advanced imaging - discussed plan is to perform an incision and drainage - patient has been NPO since midnight - take him to the OR today - we will get cultures in the OR - can weightbear as tolerated in postoperative shoe All questions were answered and concerns addressed to the patient's satisfaction. The patient was given the phone number to the clinic and was told how to make contact with the clinic should any concerns or questions arise. Patient understands that if any questions or concerns arise prior to the next appointment, we should be contacted immediately. FOLLOW-UP: Continue to follow while inpatient Plan discussed with: Patient My Orders Orders - COLTON VARGAS DPM Procedure Category Date Status Time Npo (Nothing By DIET 04/30/25 Transmitted Mouth) Diet Breakfast Obtain Consent For: ORDERS 04/29/25 Transmitted 14:01 Problem List: (1) Diabetic foot ulcer (2) Gastroenteritis Date of Service: Apr 30, 2025 Billing Provider: COLTON VARGAS DPM Common Visit Codes: [id number] INP/OBS CARE(HIGH) COLTON VARGAS DPM Apr 30, 2025 13:05
[2025-04-30] MEDS ORDERED: LIDOCAINE 2% (LOCAL ANESTH.) PF 5ml SDV ONE (13:07)
[2025-04-30] MEDS ORDERED: GLYCOPYRROLATE 0.2 MG/ML 1ML VIAL ONE (13:07)
[2025-04-30] MEDS ORDERED: PROPOFOL 10 MG/ML 20 ML IV ONE (13:07)
[2025-04-30] MEDS ORDERED: ONDANSETRON HCL 4 MG/2 ML VIAL ONE (13:07)
[2025-04-30] MEDS ORDERED: ceFAZolin 1GM VL ONE (13:09)
--- NOTE | 2025-04-30 13:27 | DVHOP2 ---
Operative Report - 2 Report Details Date: 04/30/25 Preop Diagnosis: 1. Bilateral foot abscess 2. Bilateral foot cellulitis 3. Bilateral foot diabetic ulcer Postop Diagnosis: Same as preop Surgeon: Colton Vargas MD Anesthesiologist: See anesthesia Anesthesia: Mac Consent: The patient was informed of the risks and benefits of the procedure. These include but are not limited to complications of anesthesia, postoperative infection, incomplete relief of symptoms, recurrence of symptoms, damage to blood vessels, nerves and tendons, deep venous thrombosis, pulmonary embolism and possible need for repeat surgery in the future. Complications: None Estimated Blood Loss: Minimal Fluids: See anesthesia Findings: Consistent with diagnosis Indications for Surgery: Worsening foot wounds Name of Procedure Performed 1. Right foot I&D (13991) 2. Left foot I&D (04431) Procedure Details Procedure Details: PRE-PROCEDURE INFORMATION: In the pre-op holding area, the extremity to be operated on was clearly marked and the patient verified correct laterality of the marking. The patient was transferred to the OR table and placed in a supine position. A timeout was performed in which identification of the correct patient, procedure, location, and materials was done. The bilateral foot and leg were prepped and draped in normal sterile fashion. DESCRIPTION OF PROCEDURE: Attention was directed to the right foot where area of fluctuance was noted. An incision was made over this area and was deepened through blunt dissection. The incision was deepened to the level of abscess and bone. Care was taken to the dissection to avoid any neurovascular and tendinous structures. The incision was deepened to abscess appeared to be purulent fluid consistent with pus. TAfter the abscess was drained, the area was irrigated with 3 L normal saline using cysto tubing. Deep cultures were then obtained from the wound. The area was then inspected and any areas of tracking, especially along the tendons were also drained. The wound was packed with Betadine-soaked gauze and we will need to be closed at a later date. Attention was directed to the left foot where area of fluctuance was noted. An incision was made over this area and was deepened through blunt dissection. The incision was deepened to the level of abscess and bone. Care was taken to the dissection to avoid any neurovascular and tendinous structures. The incision was deepened to abscess appeared to be purulent fluid consistent with pus. TAfter the abscess was drained, the area was irrigated with 3 L normal saline using cysto tubing. Deep cultures were then obtained from the wound. The area was then inspected and any areas of tracking, especially along the tendons were also drained. The wound was packed with Betadine-soaked gauze and we will need to be closed at a later date. POSTOPERATIVE INFORMATION: The patient tolerated the above noted procedure and anesthesia well and was transferred to the PACU with vital signs stable, and vascular status intact with capillary refill intact to all digits. Deep cultures were taken. Recommend that patient goes home on p.o. antibiotics. Patient can weightbear as tolerated in a postoperative shoe. Patient had dressings changed every other day with Betadine-soaked gauze, Kerlix, Marco. Patient can be discharged home on oral antibiotics once medically stable. Condition Good Disposition Still a Patient COLTON VARGAS DPM Apr 30, 2025 13:27
[2025-04-30] MEDS: ACCU-CHEK COMFORT CURVE STRIP VI ONE (13:30)
[2025-04-30] MEDS: ONDANSETRON HCL 4 MG/2 ML VIAL IV ONE (13:45)
[2025-04-30] MEDS ORDERED: HYDROmorphone HCL 2 MG/ML VL/or syr IV PRN (13:45)
[2025-04-30] MEDS ORDERED: DOXY1CAP57 PO (15:33)
[2025-05-01 05:00] VITALS: BP 122/61; PULSE 69; RESP 18; TEMP 97.8; O2SAT 95
[2025-05-01 05:50] LABS: Basophils # (auto) 0.1 10 ^3/uL (0-0.2); Basophils % (auto) 1.1 % (0.0-2.0); Eosinophils # (auto) 0.2 10 ^3/uL (0-0.8); Eosinophils % (auto) 3.1 % (0.0-7.0); Hematocrit 51.7 % (41.0-53.0); Hemoglobin 17.5 g/dL (13.5-17.5); Lymphocytes # (auto) 1.7 10 ^3/uL (0.4-5.4); Lymphocytes % (auto) 23.4 % (10.0-50.0); Mean Corpuscular Hemoglobin 30.1 pg (28.0-32.0); Mean Corpuscular Hgb Conc. 33.8 g/dL (32.0-36.0); Mean Corpuscular Volume 89.2 fL (80.0-100.0); Monocytes % (auto) 14.7 % (0.0-12.0); Neutrophils # (auto) 4.1 10 ^3/uL (1.6-8.6); Neutrophils % (auto) 57.7 % (37.0-80.0); Nucleated Red Blood Cells % 0.7 %; Platelet Count (auto) 155 10^3/uL (140-450); Red Blood Cells 5.79 10^6/uL (4.5-5.90); Red Cell Distribution Width 15.8 % (11.8-14.3); White Blood Cell 7.1 10^3/uL (4.4-10.8)
[2025-05-01 08:00] VITALS: PULSE 67; RESP 20; O2SAT 97
[2025-05-01 09:07] VITALS: BP 128/69; PULSE 67; RESP 20; TEMP 97.6; O2SAT 97
[2025-05-01 13:04] VITALS: BP 128/64; PULSE 64; RESP 18; TEMP 97.8; O2SAT 96
--- NOTE | 2025-05-01 16:38 | DVHDS2 ---
Discharge Summary Date of Admission Apr 23, 2025 at 19:30 Date of Discharge: May 01, 2025 Labs/Diagnostic Data: Laboratory Results Test 05/01/25 11:03 05/01/25 05:18 04/30/25 05:02 04/25/25 12:00 POC Glucose 205 mg/dl (70-106) White Blood Count 7.1 10^3/uL (4.4-10.8) Red Blood Count 5.79 10^6/uL (4.5-5.90) Hemoglobin 17.5 g/dL (13.5-17.5) Hematocrit 51.7 % (41.0-53.0) Mean Corpuscular Volume 89.2 fL (80.0-100.0) Mean Corpuscular Hemoglobin 30.1 pg (28.0-32.0) Mean Corpuscular Hemoglobin Concent 33.8 g/dL (32.0-36.0) Red Cell Distribution Width 15.8 % (11.8-14.3) Platelet Count 155 10^3/uL (140-450) Mean Platelet Volume 7.8 fL (6.9-10.8) Neutrophils (%) (Auto) 57.7 % (37.0-80.0) Lymphocytes (%) (Auto) 23.4 % (10.0-50.0) Monocytes (%) (Auto) 14.7 % (0.0-12.0) Eosinophils (%) (Auto) 3.1 % (0.0-7.0) Basophils (%) (Auto) 1.1 % (0.0-2.0) Neutrophils # (Auto) 4.1 10 ^3/uL (1.6-8.6) Lymphocytes # (Auto) 1.7 10 ^3/uL (0.4-5.4) Monocytes # (Auto) 1.0 10 ^3/uL (0-1.3) Eosinophils # (Auto) 0.2 10 ^3/uL (0-0.8) Basophils # (Auto) 0.1 10 ^3/uL (0-0.2) Nucleated Red Blood Cells 0.7 % Prothrombin Time 12.8 sec (9.3-11.8) Prothrombin Time INR 1.23 (0.9-1.15) Sodium Level 141 mmol/L (136-145) Potassium Level 4.5 mmol/L (3.5-5.1) Chloride Level 105 mmol/L (98-107) Carbon Dioxide Level 28 mmol/L (20-31) Anion Gap 8 (5-15) Blood Urea Nitrogen 22 mg/dL (9-23) Creatinine 0.94 mg/dL (0.700-1.30) Glomerular Filtration Rate Calc 88 mL/min (>90) BUN/Creatinine Ratio 23.4 (10.0-20.0) Serum Glucose 92 mg/dL (74-106) Calcium Level 9.0 mg/dL (8.7-10.4) Total Bilirubin 0.6 mg/dL (0.2-1.0) Aspartate Amino Transferase (AST) 25 U/L (<34) Alanine Aminotransferase (ALT) 21 U/L (7-40) Alkaline Phosphatase 59 U/L (46-116) Total Protein 6.5 g/dL (5.7-8.2) Albumin 3.9 g/dL (3.2-4.8) Hemoglobin A1c 6.1 % A1C (<5.7) Test 04/24/25 05:35 04/23/25 15:26 Hepatitis B Surface Antigen Negative (Negative) Hepatitis C Antibody Negative (Negative) Erythrocyte Sedimentation Rate 12 mm/hr (0-20) Lactic Acid Level 1.2 mmol/L (0.4-2.0) C-Reactive Protein High Sensitivity 0.63 mg/dL (<1.0) Other Laboratory Tests 05/01/25 05:18 04/30/25 05:02 Brief Hx & Hospital Course: 04/25 patient has feet wrap bilaterally wound Care on board patient has diabetic foot ulcers bilateral they are wrapped. Patient is vehemently asking for eval by deliver driver. Apparently patient has diabetic ulcers have been somewhat chronic and not improving. He has podiatry appointment 7-8 months away which he can not further tolerate. On admission patient CT bilateral foot showed concerns for 5th metatarsal possible bony degradation on left, right was less concerning. Patient was started on clindamycin and tried to down escalate to ceftriaxone to avoid C diff exposure but patient has nausea once starting see ceftriaxone. We will avoid clindamycin given patient had recent C diff infection. and consult Podiatry. We will try get MRI for feet bilaterally Cardiology we will help clear for MRI given patient has pacemaker. 04/26- MRI today bilateral foot. Pending Podiatry evaluation. Wound Care following. Labs stable. ESR CRP stable. Continue IV antibiotics. If negative for osteomyelitis patient can likely be discharge tomorrow over the weekend with oral antibiotics and close follow up with Podiatry outpatient. Patient is on doxy IV. Avoiding Cipro and clinda due to patient having history of C diff infection. Patient try ceftriaxone but developed? Nausea/vomit, thus we are avoiding. Continue doxycycline. Pending MRI reads. - MRI results are back with no osteomyelitis of either foot. Patient continues to receive IV antibiotics and improving. Patient has MRSA nares in is being given Bactroban bilateral nares daily. Weekend physician has concern for C diff and has ordered stool cultures. 04/29- podiatry consult for patient today. Dietary wants to get intra op cultures tomorrow. NPO midnight. Continue IV antibiotics. Stool cultures Which are thus far negative. No concern for diarrhea 04/30 podiatry plans to take patient to OR today for wound samples for culture. Possible DC thereafter pending further Podiatry recommendations. patient s/p OR has significant bleed staining all wound with blood R>L. will repeat admission today and repeat CBC tomorrow AM. Otherwise podiatry sign off and ok with discharge, as podiatry plans to follow-up outpatient for ongoing care and f/u on intraoperative cultures. possible dc tomorow once bleeding controlled. 05/01 - bleed stopped. seen by PT. seen by podiatry. cleared for discharge as plan below. diagnosis: Diabetic foot ulcer bilateral with acute worsening infection Ruled out osteomyelitis Hypertension Diabetes Recent C diff infection MRSA nares colonization discharge plan: - doxycycline 100mg twice daily for 5 days. - continue use of diabetic shoes - homehealth for wound care and medication management aid. dressings changed every other day with Betadine-soaked gauze, Kerlix, Marco - followup with Dr vences in podiatry clinic to review hospitalization and follow-up on wounds and follow-up on intraoperative wound cultures - continue other home medications not mentioned above. - follow-up with primary provider to review discharge. - follow-up with DC clinic to check-up on wound. Condition at Discharge: Good Final Diagnosis/Problems List Diabetic foot ulcer bilateral with acute worsening infection Ruled out osteomyelitis Hypertension Diabetes Recent C diff infection MRSA nares colonization Discharge Disposition: Home with Health Services Discharge Instruct/Medications Diet: Consistent carbohydrate Activity: No Restrictions, As Tolerated Follow Up/Referral: See below Medications: See below Discharge Statement: "Patient was advised to return to the ER or call 911 if any headaches, dizziness, shortness of breath, chest pain, abdominal pain, bleeding, fevers, or worsening of medical condition. Patient was counseled about treatment plan, medications, possible side effects, patientverbalized understanding. All questions were answered to the best of my ability. This discharge took greater then 30 minutes in planning, reviewing documentation, counseling the patient, and discussing with other team members." Date of Service: May 01, 2025 Billing Provider: MARIANGEL RIVERS MD Common Visit Codes: [id number] DISCH DAY >30min MARIANGEL RIVERS MD May 01, 2025 16:38
[2025-05-01 17:00] VITALS: BP 119/70; PULSE 80; RESP 20; TEMP 97.7; O2SAT 95
== END 2025-05-01 18:25 | disposition home health service (06) | DRG 638 ==
LOC: ER 14:18 → OVERFLOW 19:30 → WEST WING 22:26 → EAST 04-28 22:31
PROVIDERS: ADMIT Student in an Organized Health Care Education/Training Program; ATTEND Student in an Organized Health Care Education/Training Program
PROC: 0Y9M0ZZ Drainage of Right Foot, Open Approach (ICD-10-PCS; 2025-04-30)
PROC: 0Y9N0ZZ Drainage of Left Foot, Open Approach (ICD-10-PCS; principal; 2025-04-30 13:05)
DX: E11.621 Type 2 diabetes mellitus with foot ulcer (principal); L02.611 Cutaneous abscess of right foot; L03.116 Cellulitis of left lower limb; L03.115 Cellulitis of right lower limb; L02.612 Cutaneous abscess of left foot; I10 Essential (primary) hypertension; E78.5 Hyperlipidemia, unspecified; L97.529 Non-pressure chronic ulcer of other part of left foot with unspecified severity; L97.519 Non-pressure chronic ulcer of other part of right foot with unspecified severity; I48.91 Unspecified atrial fibrillation; I25.10 Atherosclerotic heart disease of native coronary artery without angina pectoris; Z95.0 Presence of cardiac pacemaker; Z95.5 Presence of coronary angioplasty implant and graft; Z79.4 Long term (current) use of insulin; Z79.899 Other long term (current) drug therapy; Z80.0 Family history of malignant neoplasm of digestive organs; Z80.1 Family history of malignant neoplasm of trachea, bronchus and lung; Z82.49 Family history of ischemic heart disease and other diseases of the circulatory system; Z83.3 Family history of diabetes mellitus; Z86.19 Personal history of other infectious and parasitic diseases
CPT/HCPCS: 36415; 73700; 73718; 80048; 80053; 82962; 83036; 83605; 85025; 85610; 85652; 86141; 86803; 87045; 87070; 87075; 87081; 87205; 87340; 87427; 87493; 96365; 99291; G0378; J0690; J1815; J2003; J2250; J2405; J2543; J2704; J3490

== ENCOUNTER 2025-06-14 11:52 | Inpatient (IN) | payer OTHER, MEDICAID ==
[~2025-06-14] VITALS: Ht 177.8 cm; Wt 90.8 kg
[~2025-06-14 11:52] MED LIST changes: +DOXY1CAP57 PO
[2025-06-14 12:50] VITALS: BP 127/72; PULSE 76; RESP 18; TEMP 97.6; O2SAT 99
[2025-06-14 12:54] VITALS: PULSE 74; RESP 18; O2SAT 99
[2025-06-14 12:55] VITALS: BP 127/72; PULSE 74; RESP 18; TEMP 98; O2SAT 99
[2025-06-14] MEDS ORDERED: DEXTROSE (50%) 50ML SYRG IV PRN (14:15)
[2025-06-14 15:25] LABS: Hematocrit 54.4 % (41.0-53.0); Hemoglobin 18.4 g/dL (13.5-17.5); Mean Corpuscular Hemoglobin 30.4 pg (28.0-32.0); Mean Corpuscular Volume 89.6 fL (80.0-100.0); Nucleated Red Blood Cells % 0.5 %
[2025-06-14 15:40] LABS: Alanine Aminotransferase 25 U/L (7-40); Alkaline Phosphatase 81 U/L (46-116); Anion Gap 8 (5-15); BUN/Creatinine Ratio 13.1 (10.0-20.0); Bilirubin, Total 0.8 mg/dL (0.2-1.0); Blood Urea Nitrogen 13 mg/dL (9-23); Calcium 10.0 mg/dL (8.7-10.4); Carbon Dioxide 28 mmol/L (20-31); Chloride 105 mmol/L (98-107); Potassium 4.3 mmol/L (3.5-5.1); Sodium 141 mmol/L (136-145)
[2025-06-14 15:41] LABS: Albumin 5.1 g/dL (3.2-4.8); Glucose 59 mg/dL (74-106); Total Protein 8.3 g/dL (5.7-8.2)
[2025-06-14] MEDS ORDERED: ACETAMINOPHEN 325 MG TAB PO PRN (16:30)
[2025-06-14] MEDS: ACCU-CHEK COMFORT CURVE STRIP VI SCH (16:41)
[2025-06-14 16:54] VITALS: BP 114/63; PULSE 63; RESP 17; TEMP 96.6; O2SAT 99
[2025-06-14] MEDS: InsuLIN REG 1unit/0.01ml Soln (100units/ml) SC SCH (17:12)
--- NOTE | 2025-06-14 18:35 | DVHHPRES ---
History of Present Illness Resident Creating Document: PBTARIKEAGAN RESIDENT History of Present Illness Patient is a 69-year-old male who came to the hospital because of an ulcer on the heel of the left foot. 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 Has 2 ulcers on the left heel and the little toe of the right which were debrided a few days back. The ulcer on the left heel continued to bleed and have pus. His telegraphic typewriter mechanic has asked him to get admitted for debridement most likely on 06/17. Patient also complains of difficulty swallowing both solids and liquids. The patient mentions he was admitted to the hospital 1 month back for C diff infection. Patient also had a pacemaker placed in 2022 for AFib and stenting was done 1 year ago. Patient mentions smoking history but he has reduced it from 3 packs to 10 cigarettes a day. Past medical history: diabetes, Afib, BRANDO, Past surgical history: tracheostomy was done 30 years back (closed now), pacemaker placed in 2022, ptca x1 in 2023 Past Hospitalization: C diff infection 1 month back Social & Personal history: lives with girlfriend Allergies: Patient seen and examined at bedside. Patient is alert and oriented to time, place person and responding to all questions. Eyes: No Pain, No Vision change, No Conjunctivae inflammation, No Eyelid inflammation, No Other, No Redness ENT: No Ear pain, No Ear discharge, No Nose pain, No Nose discharge, No Nose congestion, No Mouth pain, No Mouth swelling, No Throat pain, No Throat swelling, No Other Cardiovascular: No Chest Pain, No Palpitations, No Orthopnea, No Paroxysmal No Dyspnea, No Edema, No Lt Headedness, No Other Respiratory: No Cough, No Dry, No Shortness of breath, No SOB with exertion, No Wheezing, No Hemoptysis, No Pleuritic Pain, No Sputum, No Other Gastrointestinal: No Nausea, No Vomiting, No Abdominal Pain, No Diarrhea, No Constipation, No Melena, No Hematochezia, No Other Genitourinary: No Dysuria, No Frequency, No Incontinence, No Hematuria, No Retention, No Other Patient is a General Appearance: Cooperative. Well developed. Well nourished. NAD Head Exam: Normal inspection Neck Exam: Normal inspection. Non-tender. Normal alignment Pulmonary/Respiratory: Chest non-tender. Clear bilateral breath sounds, no crackles, no wheezing. Cardiovascular/Chest: Regular rate and rhythm. No murmurs. No JVD. Peripheral Pulses: 2+ Radial (R). 2+ Radial (L) Abdominal Exam: Normal bowel sounds. Soft. normal abdomen, no visible veins, Nontender. No hepatospenomegaly. No masses Ankle Exam: Negative ankle edema Lower extremities: Negative lower extremity edema , patient refused examination of foot Neuro/Mental Status: A&O x4. Coherent. Thoughts/Psych: Normal thought pattern. Appropriate mood and affect. Good ju dgement and insight Skin Exam: Normal inspection. Normal color. Warm. Dry Cardiovascular: AFIB Endocrine: Diabetes Review of Systems Allergies: Coded Allergies: NO KNOWN ALLERGIES (Unverified , 01/23/17) Medications Current Medications Medications Dose Ordered Sig/Baldomero Route Start Time Stop Time Status Last Admin Dose Admin Diagnostic Test (Pha) 1 strip IQ4HR 06/14/25 16:00 06/14/25 16:41 1 STRIP Insulin Human Regular IQ4HR SC 06/14/25 16:00 06/14/25 17:12 2 UNITS Dextrose 50 ml UD PRN IV 06/14/25 14:15 Enoxaparin Sodium 90 mg Q12HR SC 06/14/25 22:00 Gabapentin 300 mg TID PO 06/14/25 22:00 Metoprolol Tartrate 12.5 mg BID PO 06/14/25 22:00 Acetaminophen/ Hydrocodone Bitart 1 tab Q4HPRN PRN PO 06/14/25 16:30 Acetaminophen 325 mg Q4HP PRN PO 06/14/25 16:30 Exam Vital Signs Vital Signs Date Time Temp Pulse Resp B/P (MAP) Pulse Ox O2 Delivery O2 Flow Rate FiO2 06/14/25 16:54 96.6 63 17 114/63 (80) 99 96.6 Labs/Xrays Labs Test 06/14/25 16:30 06/14/25 14:44 Range/Units POC Glucose 157 H 70-106 mg/dl White Blood Count 8.3 4.4-10.8 10^3/uL Red Blood Count 6.07 H 4.5-5.90 10^6/uL Hemoglobin 18.4 H 13.5-17.5 g/dL Hematocrit 54.4 H 41.0-53.0 % Mean Corpuscular Volume 89.6 80.0-100.0 fL Mean Corpuscular Hemoglobin 30.4 28.0-32.0 pg Mean Corpuscular Hemoglobin Concent 33.9 32.0-36.0 g/dL Red Cell Distribution Width 16.4 H 11.8-14.3 % Platelet Count 196 140-450 10^3/uL Mean Platelet Volume 7.8 6.9-10.8 fL Neutrophils (%) (Auto) 60.6 37.0-80.0 % Lymphocytes (%) (Auto) 23.2 10.0-50.0 % Monocytes (%) (Auto) 13.8 H 0.0-12.0 % Eosinophils (%) (Auto) 1.7 0.0-7.0 % Basophils (%) (Auto) 0.7 0.0-2.0 % Neutrophils # (Auto) 5.0 1.6-8.6 10 ^3/uL Lymphocytes # (Auto) 1.9 0.4-5.4 10 ^3/uL Monocytes # (Auto) 1.1 0-1.3 10 ^3/uL Eosinophils # (Auto) 0.1 0-0.8 10 ^3/uL Basophils # (Auto) 0.1 0-0.2 10 ^3/uL Nucleated Red Blood Cells 0.5 % Sodium Level 141 136-145 mmol/L Potassium Level 4.3 3.5-5.1 mmol/L Chloride Level 105 98-107 mmol/L Carbon Dioxide Level 28 20-31 mmol/L Anion Gap 8 5-15 Blood Urea Nitrogen 13 9-23 mg/dL Creatinine 0.99 0.700-1.30 mg/dL Glomerular Filtration Rate Calc 83 >90 mL/min BUN/Creatinine Ratio 13.1 10.0-20.0 Serum Glucose 59 L 74-106 mg/dL Hemoglobin A1c 6.1 H <5.7 % A1C Calcium Level 10.0 8.7-10.4 mg/dL Total Bilirubin 0.8 0.2-1.0 mg/dL Aspartate Amino Transferase (AST) 31 13-40 U/L Alanine Aminotransferase (ALT) 25 7-40 U/L Alkaline Phosphatase 81 46-116 U/L Total Protein 8.3 H 5.7-8.2 g/dL Albumin 5.1 H 3.2-4.8 g/dL SEPSIS Sepsis Screen Physician Orders Admit (06/14/25 14:07) Code Status (06/14/25 14:07) Vital Signs .PER UNIT PROTOCOL (06/14/25 14:07) Review Orders With Adm. (06/14/25 14:07) Consistent Carb(Ccho)Diabetes (06/14/25 Dinner) Notify Md Of Changes From Base (06/14/25 14:07) Advance Directive (06/14/25 14:07) Urinalysis (06/14/25 14:07) Blood Culture (06/14/25 14:07) Urine Bacterial Culture (06/14/25 14:07) Patient Condition (06/14/25 14:07) Allergies (06/14/25 14:07) Drug Screen (06/14/25 14:07) Notify Md Of Changes From Base (06/14/25 14:07) Glucose Blood (Accu-Chek Comfort Curve T (06/14/25 16:00) Insulin R (Human) (Insulin R) (06/14/25 16:00) Dextrose 50% Syringe (06/14/25 14:15) Mrsa Screen (06/14/25 14:23) Enoxaparin Sodium (Lovenox) (06/14/25 22:00) Gabapentin Capsule (Neurontin Capsule) (06/14/25 22:00) Metoprolol Tartrate Tablet (Lopressor Ta (06/14/25 22:00) Hydrocodone-Acet 5/325mg Tab ([place] 5/32 (06/14/25 16:30) Acetaminophen Tablet (Tylenol Tablet) (06/14/25 16:30) Vital Signs Date Time Temp Pulse Resp B/P (MAP) Pulse Ox O2 Delivery O2 Flow Rate FiO2 06/14/25 16:54 96.6 63 17 114/63 (80) 99 96.6 06/14/25 12:55 98.0 74 18 127/72 (90) 99 98.0 06/14/25 12:50 97.6 76 18 127/72 (90) 99 97.6 Laboratory Tests Test 06/14/25 14:44 White Blood Count 8.3 10^3/uL (4.4-10.8) Medications Medications Dose Ordered Sig/Baldomero Route Start Time Stop Time Status Last Admin Dose Admin Diagnostic Test (Pha) 1 strip IQ4HR 06/14/25 16:00 06/14/25 16:41 1 STRIP Insulin Human Regular IQ4HR SC 06/14/25 16:00 06/14/25 17:12 2 UNITS Assessment/Plan Assessment/Plan #diabetic foot ulcer infected ulcer to be debrided on 06/17 uses off-loading shoes #afib on plavix #pacemaker put in 2022 #history of CAD with PTCA of 1 stent type 2 diabtese mellitus -,ild sliding scale insulin -accu-cheks -carbohyrdate consistent diet #peripheral neuropathy -gabapentin 300 mg po tid #BRANDO PUD prophylaxis: not required DVT prophylaxis:lovenox Goals of care: Full code, discussed for 20 minutes on 06/14 Plan discussed with patient Plan discussed with Dr Barrientos Plan discussed with: Patient, Other KEAGAN BUTT RESIDENT Jun 14, 2025 18:34
[2025-06-14 20:00] VITALS: O2SAT 97
[2025-06-14 21:00] VITALS: BP 115/60; PULSE 82; RESP 18; TEMP 97.8; O2SAT 95
[2025-06-14] MEDS: HYDROcodone-ACET 5/325MG TAB PO PRN (21:01)
[2025-06-14] MEDS: METOPROLOL TARTRATE 25 MG TAB PO SCH (21:02)
[2025-06-14] MEDS: GABAPENTIN 300 MG CAP PO SCH (21:02)
[2025-06-14] MEDS: ENOXAPARIN SOD 100 MG/1 ML SYRINGE SC SCH (21:02)
[2025-06-15] VITALS (8 sets, daily range): BP systolic 107–148; BP diastolic 48–77; PULSE 60–92; RESP 17–18; TEMP 97.6–98.7; O2SAT 97–98
[2025-06-15 07:15] LABS: Hematocrit 48.7 % (41.0-53.0); Hemoglobin 16.9 g/dL (13.5-17.5); Mean Corpuscular Hemoglobin 30.7 pg (28.0-32.0); Mean Corpuscular Volume 88.7 fL (80.0-100.0); Nucleated Red Blood Cells % 0.5 %
[2025-06-15 07:20] LABS: Chloride 105 mmol/L (98-107); Potassium 4.3 mmol/L (3.5-5.1); Sodium 140 mmol/L (136-145)
[2025-06-15 07:21] LABS: Anion Gap 7 (5-15); Calcium 9.1 mg/dL (8.7-10.4); Carbon Dioxide 28 mmol/L (20-31)
[2025-06-15 07:26] LABS: BUN/Creatinine Ratio 15.3 (10.0-20.0); Blood Urea Nitrogen 15 mg/dL (9-23)
[2025-06-15 07:27] LABS: Glucose 71 mg/dL (74-106)
[2025-06-15 09:08] LABS: Urine Protein, UAD Normal (Negative)
[2025-06-15 09:11] LABS: Amphetamine Screen, Urine Neg (NEGATIVE); Barbiturate Scree,Urine Neg (NEGATIVE); Benzodiazephine Screen, Urine Neg (NEGATIVE); Cocaine Screen, Urine Neg (NEGATIVE); Opiate Scree,Urine Neg (NEGATIVE)
[2025-06-15 09:17] LABS: Cannabinoid Screen, Urine Neg (NEGATIVE); Phencyclidine Screen, Urine Neg (NEGATIVE)
--- NOTE | 2025-06-15 15:04 | DVHPNRES ---
Progress Note Date Seen: Jun 15, 2025 Resident Creating Document: JOCELYN WINTERS RESIDENT Medical Necessity Reason Pt with a Central, PICC or Fol: No Medical Necessity Reason Patient is a 69-year-old male with prior medical history of type 2 diabetes mellitus, AFib with a pacemaker, CAD, BRANDO, toe amputations, and multiple diabetic foot ulcers, who was admitted for debridement of foot ulcers. He currently has 2 ulcers present on his left heel and fifth toe of the right foot. He is a patient of Dr. Madsen, and recently had debridement of these wounds. However, due to persistent bleeding and secretion of pus from the ulcers on the left heel, Dr. Madsen will be taking him to the OR for debridement on 06/17/2025. On admission, he denied fever, nausea, vomiting, palpitations, and chest pain. Surgical: Tracheostomy (30 years ago), Pacemaker placed in 2022, PTCA x 1 stent in 2023 Social: Refers he has smoked cigarettes for over 30 years, previously smoked 3 packs a day and has come down to 10 cigarettes a day. He states he currently has no interest in quitting despite counseling on affects of cigarette use on his ulcers. Patient seen at bedside. Patient is AOx4, currently states that he feels well, however he complain of bilateral foot pain overnight. Patient states that the pain was throbbing in nature, 7/10, non-radiating, which was mildly improved with [place]. Otherwise, patient is well, denies fever, nausea, vomiting, worsening of pain, chest pain, and palpitations. Vitals have been stable. Follow up labs are within normal range. Patient has been refusing Lovenox, stating that his Charging Machine Operator told him to discontinue all anticoagulants before his procedure. He was educated on the importance of medication adherence and that Lovenox can be used until the day before the procedure, the patient subsequently agreed. He allowed his feet to be unwrapped and inspected. Pain regimen has been adjusted for better control, other ramírez we will continue current management and will continue to monitor. Review of Systems: Constitutional: Denies weight loss, fever and chills. HEENT: Denies changes in vision and hearing. Respiratory: Denies shortness of breath and cough Cardiovascular: Denies chest discomfort or palpitations GI: Denies abdominal distention, abdominal pain, diarrhea : Denies dysuria and urinary frequency. Musculoskeletal: pain in bilateral feet Skin: Denies rash and pruritus. Neurological: denies dizziness headache vision or hearing problems Objective vital signs Vital Sign Date Time Temp Pulse Resp B/P (MAP) Pulse Ox O2 Delivery O2 Flow Rate FiO2 06/15/25 10:08 60 148/77 06/15/25 09:00 98.1 18 97 98.1 06/15/25 08:15 Room Air* 0 21 Total Intake and Output 06/14/25 06/14/25 06/15/25 15:00 23:00 07:00 Intake Total 500 ml 800 ml Output Total 1 ml 350 ml Balance 499 ml 450 ml medications Current Medications Medications Dose Ordered Sig/Baldomero Route Start Time Stop Time Status Last Admin Dose Admin Diagnostic Test (Pha) 1 strip IQ4HR 06/14/25 16:00 06/15/25 11:51 1 STRIP Insulin Human Regular IQ4HR SC 06/14/25 16:00 06/14/25 19:53 2 UNITS Dextrose 50 ml UD PRN IV 06/14/25 14:15 Enoxaparin Sodium 90 mg Q12HR SC 06/14/25 22:00 06/15/25 11:36 90 MG Gabapentin 300 mg TID PO 06/14/25 22:00 06/15/25 14:20 300 MG Metoprolol Tartrate 12.5 mg BID PO 06/14/25 22:00 06/15/25 10:08 12.5 MG Acetaminophen 325 mg Q4HP PRN PO 06/14/25 16:30 Acetaminophen/ Hydrocodone Bitart 1 tab Q4HP PRN PO 06/15/25 12:15 Examination General: Patient AOx4. Patient following commands HEENT: Normocephalic, atraumatic, normal reactive pupils, EOM intact, pink conjunctivae, pink moist mucous membrane Respiratory/pulmonary: Bilateral chest expansion, vesicular murmurs present in almost all lung edwards, associated with some wheezing mainly in lower right lung field, no crackles Cardiovascular: Normal RRR, normal S1 and S2 Abdomen: Abdomen nondistended, normal bowel sounds, soft, no pain to palpation in any of the abdominal quadrants, no palpable masses. Extremities: Presence of ulcer on left heel some bleeding was noted when gauze was removed, no pus present, presence of small ulcer on side of left foot, presence of ulcer on the plantar surface of right foot with minor bleeding upon gauze removal, present no presence of pus, there is no peripheral edema present at the lower extremities, pulses decreased bilaterally Skin: No rashes or pruritus Neurological: Intact cranial nerves with no focal neurologic deficits laboratory and microbiology Laboratory Tests 06/15/25 05:22 Test 06/15/25 05:22 Range/Units Serum Glucose 71 L 74-106 mg/dL Microbiology Date/Time Source Procedure Growth Status 06/14/25 16:52 Nose MRSA Screen - Final Complete 06/14/25 14:44 Blood Blood Culture - Preliminary NO GROWTH AFTER 24 HOURS OF INCUBATION. Resulted Problem List/Assessment/Plan Problem List/Assessment/Plan Assessment and Plan: Infected diabetic foot ulcers - pending debridement on 06/17 - use of off-loading shoes Intractable foot pain, due to above - [place] 5 mg Q 4 p.o. p.r.n., discontinued - [place] 10 mg p.o. q.4 hours PRN - Acetaminophen 325 mg p.o. q.4 hours PRN History of AFib on plavix - Pacemaker placed in 2022 - Currently off Plavix due to procedure - Lovenox 90 mg sc q.12 hours, to be discontinued the day before surgery Presence of pacemaker History of CAD with PTCA of 1 stent Type 2 diabetes mellitus - mild sliding scale insulin - Accu-Cheks - Carbohydrate consistent diet Hypertension - monitor blood pressure Peripheral neuropathy - Gabapentin 300 mg p.o. t.i.d. GI prophylaxis: Not indicated Case discussed with Dr. Xie. Goals of care discussed with the patient for over 35 minutes. FULL CODE. Plan discussed with: Patient My Orders My Orders Orders - JOCELYN WINTERS RESIDENT Procedure Category Date Status Time Hydrocodone-Acet PHA 06/15/25 In Process 10/325mg Tab ([place] 12:15 Date of Service: Jun 15, 2025 Billing Provider: ANGELA XIE MD Common Visit Codes: [id number] INP/OBS CARE(HIGH) JOCELYN WINTERS RESIDENT Jun 15, 2025 15:04 ANGELA XIE MD Jun 15, 2025 19:49
[2025-06-15] MEDS: HYDROcodone-ACET 10/325MG TAB PO PRN (15:29)
[2025-06-16] VITALS (8 sets, daily range): BP systolic 103–136; BP diastolic 44–79; PULSE 59–79; RESP 15–17; TEMP 97.5–98.4; O2SAT 94–100
[2025-06-16 06:50] LABS: Hematocrit 47.1 % (41.0-53.0); Hemoglobin 16.2 g/dL (13.5-17.5); Mean Corpuscular Hemoglobin 30.2 pg (28.0-32.0); Mean Corpuscular Volume 87.7 fL (80.0-100.0); Nucleated Red Blood Cells % 0.2 %
[2025-06-16 06:59] LABS: Chloride 105 mmol/L (98-107); Potassium 4.4 mmol/L (3.5-5.1); Sodium 140 mmol/L (136-145)
[2025-06-16 07:00] LABS: Anion Gap 6 (5-15); Calcium 8.9 mg/dL (8.7-10.4); Carbon Dioxide 29 mmol/L (20-31)
[2025-06-16 07:05] LABS: BUN/Creatinine Ratio 18.4 (10.0-20.0); Blood Urea Nitrogen 16 mg/dL (9-23); Glucose 81 mg/dL (74-106)
[2025-06-16] MEDS ORDERED: VANCOMYCIN PER PHARMACY 0 MG IV SCH (13:00)
[2025-06-16] MEDS ORDERED: ALBUTEROL SULF 2.5 MG/0.5ML(0.5%) NEB SOLN NEB PRN (13:00)
--- NOTE | 2025-06-16 14:31 | DVH ---
CHEST RADIOGRAPH Indication: persistent cough Technique: Single frontal view of the chest was obtained Comparison: None FINDINGS: Lines and Tubes: Left pacemaker Lungs: No focal consolidation. Pleura: No effusion. No pneumothorax. Cardiomediastinal contours: Cardiomegaly with CHF Bones: No acute osseous abnormality. IMPRESSION: Cardiomegaly with CHF
--- NOTE | 2025-06-16 14:49 | DVHPNRES ---
Progress Note Date Seen: Jun 16, 2025 Resident Creating Document: KEAGAN BUTT RESIDENT Medical Necessity Reason Pt with a Central, PICC or Fol: No Subjective Review of Systems Patient is a 69-year-old male with prior medical history of type 2 diabetes mellitus, AFib with a pacemaker, CAD, BRANDO, toe amputations, and multiple diabetic foot ulcers, who was admitted for debridement of foot ulcers. He currently has 2 ulcers present on his left heel and fifth toe of the right foot. He is a patient of Dr. Madsen, and recently had debridement of these wounds. However, due to persistent bleeding and secretion of pus from the ulcers on the left heel, Dr. Madsen will be taking him to the OR for debridement on 06/17/2025. On admission, he denied fever, nausea, vomiting, palpitations, and chest pain. He complained of bilateral foot pain overnight on the day of admission but it has now resolved. Patient stated that the pain was throbbing in nature, 7/10, non-radiating, which was mildly improved with [place]. Patient refused Lovenox, stating that his Director Of Revenue Cycle Management told him to discontinue all anticoagulants before his procedure. He was educated on the importance of medication adherence and that Lovenox can be used until the day before the procedure, the patient subsequently agreed. He allowed his feet to be unwrapped and inspected. Pain regimen was adjusted for better control. The patient has been put on zosyn and vancomycin as prescribed by Dr Crawford for surgery tomorrow. Patient had some nausea for which he was given zofran. Chest xray showed cardiomegaly and CHF. An echo has been ordered. Patient started having shortness of breath and itching on starting vancomycin, so it was discontinued and he was put on linezolid bid. allergy: vancomycin Surgical: Tracheostomy (30 years ago), Pacemaker placed in 2022, PTCA x 1 stent in 2023 Social: Refers he has smoked cigarettes for over 30 years, previously smoked 3 packs a day and has come down to 10 cigarettes a day. He states he currently has no interest in quitting despite counseling on affects of cigarette use on his ulcers. Review of Systems: Constitutional: Denies weight loss, fever and chills. HEENT: Denies changes in vision and hearing. Respiratory: Denies shortness of breath and cough Cardiovascular: Denies chest discomfort or palpitations GI: Denies abdominal distention, abdominal pain, diarrhea : Denies dysuria and urinary frequency. Musculoskeletal: pain in bilateral feet Skin: Denies rash and pruritus. Neurological: denies dizziness headache vision or hearing problems General: Patient AOx4. Patient following commands HEENT: Normocephalic, atraumatic, normal reactive pupils, EOM intact, pink conjunctivae, pink moist mucous membrane Respiratory/pulmonary: Bilateral chest expansion, vesicular murmurs present in almost all lung edwards, associated with some wheezing mainly in lower right lung field, no crackles Cardiovascular: Normal RRR, normal S1 and S2 Abdomen: Abdomen nondistended, normal bowel sounds, soft, no pain to palpation in any of the abdominal quadrants, no palpable masses. Extremities: there is no peripheral edema present at the lower extremities, p ulses decreased bilaterally Skin: No rashes or pruritus Neurological: Intact cranial nerves with no focal neurologic deficits Objective vital signs Vital Sign Date Time Temp Pulse Resp B/P (MAP) Pulse Ox O2 Delivery O2 Flow Rate FiO2 06/16/25 13:18 97.8 59 16 133/72 (92) 94 97.8 06/16/25 08:10 Room Air* 0 21 Total Intake and Output 06/15/25 06/15/25 06/16/25 15:00 23:00 07:00 Intake Total 699 ml 1950 ml Output Total 2100 ml Balance -1401 ml 1950 ml medications Current Medications Medications Dose Ordered Sig/Baldomero Route Start Time Stop Time Status Last Admin Dose Admin Diagnostic Test (Pha) 1 strip IQ4HR 06/14/25 16:00 06/16/25 12:10 1 STRIP Insulin Human Regular IQ4HR SC 06/14/25 16:00 06/15/25 19:51 3 UNITS Dextrose 50 ml UD PRN IV 06/14/25 14:15 Enoxaparin Sodium 90 mg Q12HR SC 06/14/25 22:00 06/15/25 21:14 90 MG Gabapentin 300 mg TID PO 06/14/25 22:00 06/16/25 05:32 300 MG Metoprolol Tartrate 12.5 mg BID PO 06/14/25 22:00 06/16/25 09:19 12.5 MG Acetaminophen 325 mg Q4HP PRN PO 06/14/25 16:30 Acetaminophen/ Hydrocodone Bitart 1 tab Q4HP PRN PO 06/15/25 12:15 06/16/25 05:53 1 TAB Vancomycin HCl 0 ml @ 0 mls/hr UD IV 06/16/25 13:00 UNV Piperacillin Sod/ Tazobactam Sod 100 ml @ 25 mls/hr Q6HR IV 06/16/25 18:00 UNV laboratory and microbiology Laboratory Tests 06/16/25 06:16 Test 06/16/25 06:16 Range/Units Serum Glucose 81 74-106 mg/dL Microbiology Date/Time Source Procedure Growth Status 06/15/25 08:33 Voided Urine Urine Culture - Preliminary Resulted 06/14/25 16:52 Nose MRSA Screen - Final Complete 06/14/25 14:44 Blood Blood Culture - Preliminary NO GROWTH AFTER 24 HOURS OF INCUBATION. Resulted Labs and/or images reviewed: Labs reviewed by me, Image(s) reviewed by me Problem List/Assessment/Plan Problem List/Assessment/Plan Infected diabetic foot ulcers - pending debridement on 06/17 - use of off-loading shoes Intractable foot pain, due to above - [place] 5 mg Q 4 p.o. p.r.n., discontinued - [place] 10 mg p.o. q.4 hours PRN - Acetaminophen 325 mg p.o. q.4 hours PRN History of AFib on rivaroxaban at - Pacemaker placed in 2022 - Currently off Plavix due to procedure - Lovenox 90 mg sc q.12 hours, to be discontinued toda y Presence of pacemaker History of CAD with PTCA of 1 stent Type 2 diabetes mellitus - mild sliding scale insulin - Accu-Cheks - Carbohydrate consistent diet Hypertension - monitor blood pressure Peripheral neuropathy - Gabapentin 300 mg p.o. t.i.d. GI prophylaxis: Not indicated Case discussed with Dr. Xie. Goals of care discussed with the patient for over 35 minutes. FULL CODE. Plan discussed with: Patient My Orders My Orders Orders - KEAGAN BUTT RESIDENT Procedure Category Date Status Time Chest Xray 1 View XY 06/16/25 Taken 12:57 Vancomycin Per PHA 06/16/25 Logged Pharmacy 13:00 Piperacillin-Tazob PHA 06/16/25 Logged 3.375gm (Zosyn 3.375g 18:00 Date of Service: Jun 16, 2025 Billing Provider: ANGELA XIE MD Common Visit Codes: [id number] INP/OBS CARE(HIGH) FILOMENAROMEOSHIRINCHING TEE RESIDENT Jun 16, 2025 14:49 VERONICA MCCLELLAN RESIDENT Jun 16, 2025 16:42 ANGELA XIE MD Jun 16, 2025 17:53
[2025-06-16] MEDS: VANCOMYCIN 1GM/200ML PM 250 ML IV SCH (15:00)
[2025-06-16] MEDS: ONDANSETRON ODT 4 MG TAB PO ONE (15:00)
[2025-06-16] MEDS: VANCOMYCIN 1GM/250ML KIT 250 ML IV SCH (16:55)
[2025-06-16] MEDS ORDERED: ONDANSETRON HCL 4 MG/2 ML VIAL IV ONE (17:00)
[2025-06-16] MEDS ORDERED: diphenhdrAMINE HCL 50 MG/1 ML VL IM ONE (17:00)
[2025-06-16] MEDS: PIPERACILLIN-TAZOB 3.375GM 100 ML IV SCH (17:20)
[2025-06-16] MEDS: ONDANSETRON HCL 4 MG/2 ML VIAL IV ONE (17:21)
[2025-06-16] MEDS: diphenhdrAMINE HCL 50 MG/1 ML VL IV ONE (17:21)
--- NOTE | 2025-06-16 17:52 | DVHSR ---
APPROVED REPORT EXAM: LIMITED Two-dimensional and M-mode echocardiogram with Doppler and color Doppler. Blood Pressure: 133/72 mmHg DIMENSIONS LVDd3.9 (3.8-5.7cm)LA (2D)5.1 (1.9-4.0cm)Aortic Root3.9 (2.0-3.7cm) LVDs2.6 (2.5-4.0cm)LA (MM) (1.9-4.0cm)Aortic Cusp Exc0.6 (1.5-2.0cm) EF (%) 63.0 (55-70%)Rt. Atrium5.0 (1.9-4.0cm)Asc. Aorta cm IVSd1.7 (0.7-1.1cm)RV (D) (1.8-2.4cm) PWd1.7 (0.7-1.1cm) Mitral Valve MitralMitral Stenosis E wave1.80m/sMV Mean GR.4mmHg A wave0.70m/sMV Peak GR.12mmHg E/A ratio2.62D MVAcm2 DECEL [id number] 1/2 [id number] IVRTmsDop MVA2.10cm2 Aortic Valve Aortic ValveAortic Stenosis V10.70m/Briseida Mean GR.27mmHg V23.50m/Briseida Peak GR.49mmHg LVOT Diameter2.0 (1.8-2.4cm)Doppler AVA0.63cm2 AI P 1/2 Tltd535.38ms Pulmonic Valve V20.70m/s Tricuspid Valve TR Velocity3.00m/s [id number] Conclusion 1. MODERATE DEGREE LVH AND MODERATE DEGREE LV DIASTOLIC DYSFUNCTION 2. LV EF IS 65% 3. VERY HEAVILY CALCIFIED MITRAL LEAFLETS WITH REMARKABLY EXCURSION IT IS SEVERE CALCIFIC MITRAL STENOSIS 4. VERY HEAVILY CALCFIED AORTIC VALVES PEAK AORTIC VALVE GRADIENT IS 49 MM OF HG AND MEAN GRADIENTS IS 27 MM OF HG AORTIC VALVE AREA IS ONLY 0.63 CM SQUARE 5. NO EFFUSION 6. NORMAL RV FUNCTION 7. MODERATE DEGREE PULMONARY HYPERTENSION RVSP IS 48 MM OF HG AND IS MODERATELY HIGH
[2025-06-16] MEDS ORDERED: IPRATROPIUM BROM 0.5 MG/2.5ML INH SOL NEB SCH (18:00)
[2025-06-16] MEDS: LINEZOLID 600MG TABLET PO SCH (21:29)
[2025-06-17] VITALS (8 sets, daily range): BP systolic 98–133; BP diastolic 44–77; PULSE 60–68; RESP 14–20; TEMP 97.6–98.3; O2SAT 94–96
[2025-06-17] MEDS ORDERED: VANCOMYCIN 750MG KIT 100 ML IV SCH (06:00)
[2025-06-17 06:54] LABS: Hematocrit 48.3 % (41.0-53.0); Hemoglobin 16.2 g/dL (13.5-17.5); Mean Corpuscular Hemoglobin 29.8 pg (28.0-32.0); Mean Corpuscular Volume 88.7 fL (80.0-100.0); Nucleated Red Blood Cells % 0.1 %
[2025-06-17 07:02] LABS: Chloride 103 mmol/L (98-107); Potassium 4.6 mmol/L (3.5-5.1); Sodium 138 mmol/L (136-145)
[2025-06-17 07:03] LABS: Anion Gap 8 (5-15); Calcium 8.8 mg/dL (8.7-10.4); Carbon Dioxide 27 mmol/L (20-31)
[2025-06-17 07:08] LABS: BUN/Creatinine Ratio 23.0 (10.0-20.0); Blood Urea Nitrogen 23 mg/dL (9-23); Glucose 88 mg/dL (74-106); INR 1.08 (0.9-1.15); Partial Thromboplastin Time 26.2 SEC (24.5-34.5); Prothrombin Time 11.4 sec (9.3-11.8)
[2025-06-17] MEDS ORDERED: GLYCOPYRROLATE 0.2 MG/ML 1ML VIAL ONE (12:22)
[2025-06-17] MEDS ORDERED: ONDANSETRON HCL 4 MG/2 ML VIAL ONE (12:22)
[2025-06-17] MEDS ORDERED: LIDOCAINE 1% INJ PF 5ML AMP ONE (12:22)
[2025-06-17] MEDS ORDERED: KETOROLAC TROMETH 30 MG/ML 1ML VIAL ONE (12:22)
[2025-06-17] MEDS ORDERED: PROPOFOL 10 MG/ML 20 ML IV ONE (12:22)
--- NOTE | 2025-06-17 12:33 | DVHCONRES ---
Date Seen: Jun 17, 2025 Reason for Consultation Bilateral foot wounds History of Present Illness Patient is a 69-year-old male who came to the hospital because of an ulcer on the heel of the left foot. 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 Has 2 ulcers on the left heel and the little toe of the right which were debrided a few days back. The ulcer on the left heel continued to bleed and have pus. His ad setter has asked him to get admitted for debridement most likely on 06/17. Patient also complains of difficulty swallowing both solids and liquids. The patient mentions he was admitted to the hospital 1 month back for C diff infection. Patient also had a pacemaker placed in 2022 for AFib and stenting was done 1 year ago. Past Medical History See H&P Past Surgical History See H&P Family History: FH: colon cancer FH: diabetes mellitus FH: lung cancer FH: myocardial infarction Allergies: Coded Allergies: Vancomycin (Verified Allergy, Severe, 06/16/25) Home Meds Active Scripts Doxycycline Monohydrate (Doxycycline Monohydrate) 100 Mg Cap, 1 CAP PO BID for 5 Days, #10 CAP 0 Refills Prov:MARIANGEL RIVERS MD 04/30/25 Reported Medications Semaglutide (Ozempic) 4 Mg/3 Ml Inj, 1 MG SC QWEEKLY for 84 Days, #9 04/24/25 Ergocalciferol (Vitamin D) 50,000 Unit Cap, 1 CAP PO QWEEKLY for 84 Days, #12 04/24/25 Hydrocodone-Acetaminophen (Hydrocodone/Acetaminophen 10-325 mg) 1 Tab Tab, 1 TAB PO Q8HR PRN for 30 Days, #90 04/08/25 Clopidogrel Bisulfate (CLOPIDOGREL) 75 Mg Tab, 1 TAB PO DAILY for 90 Days, #90 04/08/25 Ferrous Sulfate (Ferosul) 325 Mg Tab, 1 TAB PO DAILY for 90 Days, #180 04/08/25 Simvastatin (Simvastatin) 40 Mg Tab, 1 TAB PO DAILY for 90 Days, #90 04/08/25 Tizanidine Hydrochloride (Tizanidine Hcl) 4 Mg Tab, 1 TAB PO Q8H for 30 Days, #90 04/08/25 Insulin Glargine (Basaglar Kwikpen) 100 Unit/Ml Inj, 40 UNIT SC DAILY for 75 Days, #30 04/08/25 Allopurinol (Allopurinol) 300 Mg Tab, 1 TAB PO DAILY for 90 Days, #90 04/08/25 Finerenone (Kerendia) 10 Mg Tab, 1 TAB PO DAILY for 90 Days, #90 04/08/25 Dapagliflozin Propanediol (Dapagliflozin Propanediol) 5 Mg Tab, 1 TAB PO DAILY for 90 Days, #90 04/08/25 Isosorbide Mononitrate (Isosorbide Mononitrate Er) 30 Mg Tab, 1 TAB PO DAILY for 90 Days, #90 04/08/25 Gabapentin (Gabapentin) 300 Mg Cap, 1 CAP PO TID for 30 Days, #04/08/25 Rivaroxaban (Xarelto Tablet) 10 Mg Tb, 1 TAB PO DAILY for 30 Days, #30 04/08/25 Metoprolol Tartrate (Lopressor) 25 Mg Tb, 0.5 TAB PO BID for 90 Days, #04/08/25 Current Medications Current Medications Medications (Trade) Dose Ordered Sig/Baldomero Route PRN Reason Start Time Stop Time Status Last Admin Vancomycin HCl 0 ml @ 0 mls/hr UD IV 06/16/25 13:00 06/16/25 17:10 DC Piperacillin Sod/ Tazobactam Sod 100 ml @ 25 mls/hr Q8H IV 06/16/25 16:00 06/17/25 08:11 Albuterol (Ventolin Medneb) 2.5 mg Q6HPRN PRN NEB SHORTNESS OF BREATH 06/16/25 13:00 06/16/25 13:08 DC Ipratropium [place] (Atrovent Medneb) 0.5 mg Q6HWA NEB 06/16/25 18:00 06/16/25 13:08 DC Vancomycin HCl 250 ml @ 250 mls/hr Q1H IV 06/16/25 15:15 06/16/25 15:21 DC Vancomycin HCl 250 ml @ 250 mls/hr Q1H IV 06/16/25 15:30 06/16/25 17:10 DC 06/16/25 16:55 Vancomycin HCl 100 ml @ 100 mls/hr Q12H IV 06/17/25 06:00 06/16/25 17:10 DC Linezolid (Zyvox Tablet) 600 mg BID PO 06/16/25 22:00 06/16/25 21:29 Vital Signs Vital Signs Date Time Temp Pulse Resp B/P (MAP) Pulse Ox O2 Delivery O2 Flow Rate FiO2 06/17/25 08:54 98.2 64 20 98/44 (62) 96 98.2 06/17/25 08:00 Room Air* 0 21 Physical Exam Dermatological: Skin is dry with mild erythema and some maceration around the wound site No gross deformities noted Mild non-pitting edema present bilaterally Right sub 2nd plantar wound approximately 2 x 1.5 x 1 cm with surrounding hyperkeratotic tissue Left sub heel proximally 3 x 2.5 x 1 cm with surrounding maceration and purulent drainage Vascular: Dorsalis pedis and posterior tibial pulses are 1+ bilaterally Capillary refill is under 2 seconds Skin temperature is warm bilaterally Neurologic: Protective sensation is absent on the plantar forefoot bilaterally Monofilament testing reveals decreased sensation in multiple plantar sites Musculoskeletal: Range of motion at the ankle and MTP joints is within normal limits. Strength is 5/5 in all tested muscle groups. Gait is antalgic due to offloading of the affected limb. Labs/Diagnostic Data Labs Test 06/17/25 11:38 06/17/25 05:53 06/15/25 08:35 06/15/25 08:33 Range/Units POC Glucose 120 H 70-106 mg/dl White Blood Count 10.7 # 4.4-10.8 10^3/uL Red Blood Count 5.44 4.5-5.90 10^6/uL Hemoglobin 16.2 13.5-17.5 g/dL Hematocrit 48.3 41.0-53.0 % Mean Corpuscular Volume 88.7 80.0-100.0 fL Mean Corpuscular Hemoglobin 29.8 28.0-32.0 pg Mean Corpuscular Hemoglobin Concent 33.6 32.0-36.0 g/dL Red Cell Distribution Width 16.1 H 11.8-14.3 % Platelet Count 173 140-450 10^3/uL Mean Platelet Volume 7.8 6.9-10.8 fL Neutrophils (%) (Auto) 65.4 37.0-80.0 % Lymphocytes (%) (Auto) 18.3 10.0-50.0 % Monocytes (%) (Auto) 14.6 H 0.0-12.0 % Eosinophils (%) (Auto) 1.1 0.0-7.0 % Basophils (%) (Auto) 0.6 0.0-2.0 % Neutrophils # (Auto) 7.0 1.6-8.6 10 ^3/uL Lymphocytes # (Auto) 2.0 0.4-5.4 10 ^3/uL Monocytes # (Auto) 1.6 H 0-1.3 10 ^3/uL Eosinophils # (Auto) 0.1 0-0.8 10 ^3/uL Basophils # (Auto) 0.1 0-0.2 10 ^3/uL Nucleated Red Blood Cells 0.1 % Prothrombin Time 11.4 9.3-11.8 sec Prothrombin Time INR 1.08 0.9-1.15 Activated Partial Thromboplast Time 26.2 24.5-34.5 SEC Sodium Level 138 136-145 mmol/L Potassium Level 4.6 3.5-5.1 mmol/L Chloride Level 103 98-107 mmol/L Carbon Dioxide Level 27 20-31 mmol/L Anion Gap 8 5-15 Blood Urea Nitrogen 23 9-23 mg/dL Creatinine 1.00 0.700-1.30 mg/dL Glomerular Filtration Rate Calc 82 >90 mL/min BUN/Creatinine Ratio 23.0 H 10.0-20.0 Serum Glucose 88 74-106 mg/dL Calcium Level 8.8 8.7-10.4 mg/dL Urine Color Yellow Yellow Urine Clarity Clear Clear Urine pH 5.5 5.0-9.0 Urine Specific [place] 1.015 1.001-1.035 Urine Protein Normal Negative Urine Ketones Negative Negative Urine Blood Trace H Negative /uL Urine Nitrite Negative Negative Urine Bilirubin Negative Negative Urine Urobilinogen Normal Negative mg/dL Urine Leukocyte Esterase Negative Negative /uL Urine Glucose 4+ H Normal mg/dL Urine Opiates Screen Neg NEGATIVE Urine Fentanyl Screen Neg NEGATIVE Urine Barbiturates Screen Neg NEGATIVE Urine Phencyclidine Screen Neg NEGATIVE Urine Amphetamines Screen Neg NEGATIVE Urine Benzodiazepines Screen Neg NEGATIVE Urine Cocaine Screen Neg NEGATIVE Urine Cannabinoids Screen Neg NEGATIVE Test 06/14/25 14:44 Range/Units Hemoglobin A1c 6.1 H <5.7 % A1C Total Bilirubin 0.8 0.2-1.0 mg/dL Aspartate Amino Transferase (AST) 31 13-40 U/L Alanine Aminotransferase (ALT) 25 7-40 U/L Alkaline Phosphatase 81 46-116 U/L Total Protein 8.3 H 5.7-8.2 g/dL Albumin 5.1 H 3.2-4.8 g/dL Microbiology Date/Time Source Procedure Growth Status 06/15/25 08:33 Voided Urine Urine Culture - Final Complete 06/14/25 16:52 Nose MRSA Screen - Final Complete 06/14/25 14:44 Blood Blood Culture - Preliminary NO GROWTH AFTER 48 HOURS OF INCUBATION. Resulted Problems(with codes): (1) Gastroenteritis (2) Diabetic foot ulcer (3) Cellulitis of foot (4) Metatarsalgia of both feet (5) Diabetic foot ulcer associated with type 2 diabetes mellitus, with fat layer exposed Plan/Recommendation ASSESSMENT: Patient is a 69 year old seen on the floor for a worsening ulcer PLAN: - The patients chart was reviewed, clinical findings were discussed with the patient, the etiologies of the conditions were discussed in detail, and a treatment plan was agreed to at this time, with both oral and written instructions provided. - reviewed advanced imaging - discussed plan is to perform an incision and drainage and Nithin osteotomy - patient has been NPO since midnight - take him to the OR today - we will get cultures in the OR - can weightbear as tolerated in postoperative shoe All questions were answered and concerns addressed to the patient's satisfact ion. The patient was given the phone number to the clinic and was told how to make contact with the clinic should any concerns or questions arise. Patient understands that if any questions or concerns arise prior to the next appointment, we should be contacted immediately. FOLLOW-UP: Continue to follow while inpatient Plan discussed with: Patient Visit Coding Podiatry Date of Service if different f: Jun 17, 2025 Billing Provider: COLTON VARGAS DPM Podiatry Common Visit Codes: CONSULT ONLY Podiatry Consult Codes: [id number] NEW/EST HI 80 COLTON VARGAS DPM Jun 17, 2025 12:33
[2025-06-17] MEDS ORDERED: LIDOCAINE HCL 2% TOP JELLY 5ML TOP ONE (13:05)
[2025-06-17] MEDS: BUPIVACAINE 0.5% P/F INJ 10 ML VIAL ONE (13:07)
[2025-06-17] MEDS ORDERED: FLUMAZENIL 0.1 MG/ML INJ 10ML MDV IV PRN (13:30)
[2025-06-17] MEDS ORDERED: fentaNYL CITRATE 100 MCG/2 ML VL IV PRN (13:30)
[2025-06-17] MEDS ORDERED: ONDANSETRON HCL 4 MG/2 ML VIAL IV PRN (13:30)
[2025-06-17] MEDS ORDERED: hydrALAZINE HCL 20 MG/ML VL IV PRN (13:30)
[2025-06-17] MEDS ORDERED: NALOXONE HCL 0.4 MG/ML VIAL IV PRN (13:30)
--- NOTE | 2025-06-17 13:30 | DVHOP2 ---
Operative Report - 2 Report Details Date: 06/17/25 Preop Diagnosis: 1. Bilateral foot abscess 2. Bilateral foot metatarsalgia 3. Bilateral foot diabetic ulcer 4. Bilateral foot cellulitis Postop Diagnosis: Same as preop Surgeon: Colton Vargas MD Anesthesiologist: See anesthesia Anesthesia: Mac Consent: The patient was informed of the risks and benefits of the procedure. These include but are not limited to complications of anesthesia, postoperative infection, incomplete relief of symptoms, recurrence of symptoms, damage to blood vessels, nerves and tendons, deep venous thrombosis, pulmonary embolism and possible need for repeat surgery in the future. Complications: None Estimated Blood Loss: Minimal Fluids: See anesthesia Findings: Consistent with diagnosis Indications for Surgery: Bilateral foot wounds worsening Name of Procedure Performed 1. Right foot I&D (78363) 2. Left foot I&D (18822) 3. Right foot second metatarsal yoselin osteotomy (83742) 4. Right foot third metatarsal yoselin osteotomy (90050) 5. Left foot fifth metatarsal yoselin osteotomy (14411) Procedure Details Procedure Details: PRE-PROCEDURE INFORMATION: In the pre-op holding area, the extremity to be operated on was clearly marked and the patient verified correct laterality of the marking. The patient was transferred to the OR table and placed in a supine position. A timeout was performed in which identification of the correct patient, procedure, location, and materials was done. The bilat foot and leg were prepped and draped in normal sterile fashion. DESCRIPTION OF PROCEDURE: Attention was directed to the right forefoot where area of fluctuance was noted. An incision was made over this area and was deepened through blunt dissection. The incision was deepened to the level of abscess and bone. Care was taken to the dissection to avoid any neurovascular and tendinous structures. The incision was deepened to the bone, and the abscess appeared to be purulent fluid consistent with pus. The cortices of the bone was then removed with rongeur an all necrotic tissue. After the abscess was drained, the area was irrigated with 3 L normal saline using cysto tubing. The wound was packed with Betadine gauze Attention was directed to the left heel where area of fluctuance was noted. An incision was made over this area and was deepened through blunt dissection. The incision was deepened to the level of abscess and bone. Care was taken to the dissection to avoid any neurovascular and tendinous structures. The incision was deepened to the bone, and the abscess appeared to be purulent fluid consistent with pus. The cortices of the bone was then removed with rongeur an all necrotic tissue. After the abscess was drained, the area was irrigated with 3 L normal saline using cysto tubing. The wound was packed with Betadine gauze Attention was directed to the right 2nd metatarsal head where a stab incision was made. The incision was deepened through blunt and sharp dissection. Care was taken to avoid damage to neurovascular structures throughout dissection. Incision was carried to the level of the 2nd metatarsal head or on fluoroscopy as well as preoperative x-rays, it was noted there was significant plantar flexion of the metatarsal head. Using an MIS bur, the an osteotomy was performed across the neck of the metatarsal head. The metatarsal head was then able to float. It was noted off intraoperative fluoroscopy, there was significant reduction deformity. Attention was directed to the right 3rd metatarsal head where a stab incision was made. The incision was deepened through blunt and sharp dissection. Care was taken to avoid damage to neurovascular structures throughout dissection. Incision was carried to the level of the 3rd metatarsal head or on fluoroscopy as well as preoperative x-rays, it was noted there was significant plantar flexion of the metatarsal head. Using an MIS bur, the an osteotomy was performed across the neck of the metatarsal head. The metatarsal head was then able to float. It was noted off intraoperative fluoroscopy, there was signifi cant reduction deformity. Attention was directed to the left 5th metatarsal head where a stab incision was made. The incision was deepened through blunt and sharp dissection. Care was taken to avoid damage to neurovascular structures throughout dissection. Incision was carried to the level of the 5th metatarsal head or on fluoroscopy as well as preoperative x-rays, it was noted there was significant plantar flexion of the metatarsal head. Using an MIS bur, the an osteotomy was performed across the neck of the metatarsal head. The metatarsal head was then able to float. It was noted off intraoperative fluoroscopy, there was si gnificant reduction deformity. POSTOPERATIVE INFORMATION: The patient tolerated the above noted procedure and anesthesia well and was transferred to the PACU with vital signs stable, and vascular status intact with capillary refill intact to all digits. Patient can weightbear as tolerated in a postoperative shoe. Change the dressings every other day with Betadine-soaked gauze Kerlix. Patient can be discharged home once appears to be more medically stable. Condition Good Disposition Still a Patient Visit Coding Podiatry Date of Service if different f: Jun 17, 2025 Billing Provider: COLTON VARGAS DPM Podiatry Common Visit Codes: PROCEDURE ONLY COLTON VARGAS DPM Jun 17, 2025 13:30
[2025-06-17] MEDS: HYDROmorphone HCL 2 MG/ML VL/or syr IV PRN (13:44)
--- NOTE | 2025-06-17 14:40 | DVHPNRES ---
Progress Note Date Seen: Jun 17, 2025 Resident Creating Document: KEAGAN BUTT RESIDENT Medical Necessity Reason Pt with a Central, PICC or Fol: No Subjective Review of Systems Patient is a 69-year-old male with prior medical history of type 2 diabetes mellitus, AFib with a pacemaker, CAD, BRANDO, toe amputations, and multiple diabetic foot ulcers, who was admitted for debridement of foot ulcers. He currently has 2 ulcers present on his left heel and fifth toe of the right foot. He is a patient of Dr. Madsen, and recently had debridement of these wounds. However, due to persistent bleeding and secretion of pus from the ulcers on the left heel, Dr. Madsen will be taking him to the OR for debridement on 06/17/2025. On admission, he denied fever, nausea, vomiting, palpitations, and chest pain. He complained of bilateral foot pain overnight on the day of admission but it has now resolved. Patient stated that the pain was throbbing in nature, 7/10, non-radiating, which was mildly improved with [place]. Patient refused Lovenox, stating that his Card Puncher told him to discontinue all anticoagulants before his procedure. He was educated on the importance of medication adherence and that Lovenox can be used until the day before the procedure, the patient subsequently agreed. He allowed his feet to be unwrapped and inspected. Pain regimen was adjusted for better control. The patient has been put on zosyn and vancomycin as prescribed by Dr Crawford for surgery tomorrow. Patient had some nausea for which he was given zofran. Chest xray showed cardiomegaly and CHF. An echo has been ordered. Patient started having shortness of breath, itching, disphoresis and projectile vomiting on starting iv vancomycin 1gm at 250ml/hr so it was discontinued and he was put on linezolid bid. Patient was scheduled for debridement of foot ulcers at 12 noon. His echo showed severe calcific MS and AV valve, so cardiology was consulted for the same. allergy: vancomycin Surgical: Tracheostomy (30 years ago), Pacemaker placed in 2022, PTCA x 1 stent in 2023 Social: Refers he has smoked cigarettes for over 30 years, previously smoked 3 packs a day and has come down to 10 cigarettes a day. He states he currently has no interest in quitting despite counseling on affects of cigarette use on his ulcers. Review of Systems: Constitutional: Denies weight loss, fever and chills. HEENT: Denies changes in vision and hearing. Respiratory: Denies shortness of breath and cough Cardiovascular: Denies chest discomfort or palpitations GI: Denies abdominal distention, abdominal pain, diarrhea : Denies dysuria and urinary frequency. Musculoskeletal: pain in bilateral feet Skin: Denies rash and pruritus. Neurological: denies dizziness headache vision or hearing problems General: Patient AOx4. Patient following commands HEENT: Normocephalic, atraumatic, normal reactive pupils, EOM intact, pink conjunctivae, pink moist mucous membrane Respiratory/pulmonary: Bilateral chest expansion, vesicular murmurs present in almost all lung edwards, associated with some wheezing mainly in lower right lung field, no crackles Cardiovascular: Normal RRR, normal S1 and S2 Abdomen: Abdomen nondistended, normal bowel sounds, soft, no pain to palpation in any of the abdominal quadrants, no palpable masses. Extremities: there is no peripheral edema present at the lower extremities, p ulses decreased bilaterally Skin: No rashes or pruritus Neurological: Intact cranial nerves with no focal neurologic deficits Objective vital signs Vital Sign Date Time Temp Pulse Resp B/P (MAP) Pulse Ox O2 Delivery O2 Flow Rate FiO2 06/17/25 14:05 82 19 124/60 (81) 98 06/17/25 13:30 Room Air 06/17/25 13:21 98.2 98.2 06/17/25 13:21 8.0 06/17/25 08:00 21 Total Intake and Output 06/16/25 06/16/25 06/17/25 15:00 23:00 07:00 Intake Total 800 ml 150 ml Output Total 1300 ml Balance -500 ml 150 ml medications Current Medications Medications Dose Ordered Sig/Baldomero Route Start Time Stop Time Status Last Admin Dose Admin Diagnostic Test (Pha) 1 strip IQ4HR 06/14/25 16:00 06/17/25 11:53 1 STRIP Insulin Human Regular IQ4HR SC 06/14/25 16:00 06/15/25 19:51 3 UNITS Dextrose 50 ml UD PRN IV 06/14/25 14:15 Enoxaparin Sodium 90 mg Q12HR SC 06/14/25 22:00 06/15/25 21:14 90 MG Gabapentin 300 mg TID PO 06/14/25 22:00 06/16/25 21:29 300 MG Metoprolol Tartrate 12.5 mg BID PO 06/14/25 22:00 06/16/25 09:19 12.5 MG Acetaminophen 325 mg Q4HP PRN PO 06/14/25 16:30 Acetaminophen/ Hydrocodone Bitart 1 tab Q4HP PRN PO 06/15/25 12:15 06/16/25 21:30 1 TAB Piperacillin Sod/ Tazobactam Sod 100 ml @ 25 mls/hr Q8H IV 06/16/25 16:00 06/17/25 08:11 25 MLS/HR Linezolid 600 mg BID PO 06/16/25 22:00 06/16/25 21:29 600 MG laboratory and microbiology Laboratory Tests 06/17/25 05:53 Test 06/17/25 05:53 Range/Units Serum Glucose 88 74-106 mg/dL Microbiology Date/Time Source Procedure Growth Status 06/15/25 08:33 Voided Urine Urine Culture - Final Complete 06/14/25 16:52 Nose MRSA Screen - Final Complete 06/14/25 14:44 Blood Blood Culture - Preliminary NO GROWTH AFTER 48 HOURS OF INCUBATION. Resulted Labs and/or images reviewed: Labs reviewed by me, Image(s) reviewed by me Problem List/Assessment/Plan Problem List/Assessment/Plan Infected diabetic foot ulcers - pending debridement on 06/17 - use of off-loading shoes Intractable foot pain, due to above - [place]mer 5 mg Q 4 p.o. p.r.n., discontinued - [place] 10 mg p.o. q.4 hours PRN - Acetaminophen 325 mg p.o. q.4 hours PRN History of AFib on plavix - Pacemaker placed in 2022 - Currently off Plavix due to procedure - Lovenox 90 mg sc q.12 hours, to be discontinued today Presence of pacemaker History of CAD with PTCA of 1 stent Type 2 diabetes mellitus - mild sliding scale insulin - Accu-Cheks - Carbohydrate consistent diet Hypertension - monitor blood pressure Peripheral neuropathy - Gabapentin 300 mg p.o. t.i.d. GI prophylaxis: Not indicated Case discussed with Dr. Harris Goals of care discussed with the patient for over 35 minutes. FULL CODE. Plan discussed with: Patient My Orders My Orders Orders - KEAGAN BUTT RESIDENT Procedure Category Date Status Time Echo 2d Mode Cardiac US 06/16/25 Resulted DOP 14:42 Creatinine LAB 06/18/25 Verified 05:00 Vancomycin Per IRENE 06/18/25 In Process Pharmacy Protoc 05:00 Complete Blood Count LAB 06/18/25 Verified 05:00 Allergies IRENE 06/16/25 In Process 18:47 * Cardiology Consult CONS 06/17/25 Transmitted 13:56 Date of Service: Jun 17, 2025 Billing Provider: NATALIA HARRIS MD Common Visit Codes: [id number] INP/OBS CARE(HIGH) KEAGAN BUTT RESIDENT Jun 17, 2025 14:40 NATALIA HARRIS MD Jun 20, 2025 20:38
--- NOTE | 2025-06-17 22:53 | DVHINCON2 ---
Date of service: Jun 17, 2025 Referring Physician Aric Reason for Consultation A Fib History of Present Illness This is a 69-year-old male with a PMH of diabetes, PPM, Afib, BRANDO who presented to the hospital with complaints of ulcer on the heel of the left foot. He is a diabetic who has had ulcers on feet on and off since last 15 years. He has had amputation of the 2 little toes of both feet. Has 2 ulcers on the left heel and the little toe of the right which were debrided a few days back. The ulcer on the left heel continued to bleed and have pus. 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 Patient also complains of difficulty swallowing both solids and liquids. The patient mentions he was admitted to the hospital 1 month back for C diff infection. Patient was admitted. Patient underwent I&D of left and right feet. I am asked to consult on this patient Family History: FH: colon cancer FH: diabetes mellitus FH: lung cancer FH: myocardial infarction Allergies: Coded Allergies: Vancomycin (Verified Allergy, Severe, 06/16/25) Home Meds Active Scripts Doxycycline Monohydrate (Doxycycline Monohydrate) 100 Mg Cap, 1 CAP PO BID for 5 Days, #10 CAP 0 Refills Prov:MARIANGEL RIVERS MD 04/30/25 Reported Medications Semaglutide (Ozempic) 4 Mg/3 Ml Inj, 1 MG SC QWEEKLY for 84 Days, #9 04/24/25 Ergocalciferol (Vitamin D) 50,000 Unit Cap, 1 CAP PO QWEEKLY for 84 Days, #12 04/24/25 Hydrocodone-Acetaminophen (Hydrocodone/Acetaminophen 10-325 mg) 1 Tab Tab, 1 TAB PO Q8HR PRN for 30 Days, #90 04/08/25 Clopidogrel Bisulfate (CLOPIDOGREL) 75 Mg Tab, 1 TAB PO DAILY for 90 Days, #90 04/08/25 Ferrous Sulfate (Ferosul) 325 Mg Tab, 1 TAB PO DAILY for 90 Days, #180 04/08/25 Simvastatin (Simvastatin) 40 Mg Tab, 1 TAB PO DAILY for 90 Days, #90 04/08/25 Tizanidine Hydrochloride (Tizanidine Hcl) 4 Mg Tab, 1 TAB PO Q8H for 30 Days, #90 04/08/25 Insulin Glargine (Basaglar Kwikpen) 100 Unit/Ml Inj, 40 UNIT SC DAILY for 75 Days, #30 04/08/25 Allopurinol (Allopurinol) 300 Mg Tab, 1 TAB PO DAILY for 90 Days, #90 04/08/25 Finerenone (Kerendia) 10 Mg Tab, 1 TAB PO DAILY for 90 Days, #90 04/08/25 Dapagliflozin Propanediol (Dapagliflozin Propanediol) 5 Mg Tab, 1 TAB PO DAILY for 90 Days, #04/08/25 Isosorbide Mononitrate (Isosorbide Mononitrate Er) 30 Mg Tab, 1 TAB PO DAILY for 90 Days, #90 04/08/25 Gabapentin (Gabapentin) 300 Mg Cap, 1 CAP PO TID for 30 Days, #04/08/25 Rivaroxaban (Xarelto Tablet) 10 Mg Tb, 1 TAB PO DAILY for 30 Days, #30 04/08/25 Metoprolol Tartrate (Lopressor) 25 Mg Tb, 0.5 TAB PO BID for 90 Days, #04/08/25 Current Medications Current Medications Medications (Trade) Dose Ordered Sig/Baldomero Route PRN Reason Start Time Stop Time Status Last Admin Vancomycin HCl 100 ml @ 100 mls/hr Q12H IV 06/17/25 06:00 06/16/25 17:10 DC Ondansetron HCl (Zofran) 4 mg ONCE PRN IV NAUSEA / VOMITING 06/17/25 13:30 06/17/25 14:05 DC Naloxone HCl (Narcan) 0.4 mg Q10M PRN IV NARCOTIC REVERSAL 06/17/25 13:30 06/17/25 14:05 DC Flumazenil (Romazicon Injection) 0.2 mg ONCE PRN IV BENZODIAZEPINE REVERSAL 06/17/25 13:30 06/17/25 14:05 DC Hydralazine HCl (Apresoline Injection) 5 mg Q10M PRN IV SBP>160 06/17/25 13:30 06/17/25 14:21 DC Ephedrine Sulfate (ePHEDrine SULFATE) 10 mg Q10M PRN IV SBP LESS THAN 90 06/17/25 13:30 06/17/25 14:12 DC Fentanyl Citrate 25 mcg Q1HP PRN IV BREAKTHROUGH PAIN (7-10) 06/17/25 13:30 06/17/25 14:05 DC Hydromorphone HCl (Dilaudid Injection) 0.5 mg Q10M PRN IV SEVERE PAIN (7-10 PAIN SCALE) 06/17/25 13:30 06/17/25 14:12 DC 06/17/25 14:14 Review of Systems Eyes: No Pain, No Vision change, No Conjunctivae inflammation, No Eyelid inflammation, No Other, No Redness ENT: No Ear pain, No Ear discharge, No Nose pain, No Nose discharge, No Nose congestion, No Mouth pain, No Mouth swelling, No Throat pain, No Throat swelling, No Other Cardiovascular: No Chest Pain, No Palpitations, No Orthopnea, No Paroxysmal No Dyspnea, No Edema, No Lt Headedness, No Other Respiratory: No Cough, No Dry, No Shortness of breath, No SOB with exertion, No Wheezing, No Hemoptysis, No Pleuritic Pain, No Sputum, No Other Gastrointestinal: No Nausea, No Vomiting, No Abdominal Pain, No Diarrhea, No Constipation, No Melena, No Hematochezia, No Other Genitourinary: No Dysuria, No Frequency, No Incontinence, No Hematuria, No Retention, No Other Patient is a Vital Signs Vital Signs Date Time Temp Pulse Resp B/P (MAP) Pulse Ox O2 Delivery O2 Flow Rate FiO2 06/17/25 21:27 59 124/53 06/17/25 21:00 97.9 15 96 97.9 06/17/25 13:30 Room Air 06/17/25 13:21 8.0 06/17/25 08:00 21 Physical Exam GENERAL: Alert and oriented x 3. No acute distress. EYES: PERRL, EOMI. Anicteric. HENT: Moist mucous membranes. LUNGS: Clear to auscultation bilaterally. CARDIOVASCULAR: Regular rate and rhythm. ABDOMEN: Soft, non-tender and non-distended. EXTREMITIES: No edema. NEUROLOGIC: No focal neurological deficits. SKIN: Warm, dry. Bilateral feet ulcers. Labs/Diagnostic Data Labs Test 06/17/25 20:49 06/17/25 05:53 06/15/25 08:35 06/15/25 08:33 Range/Units POC Glucose 279 H 70-106 mg/dl White Blood Count 10.7 # 4.4-10.8 10^3/uL Red Blood Count 5.44 4.5-5.90 10^6/uL Hemoglobin 16.2 13.5-17.5 g/dL Hematocrit 48.3 41.0-53.0 % Mean Corpuscular Volume 88.7 80.0-100.0 fL Mean Corpuscular Hemoglobin 29.8 28.0-32.0 pg Mean Corpuscular Hemoglobin Concent 33.6 32.0-36.0 g/dL Red Cell Distribution Width 16.1 H 11.8-14.3 % Platelet Count 173 140-450 10^3/uL Mean Platelet Volume 7.8 6.9-10.8 fL Neutrophils (%) (Auto) 65.4 37.0-80.0 % Lymphocytes (%) (Auto) 18.3 10.0-50.0 % Monocytes (%) (Auto) 14.6 H 0.0-12.0 % Eosinophils (%) (Auto) 1.1 0.0-7.0 % Basophils (%) (Auto) 0.6 0.0-2.0 % Neutrophils # (Auto) 7.0 1.6-8.6 10 ^3/uL Lymphocytes # (Auto) 2.0 0.4-5.4 10 ^3/uL Monocytes # (Auto) 1.6 H 0-1.3 10 ^3/uL Eosinophils # (Auto) 0.1 0-0.8 10 ^3/uL Basophils # (Auto) 0.1 0-0.2 10 ^3/uL Nucleated Red Blood Cells 0.1 % Prothrombin Time 11.4 9.3-11.8 sec Prothrombin Time INR 1.08 0.9-1.15 Activated Partial Thromboplast Time 26.2 24.5-34.5 SEC Sodium Level 138 136-145 mmol/L Potassium Level 4.6 3.5-5.1 mmol/L Chloride Level 103 98-107 mmol/L Carbon Dioxide Level 27 20-31 mmol/L Anion Gap 8 5-15 Blood Urea Nitrogen 23 9-23 mg/dL Creatinine 1.00 0.700-1.30 mg/dL Glomerular Filtration Rate Calc 82 >90 mL/min BUN/Creatinine Ratio 23.0 H 10.0-20.0 Serum Glucose 88 74-106 mg/dL Calcium Level 8.8 8.7-10.4 mg/dL Urine Color Yellow Yellow Urine Clarity Clear Clear Urine pH 5.5 5.0-9.0 Urine Specific [place] 1.015 1.001-1.035 Urine Protein Normal Negative Urine Ketones Negative Negative Urine Blood Trace H Negative /uL Urine Nitrite Negative Negative Urine Bilirubin Negative Negative Urine Urobilinogen Normal Negative mg/dL Urine Leukocyte Esterase Negative Negative /uL Urine Glucose 4+ H Normal mg/dL Urine Opiates Screen Neg NEGATIVE Urine Fentanyl Screen Neg NEGATIVE Urine Barbiturates Screen Neg NEGATIVE Urine Phencyclidine Screen Neg NEGATIVE Urine Amphetamines Screen Neg NEGATIVE Urine Benzodiazepines Screen Neg NEGATIVE Urine Cocaine Screen Neg NEGATIVE Urine Cannabinoids Screen Neg NEGATIVE Test 06/14/25 14:44 Range/Units Hemoglobin A1c 6.1 H <5.7 % A1C Total Bilirubin 0.8 0.2-1.0 mg/dL Aspartate Amino Transferase (AST) 31 13-40 U/L Alanine Aminotransferase (ALT) 25 7-40 U/L Alkaline Phosphatase 81 46-116 U/L Total Protein 8.3 H 5.7-8.2 g/dL Albumin 5.1 H 3.2-4.8 g/dL Microbiology Date/Time Source Procedure Growth Status 06/15/25 08:33 Voided Urine Urine Culture - Final Complete 06/14/25 16:52 Nose MRSA Screen - Final Complete 06/14/25 14:44 Blood Blood Culture - Preliminary NO GROWTH AFTER 72 HOURS OF INCUBATION. Resulted Assessment Infected diabetic foot ulcers. Intractable foot pain. History of AFib. Presence of pacemaker. History of CAD with PTCA of 1 stent. Type 2 diabetes mellitus. Hypertension. Peripheral neuropathy. Plan/Recommendation I agree with your ongoing assessment and care of plan. Echocardiogram. Van for pain management. DVT prophylactics. IV antibiotics as ordered. Metoprolol. Additional plan as per the hospital course. A total of 45 minutes was spent reviewing the patient record, examining the patient, making a diagnostic and therapeutic plan, discussing this plan with medical personnel, following up on diagnostic studies and following the patient for clinical stability excluding any and all procedures. At least 50% of this time was spent in direct, [id number] contact. Plan discussed with: Patient FEMI TRUJILLO MD Jun 17, 2025 22:53
[2025-06-18] VITALS (7 sets, daily range): BP systolic 121–145; BP diastolic 66–77; PULSE 60–80; RESP 14–16; TEMP 97.5–98.3; O2SAT 91–96
[2025-06-18 05:37] LABS: Hematocrit 44.9 % (41.0-53.0); Hemoglobin 15.4 g/dL (13.5-17.5); Mean Corpuscular Hemoglobin 30.2 pg (28.0-32.0); Mean Corpuscular Volume 87.8 fL (80.0-100.0); Nucleated Red Blood Cells % 0.1 %
[2025-06-18 05:56] LABS: Anion Gap 9 (5-15); Carbon Dioxide 27 mmol/L (20-31); Chloride 103 mmol/L (98-107); Potassium 4.3 mmol/L (3.5-5.1); Sodium 139 mmol/L (136-145)
[2025-06-18 06:01] LABS: Calcium 8.6 mg/dL (8.7-10.4); Glucose 153 mg/dL (74-106)
[2025-06-18 06:02] LABS: BUN/Creatinine Ratio 21.2 (10.0-20.0)
[2025-06-18 06:04] LABS: Blood Urea Nitrogen 24 mg/dL (9-23)
[2025-06-18] MEDS: HYDROmorphone HCL 2 MG/ML VL/or syr ONE (09:15)
--- NOTE | 2025-06-18 15:12 | DVHPNRES ---
Progress Note Date Seen: Jun 18, 2025 Resident Creating Document: KEAGAN BUTT RESIDENT Medical Necessity Reason Pt with a Central, PICC or Fol: No Subjective Review of Systems Patient is a 69-year-old male with prior medical history of type 2 diabetes mellitus, AFib with a pacemaker, CAD, BRANDO, toe amputations, and multiple diabetic foot ulcers, who was admitted for debridement of foot ulcers. He came with 2 ulcers present on his left heel and fifth toe of the right foot. He is a patient of Dr. Madsen, and recently had debridement of these wounds. However, due to persistent bleeding and secretion of pus from the ulcers on the left heel, Dr. Madsen took him to the OR for debridement on 06/17/2025. On admission, he denied fever, nausea, vomiting, palpitations, and chest pain. He complained of bilateral foot pain overnight on the day of admission which resolved next morning. Patient stated that the pain was throbbing in nature, 7/10, non-radiating, which was mildly improved with [place]. Patient refused Lovenox, stating that his Volunteer Services Assistant told him to discontinue all anticoagulants before his procedure. He was educated on the importance of medication adherence and that Lovenox can be used until the day before the procedure, the patient subsequently agreed. He allowed his feet to be unwrapped and inspected. Pain regimen was adjusted for better control. The patient was put on zosyn and vancomycin as prescribed by Dr Crawford for surgery the next day. Patient had some nausea for which he was given zofran. Chest xray showed cardiomegaly and CHF. Patient started having shortness of breath, itching, disphoresis and projectile vomiting on starting iv vancomycin 1gm at 250ml/hr so it was discontinued and he was put on linezolid bid. Patient was scheduled for debridement of foot ulcers at 12 noon. His echo showed severe calcific MS and AV valve, so cardiology was consulted for the same. Post surgery, the patient complained of bleeding from the left wound and being unable to wear his shoes or walk. Dr Madsen was consulted and he stated he will see the patient in the morning the next day. Patient was moved back to consistent carb diet. allergy: vancomycin Surgical: Tracheostomy (30 years ago), Pacemaker placed in 2022, PTCA x 1 stent in 2023 Social: Refers he has smoked cigarettes for over 30 years, previously smoked 3 packs a day and has come down to 10 cigarettes a day. He states he currently has no interest in quitting despite counseling on affects of cigarette use on his ulcers. Review of Systems: Constitutional: Denies weight loss, fever and chills. HEENT: Denies changes in vision and hearing. Respiratory: Denies shortness of breath and cough Cardiovascular: Denies chest discomfort or palpitations GI: Denies abdominal distention, abdominal pain, diarrhea : Denies dysuria and urinary frequency. Musculoskeletal: pain in bilateral feet Skin: Denies rash and pruritus. Neurological: denies dizziness headache vision or hearing problems General: Patient AOx4. Patient following commands HEENT: Normocephalic, atraumatic, normal reactive pupils, EOM intact, pink conjunctivae, pink moist mucous membrane Respiratory/pulmonary: Bilateral chest expansion, vesicular murmurs present in almost all lung edwards, associated with some wheezing mainly in lower right lung field, no crackles Cardiovascular: Normal RRR, normal S1 and S2 Abdomen: Abdomen nondistended, normal bowel sounds, soft, no pain to palpation in any of the abdominal quadrants, no palpable masses. Extremities:both feet are bandaged, there is no peripheral edema present at the lower extremities, pulses decreased bilaterally Skin: No rashes or pruritus Neurological: Intact cranial nerves with no focal neurologic deficits Objective vital signs Vital Sign Date Time Temp Pulse Resp B/P (MAP) Pulse Ox O2 Delivery O2 Flow Rate FiO2 06/18/25 13:00 98.2 60 16 143/74 (97) 94 98.2 06/17/25 20:00 Room Air* 0 21 Total Intake and Output 06/17/25 06/17/25 06/18/25 15:00 23:00 07:00 Intake Total 200 ml 150 ml 500 ml Output Total 400 ml 1500 ml Balance 200 ml -250 ml -1000 ml medications Current Medications Medications Dose Ordered Sig/Baldomero Route Start Time Stop Time Status Last Admin Dose Admin Diagnostic Test (Pha) 1 strip IQ4HR 06/14/25 16:00 06/18/25 12:29 1 STRIP Insulin Human Regular IQ4HR SC 06/14/25 16:00 06/18/25 12:54 3 UNITS Dextrose 50 ml UD PRN IV 06/14/25 14:15 Enoxaparin Sodium 90 mg Q12HR SC 06/14/25 22:00 06/18/25 09:56 90 MG Gabapentin 300 mg TID PO 06/14/25 22:00 06/18/25 14:08 300 MG Metoprolol Tartrate 12.5 mg BID PO 06/14/25 22:00 06/18/25 09:56 12.5 MG Acetaminophen 325 mg Q4HP PRN PO 06/14/25 16:30 Acetaminophen/ Hydrocodone Bitart 1 tab Q4HP PRN PO 06/15/25 12:15 06/18/25 08:24 1 TAB Piperacillin Sod/ Tazobactam Sod 100 ml @ 25 mls/hr Q8H IV 06/16/25 16:00 06/18/25 08:10 25 MLS/HR Linezolid 600 mg BID PO 06/16/25 22:00 06/18/25 09:55 600 MG laboratory and microbiology Laboratory Tests 06/18/25 05:00 Test 06/18/25 05:00 Range/Units Serum Glucose 153 H 74-106 mg/dL Microbiology Date/Time Source Procedure Growth Status 06/15/25 08:33 Voided Urine Urine Culture - Final Complete 06/14/25 16:52 Nose MRSA Screen - Final Complete 06/14/25 14:44 Blood Blood Culture - Preliminary NO GROWTH AFTER 72 HOURS OF INCUBATION. Resulted Labs and/or images reviewed: Labs reviewed by me, Image(s) reviewed by me Problem List/Assessment/Plan Problem List/Assessment/Plan Infected diabetic foot ulcers - pending debridement on 06/17 - use of off-loading shoes Intractable foot pain, due to above - [place] 5 mg Q 4 p.o. p.r.n., discontinued - [place] 10 mg p.o. q.4 hours PRN - Acetaminophen 325 mg p.o. q.4 hours PRN History of AFib on plavix - Pacemaker placed in 2022 - Currently off Plavix due to procedure - Lovenox 90 mg sc q.12 hours, to be discontinued today Presence of pacemaker History of CAD with PTCA of 1 stent Type 2 diabetes mellitus - mild sliding scale insulin - Accu-Cheks - Carbohydrate consistent diet Hypertension - monitor blood pressure Peripheral neuropathy - Gabapentin 300 mg p.o. t.i.d. GI prophylaxis: Not indicated Case discussed with Dr. Harris Goals of care discussed with the patient for over 35 minutes. FULL CODE. Plan discussed with: Patient My Orders My Orders Orders - KEAGAN BUTT Procedure Category Date Status Time Consistent DIET 06/18/25 Transmitted [facility]Diabetes Lunch Date of Service: Jun 18, 2025 Billing Provider: NATALIA HARRIS MD Common Visit Codes: [id number] INP/OBS CARE(HIGH) KEAGAN BUTT Jun 18, 2025 15:12 NATALIA HARRIS MD Jun 20, 2025 20:38
--- NOTE | 2025-06-18 22:24 | DVHPN2 ---
Progress Note - Dictate Date Seen: Jun 18, 2025 Medical Necessity Reason Pt with a Central, PICC or Fol: No Subjective Patient was seen and evaluated in follow up. Patient is complaining of foot pain at surgical site. CBC is unremarkable. BUN 24. Echocardiogram shows an EF of 65%. vital signs Vital Sign Date Time Temp Pulse Resp B/P (MAP) Pulse Ox O2 Delivery O2 Flow Rate FiO2 06/18/25 21:49 68 121/66 06/18/25 21:00 98.2 15 93 98.2 06/18/25 08:00 Room Air* 0 21 Total Intake and Output 06/17/25 06/17/25 06/18/25 15:00 23:00 07:00 Intake Total 200 ml 150 ml 500 ml Output Total 400 ml 1500 ml Balance 200 ml -250 ml -1000 ml medications Current Medications Medications Dose Ordered Sig/Baldomero Route Start Time Stop Time Status Last Admin Dose Admin Diagnostic Test (Pha) 1 strip IQ4HR 06/14/25 16:00 06/18/25 20:17 1 STRIP Insulin Human Regular IQ4HR SC 06/14/25 16:00 06/18/25 20:16 4 UNITS Dextrose 50 ml UD PRN IV 06/14/25 14:15 Enoxaparin Sodium 90 mg Q12HR SC 06/14/25 22:00 06/18/25 21:48 90 MG Gabapentin 300 mg TID PO 06/14/25 22:00 06/18/25 21:48 300 MG Metoprolol Tartrate 12.5 mg BID PO 06/14/25 22:00 06/18/25 21:49 12.5 MG Acetaminophen 325 mg Q4HP PRN PO 06/14/25 16:30 Acetaminophen/ Hydrocodone Bitart 1 tab Q4HP PRN PO 06/15/25 12:15 06/18/25 21:59 1 TAB Piperacillin Sod/ Tazobactam Sod 100 ml @ 25 mls/hr Q8H IV 06/16/25 16:00 06/18/25 16:03 25 MLS/HR Linezolid 600 mg BID PO 06/16/25 22:00 06/18/25 21:48 600 MG objective GENERAL: Alert and oriented x 3. No acute distress. EYES: PERRL, EOMI. Anicteric. HENT: Moist mucous membranes. LUNGS: Clear to auscultation bilaterally. CARDIOVASCULAR: Regular rate and rhythm. ABDOMEN: Soft, non-tender and non-distended. EXTREMITIES: No edema. NEUROLOGIC: No focal neurological deficits. SKIN: Warm, dry. Bilateral feet ulcers. laboratory and microbiology Laboratory Tests 06/18/25 05:00 Test 06/18/25 05:00 Range/Units Serum Glucose 153 H 74-106 mg/dL Problem List Infected diabetic foot ulcers. Intractable foot pain. History of AFib. Presence of pacemaker. History of CAD with PTCA of 1 stent. Type 2 diabetes mellitus. Hypertension. Peripheral neuropathy. Pulmonary hypertension. Assessment/Plan Continued all current supportive medical care. [place] for pain management. DVT prophylactics. IV antibiotics as ordered. Metoprolol. Additional plan as per the hospital course. Plan discussed with: Patient FEMI TRUJILLO MD Jun 18, 2025 22:24
[2025-06-19] VITALS (8 sets, daily range): BP systolic 113–141; BP diastolic 64–88; PULSE 61–72; RESP 14–71; TEMP 97.6–98.1; O2SAT 90–98
[2025-06-19 05:43] LABS: Hematocrit 45.9 % (41.0-53.0); Hemoglobin 15.7 g/dL (13.5-17.5); Mean Corpuscular Hemoglobin 30.3 pg (28.0-32.0); Mean Corpuscular Volume 88.4 fL (80.0-100.0); Nucleated Red Blood Cells % 0.1 %
[2025-06-19 05:48] LABS: Chloride 104 mmol/L (98-107); Potassium 4.5 mmol/L (3.5-5.1); Sodium 139 mmol/L (136-145)
[2025-06-19 05:49] LABS: Anion Gap 7 (5-15); Calcium 8.8 mg/dL (8.7-10.4); Carbon Dioxide 28 mmol/L (20-31)
[2025-06-19 05:54] LABS: BUN/Creatinine Ratio 18.0 (10.0-20.0); Blood Urea Nitrogen 18 mg/dL (9-23); Glucose 92 mg/dL (74-106)
--- NOTE | 2025-06-19 14:44 | DVHPNRES ---
Progress Note Date Seen: Jun 19, 2025 Resident Creating Document: KEAGAN BUTT RESIDENT Medical Necessity Reason Pt with a Central, PICC or Fol: No Subjective Review of Systems Patient is a 69-year-old male with prior medical history of type 2 diabetes mellitus, AFib with a pacemaker, CAD, BRANDO, toe amputations, and multiple diabetic foot ulcers, who was admitted for debridement of foot ulcers. He came with 2 ulcers present on his left heel and fifth toe of the right foot. He is a patient of Dr. Madsen, and recently had debridement of these wounds. However, due to persistent bleeding and secretion of pus from the ulcers on the left heel, Dr. Madsen took him to the OR for debridement on 06/17/2025. On admission, he denied fever, nausea, vomiting, palpitations, and chest pain. He complained of bilateral foot pain overnight on the day of admission which resolved next morning. Patient stated that the pain was throbbing in nature, 7/10, non-radiating, which was mildly improved with [place]. Patient refused Lovenox, stating that his Turbinated Bone Grinder told him to discontinue all anticoagulants before his procedure. He was educated on the importance of medication adherence and that Lovenox can be used until the day before the procedure, the patient subsequently agreed. He allowed his feet to be unwrapped and inspected. Pain regimen was adjusted for better control. The patient was put on zosyn and vancomycin as prescribed by Dr Crawford for surgery the next day. Patient had some nausea for which he was given zofran. Chest xray showed cardiomegaly and CHF. Patient started having shortness of breath, itching, disphoresis and projectile vomiting on starting iv vancomycin 1gm at 250ml/hr so it was discontinued and he was put on linezolid bid. Patient was scheduled for debridement of foot ulcers at 12 noon. His echo showed severe calcific MS and AV valve, so cardiology was consulted for the same. Post surgery, the patient complained of bleeding from the left wound and being unable to wear his shoes or walk. Dr Madsen was consulted and he stated he will see the patient in the morning the next day. Patient was moved back to consistent carb diet. Patient still has some bleeding with soaked bandages. We are waiting for evaulation by Dr Coker. allergy: vancomycin Surgical: Tracheostomy (30 years ago), Pacemaker placed in 2022, PTCA x 1 stent in 2023 Social: Refers he has smoked cigarettes for over 30 years, previously smoked 3 packs a day and has come down to 10 cigarettes a day. He states he currently has no interest in quitting despite counseling on affects of cigarette use on his ulcers. Review of Systems: Constitutional: Denies weight loss, fever and chills. HEENT: Denies changes in vision and hearing. Respiratory: Denies shortness of breath and cough Cardiovascular: Denies chest discomfort or palpitations GI: Denies abdominal distention, abdominal pain, diarrhea : Denies dysuria and urinary frequency. Musculoskeletal: pain in bilateral feet Skin: Denies rash and pruritus. Neurological: denies dizziness headache vision or hearing problems General: Patient AOx4. Patient following commands HEENT: Normocephalic, atraumatic, normal reactive pupils, EOM intact, pink conjunctivae, pink moist mucous membrane Respiratory/pulmonary: Bilateral chest expansion, vesicular murmurs present in almost all lung edwards, associated with some wheezing mainly in lower right lung field, no crackles Cardiovascular: Normal RRR, normal S1 and S2 Abdomen: Abdomen nondistended, normal bowel sounds, soft, no pain to palpation in any of the abdominal quadrants, no palpable masses. Extremities:both feet are bandaged, there is no peripheral edema present at the lower extremities, pulses decreased bilaterally Skin: No rashes or pruritus Neurological: Intact cranial nerves with no focal neurologic deficits Objective vital signs Vital Sign Date Time Temp Pulse Resp B/P (MAP) Pulse Ox O2 Delivery O2 Flow Rate FiO2 06/19/25 13:00 97.7 69 71 138/76 (96) 95 97.7 06/19/25 08:00 Room Air* 0 21 Total Intake and Output 06/18/25 06/18/25 06/19/25 15:00 23:00 07:00 Intake Total 100 ml 735 ml 500 ml Output Total 1900 ml 700 ml Balance 100 ml -1165 ml -200 ml medications Current Medications Medications Dose Ordered Sig/Baldomero Route Start Time Stop Time Status Last Admin Dose Admin Diagnostic Test (Pha) 1 strip IQ4HR 06/14/25 16:00 06/19/25 11:40 1 STRIP Insulin Human Regular IQ4HR SC 06/14/25 16:00 06/19/25 11:55 3 UNITS Dextrose 50 ml UD PRN IV 06/14/25 14:15 Enoxaparin Sodium 90 mg Q12HR SC 06/14/25 22:00 06/19/25 09:55 90 MG Gabapentin 300 mg TID PO 06/14/25 22:00 06/19/25 14:03 300 MG Metoprolol Tartrate 12.5 mg BID PO 06/14/25 22:00 06/19/25 09:55 12.5 MG Acetaminophen 325 mg Q4HP PRN PO 06/14/25 16:30 Acetaminophen/ Hydrocodone Bitart 1 tab Q4HP PRN PO 06/15/25 12:15 06/19/25 14:07 1 TAB Piperacillin Sod/ Tazobactam Sod 100 ml @ 25 mls/hr Q8H IV 06/16/25 16:00 06/19/25 08:08 25 MLS/HR Linezolid 600 mg BID PO 06/16/25 22:00 06/19/25 09:55 600 MG laboratory and microbiology Laboratory Tests 06/19/25 04:53 Test 06/19/25 04:53 Range/Units Serum Glucose 92 74-106 mg/dL Microbiology Date/Time Source Procedure Growth Status 06/15/25 08:33 Voided Urine Urine Culture - Final Complete 06/14/25 16:52 Nose MRSA Screen - Final Complete 06/14/25 14:44 Blood Blood Culture - Preliminary NO GROWTH AFTER 72 HOURS OF INCUBATION. Resulted Problem List/Assessment/Plan Problem List/Assessment/Plan Infected diabetic foot ulcers - post status I&D - unable to use off-loading shoes Intractable foot pain, due to above - [place] 5 mg Q 4 p.o. p.r.n., discontinued - [place] 10 mg p.o. q.4 hours PRN - Acetaminophen 325 mg p.o. q.4 hours PRN History of AFib on plavix - Pacemaker placed in 2022 - Currently off Plavix due to procedure - Lovenox 90 mg sc q.12 hours, to be discontinued today Presence of pacemaker History of CAD with PTCA of 1 stent Type 2 diabetes mellitus - mild sliding scale insulin - Accu-Cheks - Carbohydrate consistent diet Hypertension - monitor blood pressure Peripheral neuropathy - Gabapentin 300 mg p.o. t.i.d. GI prophylaxis: Not indicated Case discussed with Dr. Harris Goals of care discussed with the patient for over 35 minutes. FULL CODE. Plan discussed with: Patient Dietary Evaluation Review Comments: Follow CCHO-60 Diet Offer Alexis BID for wound healing Expected Outcomes/Goals: controlled DM, healed wounds. Date of Service: Jun 19, 2025 Billing Provider: NATALIA HARRIS MD Common Visit Codes: [id number] INP/OBS CARE(MOD) KEAGAN BUTT RESIDENT Jun 19, 2025 14:44 NATALIA HARRIS MD Jun 20, 2025 20:39
--- NOTE | 2025-06-19 23:26 | DVHPN2 ---
Progress Note - Dictate Date Seen: Jun 19, 2025 Medical Necessity Reason Pt with a Central, PICC or Fol: No Subjective Patient was seen and evaluated in follow up. Patient is complaining of foot pain. Dressing are C/D/I. BS are WNL. vital signs Vital Sign Date Time Temp Pulse Resp B/P (MAP) Pulse Ox O2 Delivery O2 Flow Rate FiO2 06/19/25 13:00 97.7 69 71 138/76 (96) 95 97.7 06/19/25 08:00 Room Air* 0 21 Total Intake and Output 06/18/25 06/18/25 06/19/25 15:00 23:00 07:00 Intake Total 100 ml 735 ml 500 ml Output Total 1900 ml 700 ml Balance 100 ml -1165 ml -200 ml medications Current Medications Medications Dose Ordered Sig/Baldomero Route Start Time Stop Time Status Last Admin Dose Admin Diagnostic Test (Pha) 1 strip IQ4HR 06/14/25 16:00 06/19/25 11:40 1 STRIP Insulin Human Regular IQ4HR SC 06/14/25 16:00 06/19/25 11:55 3 UNITS Dextrose 50 ml UD PRN IV 06/14/25 14:15 Enoxaparin Sodium 90 mg Q12HR SC 06/14/25 22:00 06/19/25 09:55 90 MG Gabapentin 300 mg TID PO 06/14/25 22:00 06/19/25 14:03 300 MG Metoprolol Tartrate 12.5 mg BID PO 06/14/25 22:00 06/19/25 09:55 12.5 MG Acetaminophen 325 mg Q4HP PRN PO 06/14/25 16:30 Acetaminophen/ Hydrocodone Bitart 1 tab Q4HP PRN PO 06/15/25 12:15 06/19/25 14:07 1 TAB Piperacillin Sod/ Tazobactam Sod 100 ml @ 25 mls/hr Q8H IV 06/16/25 16:00 06/19/25 08:08 25 MLS/HR Linezolid 600 mg BID PO 06/16/25 22:00 06/19/25 09:55 600 MG objective GENERAL: Alert and oriented x 3. No acute distress. EYES: PERRL, EOMI. Anicteric. HENT: Moist mucous membranes. LUNGS: Clear to auscultation bilaterally. CARDIOVASCULAR: Regular rate and rhythm. ABDOMEN: Soft, non-tender and non-distended. EXTREMITIES: No edema. NEUROLOGIC: No focal neurological deficits. SKIN: Warm, dry. Bilateral feet ulcers. laboratory and microbiology Laboratory Tests 06/19/25 04:53 Test 06/19/25 04:53 Range/Units Serum Glucose 92 74-106 mg/dL Problem List Infected diabetic foot ulcers. Intractable foot pain. History of AFib. Presence of pacemaker. History of CAD with PTCA of 1 stent. Type 2 diabetes mellitus. Hypertension. Peripheral neuropathy. Pulmonary hypertension. Assessment/Plan Continued all current supportive medical care. [place] and Tylenol for pain management. DVT prophylactics. IV antibiotics as ordered. Metoprolol. Additional plan as per the hospital course. Plan discussed with: Patient FEMI TRUJILLO MD Jun 19, 2025 14:16
[2025-06-20 01:00] VITALS: BP 122/74; PULSE 73; RESP 18; TEMP 97.6; O2SAT 96
[2025-06-20 05:00] VITALS: BP 142/81; PULSE 60; RESP 18; TEMP 97.7; O2SAT 96
[2025-06-20 05:42] LABS: Hematocrit 45.6 % (41.0-53.0); Hemoglobin 15.5 g/dL (13.5-17.5); Mean Corpuscular Hemoglobin 30.1 pg (28.0-32.0); Mean Corpuscular Volume 88.7 fL (80.0-100.0); Nucleated Red Blood Cells % 0.2 %
[2025-06-20 06:13] LABS: Anion Gap 5 (5-15); Carbon Dioxide 29 mmol/L (20-31); Chloride 104 mmol/L (98-107); Potassium 4.4 mmol/L (3.5-5.1); Sodium 138 mmol/L (136-145)
[2025-06-20 06:19] LABS: BUN/Creatinine Ratio 14.6 (10.0-20.0); Blood Urea Nitrogen 13 mg/dL (9-23)
[2025-06-20 06:23] LABS: Calcium 8.6 mg/dL (8.7-10.4); Glucose 115 mg/dL (74-106)
[2025-06-20 09:00] VITALS: BP 133/85; PULSE 70; RESP 18; TEMP 97.9; O2SAT 91
--- NOTE | 2025-06-20 11:32 | DVHPN2 ---
Subjective Patient is a 69-year-old male who came to the hospital because of an ulcer on the heel of the left foot. 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 Has 2 ulcers on the left heel and the little toe of the right which were debrided a few days back. The ulcer on the left heel continued to bleed and have pus. His railroad dispatcher has asked him to get admitted for debridement most likely on 06/17. Patient also complains of difficulty swallowing both solids and liquids. The patient mentions he was admitted to the hospital 1 month back for C diff infection. Patient also had a pacemaker placed in 2022 for AFib and stenting was done 1 year ago. Changes from previous H/P or p: No Changes Objective Vitals Vital Signs Date Time Temp Pulse Resp B/P (MAP) Pulse Ox O2 Delivery O2 Flow Rate FiO2 06/20/25 09:00 97.9 70 18 133/85 (101) 91 97.9 06/19/25 20:00 Room Air* 0 21 Intake/Output Intake and Output 06/20/25 07:00 Intake Total 2680 ml Output Total 800 ml Balance 1880 ml Intake Oral 2380 ml IV Total 300 ml Output Urine Total 800 ml # Voids 3 Exam Dermatological: Skin is dry with mild erythema and some maceration around the wound site No gross deformities noted Mild non-pitting edema present bilaterally Right foot forefoot ulceration with granular base Left foot heel ulcer with granular base Vascular: Dorsalis pedis and posterior tibial pulses are 1+ bilaterally Capillary refill is under 2 seconds Skin temperature is warm bilaterally Neurologic: Protective sensation is absent on the plantar forefoot bilaterally Monofilament testing reveals decreased sensation in multiple plantar sites Musculoskeletal: Range of motion at the ankle and MTP joints is within normal limits. Strength is 5/5 in all tested muscle groups. Gait is antalgic due to offloading of the affected limb. Medications Current Medications Medications Dose Ordered Sig/Baldomero Route Start Time Stop Time Status Last Admin Dose Admin Diagnostic Test (Pha) 1 strip IQ4HR 06/14/25 16:00 06/20/25 08:00 1 STRIP Insulin Human Regular IQ4HR SC 06/14/25 16:00 06/20/25 08:00 2 UNITS Dextrose 50 ml UD PRN IV 06/14/25 14:15 Enoxaparin Sodium 90 mg Q12HR SC 06/14/25 22:00 06/20/25 08:53 90 MG Gabapentin 300 mg TID PO 06/14/25 22:00 06/20/25 05:17 300 MG Metoprolol Tartrate 12.5 mg BID PO 06/14/25 22:00 06/20/25 08:51 12.5 MG Acetaminophen 325 mg Q4HP PRN PO 06/14/25 16:30 Acetaminophen/ Hydrocodone Bitart 1 tab Q4HP PRN PO 06/15/25 12:15 06/20/25 09:32 1 TAB Piperacillin Sod/ Tazobactam Sod 100 ml @ 25 mls/hr Q8H IV 06/16/25 16:00 06/20/25 08:50 25 MLS/HR Linezolid 600 mg BID PO 06/16/25 22:00 06/20/25 08:51 600 MG Laboratory Results Laboratory Tests 06/20/25 05:17 Chemistry Test 06/20/25 05:17 Calcium Level 8.6 mg/dL (8.7-10.4) L Urinalysis Test 06/15/25 08:35 Urine Color Yellow (Yellow) Urine Clarity Clear (Clear) Urine pH 5.5 (5.0-9.0) Urine Specific [place] 1.015 (1.001-1.035) Urine Protein Normal (Negative) Urine Ketones Negative (Negative) Urine Blood Trace /uL (Negative) H Urine Nitrite Negative (Negative) Urine Bilirubin Negative (Negative) Urine Urobilinogen Normal mg/dL (Negative) Urine Leukocyte Esterase Negative /uL (Negative) Urine Glucose 4+ mg/dL (Normal) H Microbiology Microbiology Date/Time Source Procedure Growth Status 06/15/25 08:33 Voided Urine Urine Culture - Final Complete 06/14/25 16:52 Nose MRSA Screen - Final Complete 06/14/25 14:44 Blood Blood Culture - Final NO GROWTH AFTER 5 DAYS OF INCUBATION. Complete Assessment/Plan Assessment/Plan ASSESSMENT: Patient is a 69 year old seen on the floor follow up s/p foot I&D PLAN: - The patients chart was reviewed, clinical findings were discussed with the patient, the etiologies of the conditions were discussed in detail, and a treatment plan was agreed to at this time, with both oral and written instructions provided. - reviewed advanced imaging - reviewed all of the labs and pathology - wounds appear to be stable and healing appropriately - dressings changed - follow up with me on Tuesday - continue home health wound care All questions were answered and concerns addressed to the patient's satisfaction. The patient was given the phone number to the clinic and was told how to make contact with the clinic should any concerns or questions arise. Patient understands that if any questions or concerns arise prior to the next appointment, we should be contacted immediately. FOLLOW-UP: Continue to follow while inpatient Plan discussed with: Patient Problem List: (1) Gastroenteritis (2) Diabetic foot ulcer (3) Cellulitis of foot (4) Metatarsalgia of both feet (5) Diabetic foot ulcer associated with type 2 diabetes mellitus, with fat layer exposed Visit Coding Podiatry Date of Service if different f: Jun 20, 2025 Billing Provider: COLTON VARGAS DPM Podiatry Common Visit Codes: [id number] INP/OBS CARE(HIGH) COLTON VARGAS DPM Jun 20, 2025 11:32
[2025-06-20 12:34] VITALS: BP 141/77; PULSE 60; RESP 17; TEMP 97.9; O2SAT 96
[2025-06-20] MEDS ORDERED: LINE1TAB6 PO (13:56)
--- NOTE | 2025-06-20 16:24 | DVHDSRES ---
Discharge Summary Date of Admission Resident Creating Document: KEAGAN BUTT RESIDENT Jun 14, 2025 at 12:44 Date of Discharge: Jun 20, 2025 Admitting Diagnosis Diabetic Foot Ulcer Labs/Diagnostic Data: Laboratory Results Test 06/20/25 12:28 06/20/25 05:17 06/17/25 05:53 06/15/25 08:35 POC Glucose 128 mg/dl (70-106) White Blood Count 7.1 10^3/uL (4.4-10.8) Red Blood Count 5.14 10^6/uL (4.5-5.90) Hemoglobin 15.5 g/dL (13.5-17.5) Hematocrit 45.6 % (41.0-53.0) Mean Corpuscular Volume 88.7 fL (80.0-100.0) Mean Corpuscular Hemoglobin 30.1 pg (28.0-32.0) Mean Corpuscular Hemoglobin Concent 33.9 g/dL (32.0-36.0) Red Cell Distribution Width 16.1 % (11.8-14.3) Platelet Count 131 10^3/uL (140-450) Mean Platelet Volume 7.7 fL (6.9-10.8) Neutrophils (%) (Auto) 61.1 % (37.0-80.0) Lymphocytes (%) (Auto) 21.7 % (10.0-50.0) Monocytes (%) (Auto) 14.7 % (0.0-12.0) Eosinophils (%) (Auto) 1.6 % (0.0-7.0) Basophils (%) (Auto) 0.9 % (0.0-2.0) Neutrophils # (Auto) 4.4 10 ^3/uL (1.6-8.6) Lymphocytes # (Auto) 1.5 10 ^3/uL (0.4-5.4) Monocytes # (Auto) 1.0 10 ^3/uL (0-1.3) Eosinophils # (Auto) 0.1 10 ^3/uL (0-0.8) Basophils # (Auto) 0.1 10 ^3/uL (0-0.2) Nucleated Red Blood Cells 0.2 % Sodium Level 138 mmol/L (136-145) Potassium Level 4.4 mmol/L (3.5-5.1) Chloride Level 104 mmol/L (98-107) Carbon Dioxide Level 29 mmol/L (20-31) Anion Gap 5 (5-15) Blood Urea Nitrogen 13 mg/dL (9-23) Creatinine 0.89 mg/dL (0.700-1.30) Glomerular Filtration Rate Calc 93 mL/min (>90) BUN/Creatinine Ratio 14.6 (10.0-20.0) Serum Glucose 115 mg/dL (74-106) Calcium Level 8.6 mg/dL (8.7-10.4) Prothrombin Time 11.4 sec (9.3-11.8) Prothrombin Time INR 1.08 (0.9-1.15) Activated Partial Thromboplast Time 26.2 SEC (24.5-34.5) Urine Color Yellow (Yellow) Urine Clarity Clear (Clear) Urine pH 5.5 (5.0-9.0) Urine Specific [place] 1.015 (1.001-1.035) Urine Protein Normal (Negative) Urine Ketones Negative (Negative) Urine Blood Trace /uL (Negative) Urine Nitrite Negative (Negative) Urine Bilirubin Negative (Negative) Urine Urobilinogen Normal mg/dL (Negative) Urine Leukocyte Esterase Negative /uL (Negative) Urine Glucose 4+ mg/dL (Normal) Test 06/15/25 08:33 06/14/25 14:44 Urine Opiates Screen Neg (NEGATIVE) Urine Fentanyl Screen Neg (NEGATIVE) Urine Barbiturates Screen Neg (NEGATIVE) Urine Phencyclidine Screen Neg (NEGATIVE) Urine Amphetamines Screen Neg (NEGATIVE) Urine Benzodiazepines Screen Neg (NEGATIVE) Urine Cocaine Screen Neg (NEGATIVE) Urine Cannabinoids Screen Neg (NEGATIVE) Hemoglobin A1c 6.1 % A1C (<5.7) Total Bilirubin 0.8 mg/dL (0.2-1.0) Aspartate Amino Transferase (AST) 31 U/L (13-40) Alanine Aminotransferase (ALT) 25 U/L (7-40) Alkaline Phosphatase 81 U/L (46-116) Total Protein 8.3 g/dL (5.7-8.2) Albumin 5.1 g/dL (3.2-4.8) Other Laboratory Tests 06/20/25 05:17 Brief Hx & Hospital Course: Patient is a 69-year-old male with prior medical history of type 2 diabetes mellitus, AFib with a pacemaker, CAD, BRANDO, toe amputations, and multiple diabetic foot ulcers, who was admitted for I&D of foot ulcers. He came with 2 ulcers present on his left heel and fifth toe of the right foot. He is a patient of Dr. Madsen, and recently had I&D of these wounds. However, due to persistent bleeding and secretion of pus from the ulcers on the left heel, Dr. Madsen took him to the OR for I&D on 06/17/2025. On admission, he denied fever, nausea, vomiting, palpitations, and chest pain. He complained of bilateral foot pain overnight on the day of admission which resolved next morning. Patient stated that the pain was throbbing in nature, /10, non-radiating, which was mildly improved with [place]. Patient refused Lovenox, stating that his Technical Clerk told him to discontinue all anticoagulants before his procedure. He was educated on the importance of medication adherence and that Lovenox can be used until the day before the procedure, the patient subsequently agreed. He allowed his feet to be unwrapped and inspected. Pain regimen was adjusted for better control. The patient was put on zosyn and vancomycin as prescribed by Dr Crawford for surgery the next day. Patient had some nausea for which he was given zofran. Chest xray showed cardiomegaly and CHF. Patient started having shortness of breath, itching, disphoresis and projectile vomiting on starting iv vancomycin 1gm at 250ml/hr so it was discontinued and he was put on linezolid bid. Patient was scheduled for debridement of foot ulcers at 12 noon. His echo showed severe calcific MS and AV valve, so cardiology was consulted for the same. Post surgery, the patient complained of bleeding from the left wound and being unable to wear his shoes or walk. Dr Madsen was consulted and he stated he will see the patient in the morning the next day. Patient was moved back to consistent carb diet. Patient still has some bleeding with soaked bandages.The patient was evaluated by Dr Madsen and dressing was done again and patient was asked to follow up with him in his clinic on 06/25. allergy: vancomycin Surgical: Tracheostomy (30 years ago), Pacemaker placed in 2022, PTCA x 1 stent in 2023 Social: Refers he has smoked cigarettes for over 30 years, previously smoked 3 packs a day and has come down to 10 cigarettes a day. He states he currently has no interest in quitting despite counseling on affects of cigarette use on his ulcers. Review of Systems: Constitutional: Denies weight loss, fever and chills. HEENT: Denies changes in vision and hearing. Respiratory: Denies shortness of breath and cough Cardiovascular: Denies chest discomfort or palpitations GI: Denies abdominal distention, abdominal pain, diarrhea : Denies dysuria and urinary frequency. Musculoskeletal: pain in bilateral feet Skin: Denies rash and pruritus. Neurological: denies dizziness headache vision or hearing problems General: Patient AOx4. Patient following commands HEENT: Normocephalic, atraumatic, normal reactive pupils, EOM intact, pink conjunctivae, pink moist mucous membrane Respiratory/pulmonary: Bilateral chest expansion, vesicular murmurs present in almost all lung edwards, associated with some wheezing mainly in lower right lung field, no crackles Cardiovascular: Normal RRR, normal S1 and S2 Abdomen: Abdomen nondistended, normal bowel sounds, soft, no pain to palpation in any of the abdominal quadrants, no palpable masses. Extremities:both feet are bandaged, there is no peripheral edema present at the lower extremities, pulses decreased bilaterally Skin: No rashes or pruritus Neurological: Intact cranial nerves with no focal neurologic deficits Condition at Discharge: Stable Final Diagnosis/Problems List Infected diabetic foot ulcers Intractable foot pain, due to above History of AFib on plavix Presence of pacemaker History of CAD with PTCA of 1 stent Type 2 diabetes mellitus Hypertension Peripheral neuropathy Discharge Disposition: Home with Health Services Discharge Instruct/Medications Diet: Consistent carbohydrate Activity: No Restrictions, As Tolerated Follow Up/Referral: follow up with podiatry in 1 week follow up with PCP in 1-2 weeks Scheduled Allopurinol (Allopurinol), 1 TAB PO DAILY, (Reported) Clopidogrel Bisulfate (Clopidogrel), 1 TAB PO DAILY, (Reported) Dapagliflozin Propanediol (Dapagliflozin Propanediol), 1 TAB PO DAILY, (Reported) Doxycycline Monohydrate (Doxycycline Monohydrate), 1 CAP PO BID Ergocalciferol (Vitamin D), 1 CAP PO QWEEKLY, (Reported) Ferrous Sulfate (Ferosul), 1 TAB PO DAILY, (Reported) Finerenone (Kerendia), 1 TAB PO DAILY, (Reported) Gabapentin (Gabapentin), 1 CAP PO TID, (Reported) Hydrocodone-Acetaminophen (Hydrocodone/Acetaminophen 10-325 mg), 1 TAB PO Q8HR PRN, (Reported) Insulin Glargine (Basaglar Kwikpen), 40 UNIT SC DAILY, (Reported) Isosorbide Mononitrate (Isosorbide Mononitrate Er), 1 TAB PO DAILY, (Reported) Linezolid (Zyvox), 600 MG PO BID Metoprolol Tartrate (Lopressor), 0.5 TAB PO BID, (Reported) Rivaroxaban (Xarelto Tablet), 1 TAB PO DAILY, (Reported) Semaglutide (Ozempic), 1 MG SC QWEEKLY, (Reported) Simvastatin (Simvastatin), 1 TAB PO DAILY, (Reported) Tizanidine Hydrochloride (Tizanidine Hcl), 1 TAB PO Q8H, (Reported) Discharge Statement: "Patient was advised to return to the ER or call 911 if any headaches, dizziness, shortness of breath, chest pain, abdominal pain, bleeding, fevers, or worsening of medical condition. Patient was counseled about treatment plan, medications, possible side effects, patientverbalized understanding. All questions were answered to the best of my ability. This discharge took greater then 30 minutes in planning, reviewing documentation, counseling the patient, and discussing with other team members." ASSESSMENT ASSESSMENT Assessment Same as preop Date of Service: Jun 20, 2025 Billing Provider: NATALIA HUDSON MD Common Visit Codes: 62252-EGY/OBS DISCH DAY >30min KEAGAN BUTT RESIDENT Jun 20, 2025 16:24 NATALIA HUDSON MD Jun 20, 2025 20:39
[2025-06-20 16:46] VITALS: BP 126/75; PULSE 60; RESP 17; TEMP 97.8; O2SAT 97
--- NOTE | 2025-06-20 23:15 | DVHPN2 ---
Progress Note - Dictate Date Seen: Jun 20, 2025 Medical Necessity Reason Pt with a Central, PICC or Fol: No Subjective Patient was seen and evaluated in follow up. Patient has no new complaints at this time. Patient denies any cardiac symptoms. Patient is cardiac stable for discharge. vital signs Vital Sign Date Time Temp Pulse Resp B/P (MAP) Pulse Ox O2 Delivery O2 Flow Rate FiO2 06/20/25 12:34 97.9 60 17 141/77 (98) 96 97.9 06/19/25 20:00 Room Air* 0 21 Total Intake and Output 06/19/25 06/19/25 06/20/25 15:00 23:00 07:00 Intake Total 700 ml 1180 ml 800 ml Output Total 800 ml Balance 700 ml 1180 ml 0 ml medications Current Medications Medications Dose Ordered Sig/Baldomero Route Start Time Stop Time Status Last Admin Dose Admin Diagnostic Test (Pha) 1 strip IQ4HR 06/14/25 16:00 06/20/25 12:00 1 STRIP Insulin Human Regular IQ4HR SC 06/14/25 16:00 06/20/25 08:00 2 UNITS Dextrose 50 ml UD PRN IV 06/14/25 14:15 Enoxaparin Sodium 90 mg Q12HR SC 06/14/25 22:00 06/20/25 08:53 90 MG Gabapentin 300 mg TID PO 06/14/25 22:00 06/20/25 05:17 300 MG Metoprolol Tartrate 12.5 mg BID PO 06/14/25 22:00 06/20/25 08:51 12.5 MG Acetaminophen 325 mg Q4HP PRN PO 06/14/25 16:30 Acetaminophen/ Hydrocodone Bitart 1 tab Q4HP PRN PO 06/15/25 12:15 06/20/25 09:32 1 TAB Piperacillin Sod/ Tazobactam Sod 100 ml @ 25 mls/hr Q8H IV 06/16/25 16:00 06/20/25 08:50 25 MLS/HR Linezolid 600 mg BID PO 06/16/25 22:00 06/20/25 08:51 600 MG objective GENERAL: Alert and oriented x 3. No acute distress. EYES: PERRL, EOMI. Anicteric. HENT: Moist mucous membranes. LUNGS: Clear to auscultation bilaterally. CARDIOVASCULAR: Regular rate and rhythm. ABDOMEN: Soft, non-tender and non-distended. EXTREMITIES: No edema. NEUROLOGIC: No focal neurological deficits. SKIN: Warm, dry. Bilateral feet ulcers. laboratory and microbiology Laboratory Tests 06/20/25 05:17 Test 06/20/25 05:17 Range/Units Serum Glucose 115 H 74-106 mg/dL Problem List Infected diabetic foot ulcers. Intractable foot pain. History of AFib. Presence of pacemaker. History of CAD with PTCA of 1 stent. Type 2 diabetes mellitus. Hypertension. Peripheral neuropathy. Pulmonary hypertension. Assessment/Plan Continued all current supportive medical care. [place] and Tylenol for pain management. DVT prophylactics. IV antibiotics as ordered. Metoprolol. Additional plan as per the hospital course. Dietary Evaluation Review Comments: Follow CCHO-60 Diet Offer Alexis BID for wound healing Expected Outcomes/Goals: controlled DM, healed wounds. Plan discussed with: Patient FEMI TRUJILLO MD Jun 20, 2025 12:50
== END 2025-06-20 16:56 | disposition home health service (06) | DRG 629 ==
LOC: EAST 12:44
PROVIDERS: ADMIT Internal Medicine Geriatric Medicine; ATTEND Podiatrist
PROC: 0Y9M0ZZ Drainage of Right Foot, Open Approach (ICD-10-PCS; 2025-06-17)
PROC: 0QBN0ZZ Excision of Right Metatarsal, Open Approach (ICD-10-PCS; 2025-06-17)
PROC: 0QBP0ZZ Excision of Left Metatarsal, Open Approach (ICD-10-PCS; 2025-06-17)
PROC: 0Y9N0ZZ Drainage of Left Foot, Open Approach (ICD-10-PCS; principal; 2025-06-17 12:55)
DX: E11.621 Type 2 diabetes mellitus with foot ulcer (principal); L02.611 Cutaneous abscess of right foot; L03.115 Cellulitis of right lower limb; L03.116 Cellulitis of left lower limb; L97.528 Non-pressure chronic ulcer of other part of left foot with other specified severity; L97.518 Non-pressure chronic ulcer of other part of right foot with other specified severity; L02.612 Cutaneous abscess of left foot; I27.20 Pulmonary hypertension, unspecified; R13.10 Dysphagia, unspecified; I10 Essential (primary) hypertension; E11.40 Type 2 diabetes mellitus with diabetic neuropathy, unspecified; I48.91 Unspecified atrial fibrillation; G47.33 Obstructive sleep apnea (adult) (pediatric); M77.41 Metatarsalgia, right foot; M77.42 Metatarsalgia, left foot; I25.10 Atherosclerotic heart disease of native coronary artery without angina pectoris; Z88.8 Allergy status to other drugs, medicaments and biological substances; Z95.0 Presence of cardiac pacemaker; Z83.3 Family history of diabetes mellitus; Z82.49 Family history of ischemic heart disease and other diseases of the circulatory system; Z80.1 Family history of malignant neoplasm of trachea, bronchus and lung; Z80.0 Family history of malignant neoplasm of digestive organs
CPT/HCPCS: 36415; 71045; 80048; 80053; 80307; 81003; 82962; 83036; 85025; 85610; 85730; 86850; 86900; 86901; 87040; 87081; 87086; 93306; G0378; J1100; J1815; J1885; J2405; J2543; J2704; J3490; Q0162